=== PATIENT | female | born 2000 | race Caucasian/White ===

== ENCOUNTER → 2025-03-29 | Outpatient (CLI) | payer OTHER, SELFPAY ==
--- OUTSIDE RECORDS SUMMARY | 2025-03-29 07:21 | XMS RPT_ITS | CCD ---
Author Organization [facility] Care Team Providers Care Churn Operator Margarine Name Role Phone Michael Sanchez Attending Unavailable Adarsh, Caty D Primary Care Unavailable Adarsh, Caty D Attending Unavailable Lima, Caty D Primary Care Unavailable Lima, Caty D Admitting Unavailable Lima, Caty D Admitting Unavailable Lima, Caty D Attending Unavailable Adarsh, Caty D Primary Care Unavailable Lima, Caty Unavailable Unavailable Adarsh, Caty D Unavailable Unavailable Faustino Tellez Unavailable Unavailable Unavailable Unavailable Unavailable Unavailable Unavailable Unavailable Unavailable Delroy Gross Attending Unavailabl e Delroy Gross Referring Unavailabl e Rosalinda, MsStacia Bhardwaj Primary Care Unav ailable Delroy Gross Referring Unavailabl e Rosalinda, MsStacia Bhardwaj Primary Care Unav ailable Delroy Gross Attending Unavailabl e Delroy Gross Attending Unavailabl e Delroy Gross Referring Unavailabl e Rosalinda, MsStacia Bhardwaj Primary Care Unav ailable SHERLYN, Dr. JOSEF ORTEZ Attending Unavailab arianne Tellez, Ms. Faustino Bhardwaj Primary Care Unav ailable Rosalinda, Ms. Faustino Bhardwaj Referring Unav ailable SHERLYN, Dr. JOSEF ORTEZ Attending Melissaab arianne PLATA, Dr. JOSEF ORTEZ Referring Unavailab arianne Tellez, Ms. Faustino Bhardwaj Primary Care Unav Faustino Ruiz Unavailable Unavailable Faustino Womack Primary Care Provider Анна López DO Primary Care Provider Maribel DO Анна C Primary Care Provider SHEETS, АННА C Attending Unavailable SHEETS, АННА C Primary Care Unavailable SHEETS, АННА C Referring Unavailable SHEETS, АННА C Primary Care Unavailable SHEETS, АННА C Referring Unavailable SHEETS, АННА C Primary Care Unavailable SELF Referring Unavailable SHEETS, АННА C Attending Unavailable SHEETS, АННА C Attending Unavailable SELF Referring Unavailable SHEETS, АННА C Primary Care Unavailable Faustino Womack Primary Care Provider DELROY GROSS Attending Unavailable FAUSTINO TELLEZ Primary Care Unavailable SHEETS, АННА Lucas Primary Care Unavailable JUAN MCDERMOTT Referring Unavailable JUAN MCDERMOTT Attending Unavailable Assessment, Health Risk Referring Unavaila ble Assessment, Health Risk Attending Unavaila ble Allergies Allergy Classification Reported Allergen(s) Allergy Type Date of Onset Reaction(s) Facility Cephalosporins (antibiotic) (1 source) Cephalosporins (Antibiotic) Drug Allergy 4 [facility] (20 sources) Cephalosporins (Antibiotic); Translations: [cephalosporins] Propensity to adverse reactions to drug (disorder) 4 [facility] (20 sources) Pollen; Translations: [Pollen] Propensity to adverse reactions to drug (disorder) Sneezing [facility] (3 sources) Bee pollen; Translations: [BEE POLLEN] Drug Allergy 4 [facility] Medications Current Medications Medication Drug Class(es) Dates Sig (Normalized) Sig (Original) amitriptyline hydrochloride 25 mg oral tablet (20 sources) Tricyclic Antidepressant Start: 09-23-2024 End: 12-28-2024 take 1 tablet by mouth once daily at bedtime amitriptyline (ELAVIL) 25 mg tablet Indications: Anxiety with depression Take 1 tablet by mouth daily at bedtime. 90 tablet 12/28/2024 Active Start: 06-16-2023 End: 09-21-2024 take 1 tablet by mouth once daily at bedtime amitriptyline (ELAVIL) 25 mg tablet Take 1 tablet by mouth daily at bedtime. 90 tablet 1 07/06/2024 10:05 AM EDT 03/23/2024 09/21/2024 Discontinued Start: 03-26-2021 End: 08-08-2024 take 1 tablet by mouth once daily at bedtime amitriptyline (ELAVIL) 10 mg tablet Take 1 tablet by mouth daily at bedtime. 30 tablet 11 08/11/2024 7:41 AM EDT 08/08/2024 Active Comment on above: Take 1 tablet by surjit th daily at bedtime. Take 1 tablet (10 mg ) by mouth once daily at bedtime. azithromycin 250 mg oral tablet (5 sources) Macrolide Antimicrobial Start: 01-14-2024 azithromycin (ZITHROMAX Z-LESLIE) 250 mg tablet Indications: Bacterial sinusitis 2 tablets by mouth first day then 1 tablet the next 4 days 6 tablet 01/14/2024 Active clobetasol propionate 0.0005 mg/mg topical ointment (20 sources) Corticosteroid Start: 06-05-2023 End: 08-08-2024 clobetasol (TEMOVATE) 0.05 % ointment Apply to vulva 1-2 times/week 45 g 06/08/2023 3:20 PM EST 06/05/2023 Active Start: 09-11-2020 End: 06-05-2023 clobetasol (Temovate) 0.05 % ointment Apply to affected area at bedtime for 2 weeks, then 2-3 times a week. 0 09/11/2020 06/05/2023 Discontinued (Reorder) Start: 09-11-2020 Clobetasol Pro pionate 0.05 % External Ointment Apply small amount to the vulva 2-3 times/week Quantity: 1 Refills: 1 Ordered: 25-Aug-2022 Delroy Rivera Start : 11-Sep-2020 Active Start: 09-11-2020 Clobetasol Pro pionate 0.05 % External Ointment Apply small amount to the vulva 2-3 times/week Quantity: 1 Refills: 1 Ordered: 07-Apr-2022 Delroy Rivera Start : 11-Sep-2020 Active Start: 09-11-2020 Clobetasol Pro pionate 0.05 % External Ointment Apply to affected area at bedtime for 2 weeks, then 2-3 times a week. Quantity: 1 Refills: 1 Ordered: 10-Sep-2021 Walter YULIADelroy Start : 11-Sep-2020 Active Start: 09-11-2020 Clobetasol Pro pionate 0.05 % External Ointment apply sparingly to affected area QHS x 30 days, then every other night x 30 days, then twice weekly x 30days Quantity: 1 Refills: 2 Ordered: 11-Sep-2020 Kwan ROHIT-MAGALI, ROHIT-KRISTINMarci Start : 11-Sep-2020 Active Comment on above: Apply to vulva 1-2 t imes/week estradiol (E2) emollient cream 0.2 mg/gram (CPD) (11 sources) Start: 06-16-2023 estradiol (E2) emollient cream 0.2 mg/gram (CPD) Use 0.5 g vaginally three times a week. 20 g 06/16/2023 Active Start: 06-16-2023 estradiol (E2) emollient cream 0.2 mg/gram (CPD) Use 0.5 g vaginally three times a week. 20 g 0 06/16/2023 Active Comment on above: Use 0.5 g vaginally three times a week. magnesium citrate 58.2 mg/ml oral solution (2 sources) Start: 0 take 150 mL by mouth once daily magnesium citrate solution Take 150 mL by mouth once daily. 02/14/2020 Active multivitamin tablet (11 sources) take 1 tablet by mouth once daily multivitamin tablet Take 1 tablet by mouth once daily. Active take 1 tablet by mouth once raheem y multivitamin tablet Take 1 tablet by mouth once daily. 0 Active Comment on above: Take 1 tablet by surjit th once daily. mupirocin 0.02 mg/mg topical ointment (18 sources) RNA Synthetase Inhibitor Antibacterial Start: 10-13-2020 mupirocin (Bactroban) 2 % ointment Mupirocin 2 % External Ointment Quantity: 22 Refills: 0 Start : 13-Oct-2020 Active 10/13/2020 Active Start: 10-13-2020 Mupirocin 2 % External Ointment Quantity: 22 Refills: 0 Ordered: 13-Oct-2020 DO Start : 13-Oct-2020 Active pharmacy compounding accessory misc (1 source) Start: 08-08-2024 pharmacy compo unding accessory misc Indications: Vulvodynia 0.5 mL 3 (three) times a week. Apply a thin layer around the vaginal opening 2-3 times per week 18 each 4 08/08/2024 Active progesterone 200 mg oral capsule (18 sources) Progesterone Start: 01-15-2024 progesterone m icronized (PROMETRIUM) 200 mg capsule Take one capsule by mouth at bedtime for 14 days if no period for 3 months 14 capsule 11 09/22/2024 5:08 PM EDT 01/15/2024 Active Start: 03-26-2021 take 1 capsule by mo ut at bedtime Progesterone 200 MG Oral Capsule TAKE 1 CAPSULE Bedtime for the first 14 days of the month Quantity: 60 Refills: 3 Ordered: 26-Mar-2021 Delroy Rivera Start : 26-Mar-2021 Active tropicamide 10 mg/ml ophthalmic solution (2 sources) Anticholinergic Start: 09-06-2024 End: 09-06-2024 tropicamide 1 % 1 drop (MYDRIACYL) Start: 09-06-2024 End: 09-06-2024 1 drop, BOTH EYES, DIRECT ED, Starting on Thu09/06/24 at 0830, Until Thu09/06/24 at 2028, Administer for dilation Completed/Discontinued Medications Medication Drug Class(es) Dates Sig (Normalized) Sig (Original) amoxicillin 875 mg / clavulanate 125 mg oral tablet (4 sources) Penicillin-class Antibacterial Start: 10-13-2020 take 1 tablet by mouth twice daily Amoxicillin-Pot Clavulanate 875-125 MG Oral Tablet TAKE 1 TABLET BY MOUTH TWICE DAILY Quantity: 20 Refills: 0 Ordered: 13-Oct-2020 DO Start : 13-Oct-2020 Active Compound Drug (4 sources) Start: 09-10-2021 Compound Drug Estradiol 0.03% with 0.1% Testosterone ointment in a verabase.Pt to apply 0.5 ml to vestibule 2-3 times a week12 weeks with 3 refills. Quantity: 1 Refills: 3 Ordered: 08-Apr-2022 Delroy Rivera Start : 10-Sep-2021 Active Start: 09-10-2021 Compound Drug Estradiol 0.03% with 0.1% Testosterone ointment in a verabase.Pt to apply 0.5 ml to vestibule three time a week.45 ml with one refill Quantity: 1 Refills: 1 Ordered: 10-Sep-2021 Walter YULIA Delroy Start : 10-Sep-2021 Active estradiol 0.1 mg/ml vaginal cream (12 sources) Estrogen Start: 01-29-2021 Estradiol 0.1 MG/GM Vaginal Cream patient to apply pea sized amount of estrace to vulvovaginal area daily for the next 12 weeks Quantity: 1 Refills: 1 Ordered: 29-Jan-2021 Walter YULIADelroy Start : 29-Jan-2021 Active 05/16 TABS (2 sources) Estrogen 05/16 TA BS Refills: 0 Active 05/16 1-20 MG-MCG Oral Tablet (4 sources) take 1 tablet by mouth once daily 05/16 1-20 MG-MCG Oral Tablet TAKE 1 TABLET DAILY. Quantity: 1 Refills: 11 Ordered: 11-Sep-2020 Fried JESUS, YULIA, Marci Active 24 hr metFORMIN hydrochloride 500 mg extended release oral tablet (8 sources) Biguanide Start: 04-16-2021 take 1 tablet by mouth twice daily metFORMIN HCl ER 500 MG Oral Tablet Extended Release 24 Hour Take 1 tablet twice daily Quantity: 180 Refills: 3 Ordered: 09-Jul-2021 Josef Plata MD Start : 16-Apr-2021 Active Problems Active Problems Problem Classification Problem Date Documented Date Episodic/Chronic Abdominal pain (1 source) Pain in pelvis; Translations: [Pelvic and perineal pain] 06-05-2023 Episodic Anxiety disorders (17 sources) Mixed anxiety and depressive disorder; Translations: [Other specified anxiety disorders] Onset: 06-16-2023 06-16-2023 Chronic Bacterial infection; unspecified site (1 source) Other specified bacterial agents as the cause of diseases classified elsewhere; Translations: [Bacterial sinusitis] Onset: 01-14-2024 Episodic Blindness and vision defects (2 sources) Bilateral myopia of eyes; Translations: [Myopia, bilateral] Onset: 09-06-2024 09-06-2024 Episodic Disorders of lipid metabolism (1 source) Mixed hyperlipidemia; Translations: [Mixed hyperlipidemia] 09-23-2023 Chronic Menopausal disorders (16 sources) Atrophy of vagina; Translations: [Postmenopausal atrophic vaginitis] Chronic Menstrual disorders (20 sources) Menorrhagia; Translations: [Excessive or frequent menstruation] Chronic Other endocrine disorders (17 sources) Polycystic ovary; Translations: [Polycystic ovaries] Chronic Other endocrine disorders (13 sources) Polycystic ovary syndrome; Translations: [Polycystic ovaries] Chronic Other female genital disorders (19 sources) Vulvodynia; Translations: [Vulvodynia, unspecified] 06-05-2023 Chronic Other female genital disorders (13 sources) Abnormal uterine bleeding; Translations: [Unspecified disorders of menstruation and other abnormal bleeding from female genital tract] Chronic Other female genital disorders (17 sources) Vulval irritation; Translations: [Other specified noninflammatory disorders of vulva and perineum] Episodic Other female genital disorders (2 sources) Vaginospasm; Translations: [Vaginismus] Onset: 06-16-2023 06-16-2023 Episodic Other non-traumatic joint disorders (2 sources) Knee pain; Translations: [Knee pain] Episodic Other non-traumatic joint disorders (17 sources) Pain in unspecified knee; Translations: [Knee pain] Episodic Other nutritional; endocrine; and metabolic disorders (18 sources) Body mass index 30+ - obesity; Translations: [Obesity, unspecified] Chronic Other nutritional; endocrine; and metabolic disorders (14 sources) Obese class II; Translations: [Obesity, unspecified] Onset: 06-16-2023 06-16-2023 Chronic Other nutritional; endocrine; and metabolic disorders (1 source) Obesity, unspecified; Translations: [Obesity, Class II, BMI 35-39.9] Onset: 06-16-2023 Chronic Other skin disorders (8 sources) Lichen sclerosus et atrophicus; Translations: [Lichen sclerosus] 06-05-2023 Chronic Other skin disorders (19 sources) Macular eruption; Translations: [Rash and other nonspecific skin eruption] Episodic Other upper respiratory infections (2 sources) Bacterial sinusitis; Translations: [Chronic sinusitis, unspecified] Onset: 01-14-2024 01-14-2024 Chronic Past or Other Problems Problem Classification Problem Date Documented Da te Episodic/Chronic Administrative/social admission (5 sources) Patient encounter status; Translations: [Encounter for blood-alcohol and blood-drug test] Onset: 06-20-2023 06-18-2023 Episodic Immunizations and screening for infectious disease (6 sources) Tuberculosis screening status; Translations: [Encounter for screening for respiratory tuberculosis] Onset: 06-16-2023 06-18-2023 Episodic Malaise and fatigue (2 sources) Fatigue; Translations: [Other fatigue] Onset: 06-20-2023 06-16-2023 Episodic Other connective tissue disease (11 sources) Pelvic floor dysfunction; Translations: [Other specified disorders of muscle] Onset: 06-23-2023 06-23-2023 Episodic Other female genital disorders (1 source) Vaginismus; Translations: [Vaginismus] Onset: 06-16-2023 Episodic Other screening for suspected conditions (not mental disorders or infectious disease) (5 sources) Encounter for screening for diseases of the blood and blood-forming organs and certain disorders involving the immune mechanism; Translations: [Encounter for screening for other suspected endocrine disorder] Onset: 06-20-2023 Episodic Unclassified (17 sources) Finding of menstrual bleeding; Translations: [Menstruation] Comment on above: Onset age 11 years; NEGATED: Highlighted row has not occurred!Residual codes; unclassified (4 sources) Disease Episodic Results Test Name Value Interpretation Reference Range Facility Hepatitis B Surface Antibody on 01-16-2025 HEP B Surf Ab Non-Reactive Normal [facility] Comment on above: Result Comment: <8.5 mIU/mL: Non-Reactive 8.5<= x <11.5 mIU/mL: Indeterminate >=11.5 mIU/mL: Reactive Non Reactive: Inconsistent with immunity less than <10 mIU/mL Reactive: Consistent with immunity greater than or equal to 10 mIU/mL Performed By: #### L [id number] #### [facility] [address] [place], [place], [address] TSH W/REFLEX TO FT4on 2024 TSH W/REFLEX TO FT4 1.89 mIU/L Normal [facility] Comment on above: Order Comment: FASTI NG:UNKNOWN FASTING: UNKNOWN Result Comment: Refe rence Range > or = 20 Years 0.40-4.50 Ranges First trimester 0.26-2.66 Second trimester 0.55-2.73 Third trimester 0.43-2.91 Performed By: #### 3 [id number] #### [facility] [address], [address] [place] [address] Cat Cracker Operator: Rudy Tong 01-14-2024 CNOV Office Visit (AGFAMP LE) EVELINA SAM ([id number]) 89 F Date Time Provider Department 01/14/24 9:00 AM АННА LÓPEZ During your visit today, we recorded the following information about you: Temperature Pulse Respiration Blood pressure 97.9 degrees 81/minute 16/minute 110/68 Weight Height 123.4 kg 1.803 m Анна López DO 01/14/2024 1:09 PM Signed Subjective HPI Pt is here for f/u for depression and anxiety Mood is well controlled on elavil 25 mg daily She has had a cough productive of green sputum, chest tightness for 4 weeks She was taking allergy relief medication, now is taking robitussin She has sinus drainage, ear pain that started today, no sore throat, no nausea or vomiting ALLERGIES Allergen Reactions Cephalosporins Hives Current Outpatient Medications Medication Sig Dispense Refill amitriptyline (ELAVIL) 25 mg tablet Take 1 tablet by mouth daily at bedtime. 90 tablet 0 multivitamin tablet Take 1 tablet by mouth once daily. estradiol (E2) emollient cream 0.2 mg/gram (CPD) Use 0.5 g vaginally three times a week. 20 g clobetasol (TEMOVATE) 0.05 % ointment Apply to vulva 1-2 times/week 45 g 0 No current facility-administered medications for this visit. ACTIVE PROBLEM LIST Obesity, Class II, Bmi 35-39.9 Anxiety With Depression Pelvic Floor Dysfunction Social History Tobacco Use Smoking status: Never Smokeless tobacco: Never Vaping Use Vaping status: Never Used Substance Use Topics Alcohol use: Yes Comment: socially Drug use: Never Family History Problem Relation Age of Onset Diabetes Mother Hypertension Mother Hypertension Father Hyperlipidemia Father other (hypertrophic cardiomyopathy) Father other (other) Brother Melanoma Maternal Grandmother Hypertension Maternal Grandmother Melanoma Maternal Grandfather Hypertension Maternal Grandfather Hypertension Paternal Grandmother Diabetes Paternal Grandmother Hypertension Paternal Grandfather Melanoma Maternal Aunt Reviewed past medical history, family history and surgeries. All medications and supplements were reviewed with the patient. Review of Systems Constitutional: Negative for chills, diaphoresis, fever, malaise/fatigue and weight loss. HENT: Positive for congestion. Negative for ear pain and hearing loss. Eyes: Negative for blurred vision and double vision. Respiratory: Positive for cough and sputum production. Negative for shortness of breath. Cardiovascular: Negative for chest pain, palpitations and leg swelling. Gastrointestinal: Negative for constipation, diarrhea and heartburn. Genitourinary: Negative for dysuria and frequency. Musculoskeletal: Negative for back pain, falls, joint pain and myalgias. Skin: Negative for itching and rash. Neurological: Negative for dizziness, weakness and headaches. Endo/Heme/Allergies: Does not bruise/bleed easily. Psychiatric/Behavioral: Negative for depression and substance abuse. The patient does not have insomnia. Objective BP 110/68 Pulse 81 Temp 36.6 ?C (97.9 ?F) Resp 16 Ht 180.3 cm (5' 11) Wt 123.4 kg (272 lb) SpO2 99% BMI 37.94 kg/m? Physical Exam Constitutional: Appearance: Normal appearance. She is obese. HENT: Head: Normocephalic and atraumatic. Nose: Nose normal. Mouth/Throat: Mouth: Mucous membranes are moist. Dentition: Normal dentition. Eyes: General: Lids are normal. Extraocular Movements: Extraocular movements intact. Conjunctiva/sclera: Conjunctivae normal. Pupils: Pupils are equal, round, and reactive to light. Neck: Thyroid: No thyroid mass or thyromegaly. Vascular: No carotid bruit. Trachea: Phonation normal. Cardiovascular: Rate and Rhythm: Normal rate and regular rhythm. Heart sounds: Normal heart sounds. No murmur heard. No friction rub. No gallop. Pulmonary: Effort: Pulmonary effort is normal. Breath sounds: Normal breath sounds. No wheezing or rales. Abdominal: General: Bowel sounds are normal. There is no distension. Palpations: Abdomen is soft. There is no mass. Tenderness: There is no abdominal tenderness. Musculoskeletal: General: No swelling or tenderness. Normal range of motion. Cervical back: Normal range of motion and neck supple. No edema. Lymphadenopathy: Cervical: No cervical adenopathy. Skin: General: Skin is warm and dry. Findings: No erythema or rash. Nails: There is no clubbing. Neurological: Mental Status: She is alert and oriented to person, place, and time. Cranial Nerves: No cranial nerve deficit. Motor: Motor function is intact. Coordination: Coordination normal. Gait: Gait is intact. Psychiatric: Attention and Perception: Attention normal. Mood and Affect: Mood and affect normal. Speech: Speech normal. Behavior: Behavior normal. Behavior is cooperative. Thought Content: Thought content normal. (more content not included)... Normal [facility] 09-22-2023 [place] Telephone (AGWebChaletLE) EVELINA SAM ([id number]) 89 F Date Time Provider Department 09/22/23 АННА LÓPEZ During your visit today, we recorded the following information about you: Angle Brar MA 09/22/2023 7:41 AM Signed ----- Message from Angelina Martinez MA sent at 06/23/2023 5:27 PM EST ----- FLPs in 3 months Анна López DO 09/23/2023 4:33 PM Signed Order attached DO David Newell Julie, MA 09/23/2023 5:29 PM Signed Left message informing patient, phone number to reach the office was left for any questions or concerns. Angelina Martinez MA Allergies As of Date: 09/22/2023 Noted Allergy Reaction CEPHALOSPORINS 06/05/2023 4 - Hives Date Reviewed: 07/14/2023 Reviewed by: Анна López DO - Fully Assessed Reason for Visit: Lab Orders [1688] Primary Visit Diagnosis:Hyperlipidemia, mixed [E78.2] Order(s):LIPID PANEL BASIC [SQLIPB] Order #: [id number] FUTURE Prescriptions as of 09/23/2023 - amitriptyline (ELAVIL) 25 mg tablet Take 1 tablet by mouth daily at bedtime. - multivitamin tablet Take 1 tablet by mouth once daily. - estradiol (E2) emollient cream 0.2 mg/gram (CPD) Use 0.5 g vaginally three times a week. - clobetasol (TEMOVATE) 0.05 % ointment Apply to vulva 1-2 times/week Problem List As Of Date 09/22/2023 Noted Resolved Obesity, Class II, BMI 35-39.9 [E66.9] 06/16/2023 Anxiety with depression [F41.8] 06/16/2023 Pelvic floor dysfunction [M62.89] 06/23/2023 Encounter Status:Closed by ANGELINA MARTINEZ on 09/23/23 [facility] CNOVon 07-14-2023 CNOV Office Visit (AGCHRIS SCHMID) EVELINA SAM ([id number]) 89 F Date Time Provider Department 07/14/23 8:00 AM АННА LÓPEZ During your visit today, we recorded the following information about you: Temperature Pulse Respiration Blood pressure 97.3 degrees 77/minute 16/minute 114/76 Weight Height 125.2 kg 1.803 m Анна López DO 07/27/2023 5:04 PM Signed Subjective The history is provided by the patient. Pt is here for f/u for depression She feels much better after increasing the dosage of amitriptyline from 10 mg to 25 mg daily She has had a dry mouth, but no other problems with the increase in dosage ALLERGIES Allergen Reactions Cephalosporins Hives Current Outpatient Medications Medication Sig Dispense Refill multivitamin tablet Take 1 tablet by mouth once daily. estradiol (E2) emollient cream 0.2 mg/gram (CPD) Use 0.5 g vaginally three times a week. 20 g amitriptyline (ELAVIL) 25 mg tablet Take 1 tablet by mouth daily at bedtime. 90 tablet 0 clobetasol (TEMOVATE) 0.05 % ointment Apply to vulva 1-2 times/week 45 g 0 No current facility-administered medications for this visit. ACTIVE PROBLEM LIST Obesity, Class II, Bmi 35-39.9 Vaginismus Anxiety With Depression Pelvic Floor Dysfunction Social History Tobacco Use Smoking status: Never Smokeless tobacco: Never Vaping Use Vaping Use: Never used Substance Use Topics Alcohol use: Yes Comment: socially Drug use: Never Family History Problem Relation Age of Onset Diabetes Mother Hypertension Mother Hypertension Father Hyperlipidemia Father other (hypertrophic cardiomyopathy) Father other (other) Brother Melanoma Maternal Grandmother Hypertension Maternal Grandmother Melanoma Maternal Grandfather Hypertension Maternal Grandfather Hypertension Paternal Grandmother Diabetes Paternal Grandmother Hypertension Paternal Grandfather Melanoma Maternal Aunt Reviewed past medical history, family history and surgeries. All medications and supplements were reviewed with the patient. Review of Systems Constitutional: Negative for chills, diaphoresis, fever, malaise/fatigue and weight loss. HENT: Negative for ear pain and hearing loss. Eyes: Negative for blurred vision and double vision. Respiratory: Negative for cough and shortness of breath. Cardiovascular: Negative for chest pain, palpitations and leg swelling. Gastrointestinal: Negative for constipation, diarrhea and heartburn. Genitourinary: Negative for dysuria and frequency. Musculoskeletal: Negative for back pain, falls, joint pain and myalgias. Skin: Negative for itching and rash. Neurological: Negative for dizziness, weakness and headaches. Endo/Heme/Allergies: Does not bruise/bleed easily. Psychiatric/Behavioral: Negative for depression and substance abuse. The patient does not have insomnia. Objective BP 114/76 Pulse 77 Temp 36.3 ?C (97.3 ?F) Resp 16 Ht 180.3 cm (5' 11) Wt 125.2 kg (276 lb) SpO2 99% BMI 38.49 kg/m? Physical Exam Constitutional: Appearance: Normal appearance. She is obese. HENT: Head: Normocephalic and atraumatic. Nose: Nose normal. Mouth/Throat: Mouth: Mucous membranes are moist. Dentition: Normal dentition. Eyes: General: Lids are normal. Extraocular Movements: Extraocular movements intact. Conjunctiva/sclera: Conjunctivae normal. Pupils: Pupils are equal, round, and reactive to light. Neck: Thyroid: No thyroid mass or thyromegaly. Vascular: No carotid bruit. Trachea: Phonation normal. Cardiovascular: Rate and Rhythm: Normal rate and regular rhythm. Heart sounds: Normal heart sounds. No murmur heard. No friction rub. No gallop. Pulmonary: Effort: Pulmonary effort is normal. Breath sounds: Normal breath sounds. No wheezing or rales. Abdominal: General: Bowel sounds are normal. There is no distension. Palpations: Abdomen is soft. There is no mass. Tenderness: There is no abdominal tenderness. Musculoskeletal: General: No swelling or tenderness. Normal range of motion. Cervical back: Normal range of motion and neck supple. No edema. Lymphadenopathy: Cervical: No cervical adenopathy. Skin: General: Skin is warm and dry. Findings: No erythema or rash. Nails: There is no clubbing. Neurological: Mental Status: She is alert and oriented to person, place, and time. Cranial Nerves: No cranial nerve deficit. Motor: Motor function is intact. Coordination: Coordination normal. Gait: Gait is intact. Psychiatric: Attention and Perception: Attention normal. Mood and Affect: Mood and affect normal. Speech: Speech normal. Behavior: Behavior normal. Behavior is cooperative. Thought Content: Thought content normal. Cognition and Memory: Cognition and memory normal. Judgment: Judgment normal. ASSESSMENT/PLAN: 1. Anxiety with depression - ICD9: 300.4 (more content not included)... Normal [facility] BLOOD TB SCREEN, INCUBATEDon 06-20-2023 M. tuberculosis tuberculin stim IFN-g Ql (Bld) Negative Normal [facility] Comment on above: Order Comment: Speci men Type: BLOOD SPECIMEN Ordering Facility: [facility] Address: [address] [place] [address] Performed By: #### I NTPGP #### [facility] CLIA [id number] [address] [place] [address] [place] [address] [place] MITOGEN MINUS NIL >9.99 Normal >=0.50 [facility] Comment on above: Order Comment: Speci men Type: BLOOD SPECIMEN Ordering Facility: [facility] Address: [address] [place] [address] Performed By: #### I NTPGP #### [facility] CLIA [id number] [address] [place] [address] OF [facility] TB GAMMA INTERPRETATION Infection with M. tuberculosis complex is unlikely. If latent tuberculosis infection is highly suspected, a negative result does not rule out the infection. Specimens from immunocompromised patients and those <5 years of age may show false negative results. In case of a contact investigation, please repeat 8-12 weeks after a known exposure. Normal [facility] Comment on above: Order Comment: Speci men Type: BLOOD SPECIMEN Ordering Facility: [facility] Address: [address] [place] [address] Performed By: #### I NTPGP #### [facility] CLIA [id number] [address] [place] [address] TB NIL 0.01 IU/mL Normal <=8.00 [facility] Comment on above: Order Comment: Speci men Type: BLOOD SPECIMEN Ordering Facility: [facility] Address: [address] [place] [address] Performed By: #### I NTPGP #### [facility] CLIA [id number] [address] [place] [address] [place] TB1 AG MINUS NIL 0.00 IU/mL Normal <0.35 [facility] Comment on above: Order Comment: Speci men Type: BLOOD SPECIMEN Ordering Facility: [facility] Address: [address] [place] [address] Performed By: #### I NTPGP #### [facility] CLIA [id number] [address] [place] [address] [place] TB2 AG MINUS NIL 0.01 IU/mL Normal <0.35 [facility] Comment on above: Order Comment: Speci vandana Type: BLOOD SPECIMEN Ordering Facility: [facility] Address: [address] [place] [address] Performed By: #### I NTPGP #### [facility] CLIA [id number] [address] [facility] DESK [address] [place] CBC panel Auto (Bld)on 06-20 Erythrocyte distribution width (RBC) [Ratio] 13.0 % 11.5 - 15.0 % [facility] Hematocrit (Bld) [Volume fraction] 40.9 % 36.0 - 46.0 % [facility] Hemoglobin (Bld) [Mass/Vol] 13.0 g/dL 11.5 - 15.5 g/dL [facility] MCH (RBC) [Entitic mass] 28.0 pg 26.0 - 34.0 pg [facility] MCHC (RBC) [Mass/Vol] 31.8 g/dL 30.5 - 36.0 g/dL [facility] MCV (RBC) [Entitic vol] 88.1 fL 80.0 - 100.0 fL [facility] Platelet mean volume (Bld) [Entitic vol] 12.4 fL 9.0 - 12.7 fL [facility] Platelets (Bld) [#/Vol] 239 10*3/uL 150 - 400 k/uL [facility] RBC (Bld) [#/Vol] 4.64 10*6/uL 3.90 - 5.2 0 m/uL [facility] WBC (Bld) [#/Vol] 8.35 10*3/uL 3.70 - 11.00 k/uL [facility] Erythrocyte distribution width (RBC) [Ratio] 13.0 % Normal 11.5-15.0 [facility] Comment on above: Order Comment: Abundio ross Type: BLOOD SPECIMEN Ordering Facility: [facility] Address: [address] [id number] Performed By: #### 5 8410-2 #### [facility] CLIA [id number] [address] [place] [address] OF [facility] Hematocrit (Bld) [Volume fraction] 40.9 % Normal 36.0-46.0 [facility] Comment on above: Order Comment: Speci men Type: BLOOD SPECIMEN Ordering Facility: [facility] Address: [address] [place] [address] Performed By: #### 5 8410-2 #### [facility] CLIA [id number] [address] [place] [address] [place] [facility] Hemoglobin (Bld) [Mass/Vol] 13.0 g/dL Normal 11.5-15.5 [facility] Comment on above: Order Comment: Speci men Type: BLOOD SPECIMEN Ordering Facility: [facility] Address: [address] [place] [address] Performed By: #### 5 8410-2 #### [facility] CLIA [id number] [address] [place] [address] [place] MCH (RBC) [Entitic mass] 28.0 pg Normal 26.0-34.0 [facility] Comment on above: Order Comment: Speci men Type: BLOOD SPECIMEN Ordering Facility: [facility] Address: [address] [place] [address] Performed By: #### 5 8410-2 #### [facility] CLIA [id number] [address] [place] MCHC (RBC) [Mass/Vol] 31.8 g/dL Normal 30.5-36.0 [facility] Comment on above: Order Comment: Speci men Type: BLOOD SPECIMEN Ordering Facility: [facility] Address: [address] [place] [address] Performed By: #### 5 8410-2 #### [facility] CLIA [id number] [address] [place] [address] [place] MCV (RBC) [Entitic vol] 88.1 fL Normal 80.0-100.0 [facility] Comment on above: Order Comment: Speci men Type: BLOOD SPECIMEN Ordering Facility: [facility] Address: [address] [place] [address] Performed By: #### 5 8410-2 #### [facility] CLIA [id number] [address] [place] [address] [place] Platelet mean volume (Bld) [Entitic vol] 12.4 fL Normal 9.0-12.7 [facility] Comment on above: Order Comment: Speci men Type: BLOOD SPECIMEN Ordering Facility: [facility] Address: [address] [place] [address] Performed By: #### 5 8410-2 #### [facility] CLIA [id number] [address] [place] [address] [place] Platelets (Bld) [#/Vol] 239 10*3/uL Normal 150-400 [facility] Comment on above: Order Comment: Speci men Type: BLOOD SPECIMEN Ordering Facility: [facility] Address: [address] [place] [address] Performed By: #### 5 8410-2 #### [facility] CLIA [id number] [address] [place] [address] [place] RBC (Bld) [#/Vol] 4.64 10*6/uL Normal 3.90-5.20 [facility] Comment on above: Order Comment: Speci men Type: BLOOD SPECIMEN Ordering Facility: [facility] Address: [address] [place] [address] Performed By: #### 5 8410-2 #### [facility] CLIA [id number] [address] [place] [address] [place] WBC (Bld) [#/Vol] 8.35 10*3/uL Normal 3.70-11.00 [facility] Comment on above: Order Comment: Speci men Type: BLOOD SPECIMEN Ordering Facility: [facility] Address: [address] [place] [address] Performed By: #### 5 8410-2 #### [facility] CLIA [id number] [address] [place] [address] [facility] [place] Comprehensive metabolic 2000 panelon 06-20-2023 Albumin [Mass/Vol] 4.3 g/dL 3.9 - 4.9 g/dL [facility] ALP [Catalytic activity/Vol] 78 U/L 34 - 123 U/L [facility] ALT With P-5'-P [Catalytic activity/Vol] 11 U/L 7 - 38 U/L [facility] Anion gap [Moles/Vol] 10 mmol/L 9 - 18 mmol/L [facility] AST With P-5'-P [Catalytic activity/Vol] 16 U/L 13 - 35 U/L [facility] Bilirubin [Mass/Vol] 1.5 mg/dL High 0.2 - 1.3 mg/dL [facility] Calcium [Mass/Vol] 9.3 mg/dL 8.5 - 10.2 mg/dL [facility] Chloride [Moles/Vol] 103 mmol/L 97 - 105 mmol/L [facility] CO2 [Moles/Vol] 25 mmol/L 22 - 30 mmol/L [facility] Creatinine [Mass/Vol] 0.75 mg/dL 0.58 - 0.96 mg/dL [facility] Estimated Glomerular Filtration Rate 115 mL/min/1.73m >=60 mL/min/1.73 m [facility] Glucose [Mass/Vol] 83 mg/dL 74 - 99 mg/dL [facility] Potassium [Moles/Vol] 4.5 mmol/L 3.7 - 5.1 mmol/L [facility] Protein [Mass/Vol] 7.4 g/dL 6.3 - 8.0 g/dL [facility] Sodium [Moles/Vol] 138 mmol/L 136 - 144 mmol/L [facility] Urea nitrogen [Mass/Vol] 10 mg/dL 7 - 21 mg/dL [facility] Albumin [Mass/Vol] 4.3 g/dL Normal 3.9-4.9 [facility] Comment on above: Order Comment: Speci men Type: BLOOD SPECIMEN Ordering Facility: [facility] Address: [address] [place] [address] Performed By: #### 2 4323-8, 78604-0, 3016-3 #### [facility] CLIA [id number] [address] [place] [address] OF [facility] ALP [Catalytic activity/Vol] 78 U/L Normal 34-123 [facility] Comment on above: Order Comment: Speci men Type: BLOOD SPECIMEN Ordering Facility: [facility] Address: [address] [place] [address] Performed By: #### 2 4323-8, 23508-2, 3016-3 #### [facility] CLIA [id number] [address] [place] [address] [place] ALT With P-5'-P [Catalytic activity/Vol] 11 U/L Normal 7-38 [facility] Comment on above: Order Comment: Speci men Type: BLOOD SPECIMEN Ordering Facility: [facility] Address: [address] [place] [address] Performed By: #### 2 4323-8, 15054-5, 3016-3 #### [facility] CLIA [id number] [address] [place] [address] [place] Anion gap [Moles/Vol] 10 mmol/L Normal 9-18 [facility] Comment on above: Order Comment: Speci men Type: BLOOD SPECIMEN Ordering Facility: [facility] Address: [address] [place] [address] Performed By: #### 2 4323-8, 64222-0, 6-3 #### [facility] CLIA [id number] [address] [place] [address] [place] AST With P-5'-P [Catalytic activity/Vol] 16 U/L Normal 13-35 [facility] Comment on above: Order Comment: Speci men Type: BLOOD SPECIMEN Ordering Facility: [facility] Address: [address] [place] [address] Performed By: #### 2 4323-8, 65822-8, 3016-3 #### [facility] CLIA [id number] [address] [place] [address] [place] Bilirubin [Mass/Vol] 1.5 mg/dL High 0.2-1.3 [facility] Comment on above: Order Comment: Speci men Type: BLOOD SPECIMEN Ordering Facility: [facility] Address: [address] [place] [address] Performed By: #### 2 4323-8, 99935-0, 6-3 #### [facility] CLIA [id number] [address] [place] [address] [place] Calcium [Mass/Vol] 9.3 mg/dL Normal 8.5-10.2 [facility] Comment on above: Order Comment: Speci men Type: BLOOD SPECIMEN Ordering Facility: [facility] Address: [address] [place], [place] [address] Performed By: #### 2 4323-8, 59019-3, 3015-3 #### [facility] CLIA [id number] [address] [place] [address] [place] Chloride [Moles/Vol] 103 mmol/L Normal 97-105 [facility] Comment on above: Order Comment: Speci men Type: BLOOD SPECIMEN Ordering Facility: [facility] Address: [address] [place], [place] [address] Performed By: #### 2 4323-8, 95773-1, 3015-3 #### [facility] CLIA [id number] [address] [place] [address] [place] CO2 [Moles/Vol] 25 mmol/L Normal 22-30 [facility] Comment on above: Order Comment: Speci men Type: BLOOD SPECIMEN Ordering Facility: [facility] Address: [address] [place] [address] Performed By: #### 2 4323-8, 98258-5, 3015-3 #### [facility] CLIA [id number] [address] [place] [address] [place] Creatinine [Mass/Vol] 0.75 mg/dL Normal 0.58-0.96 [facility] Comment on above: Order Comment: Speci men Type: BLOOD SPECIMEN Ordering Facility: [facility] Address: [address] [place] [address] Performed By: #### 2 4323-8, 56762-4, 6-3 #### [facility] CLIA [id number] [address] [place] [address] [place] Creatinine and Glomerular filtration rate.predicted panel (S/P/Bld) 115 mL/min/1.73m??? Normal >=60 [facility] Comment on above: Order Comment: Abundio ross Type: BLOOD SPECIMEN Ordering Facility: [facility] Address: [address] [place] [address] Result Comment: Alena mated Glomerular Filtration Rate (eGFR) is calculated using the 2020 CKD-EPI creatinine equation. This equation utilizes serum creatinine, sex, and age as parameters. The creatinine assay has traceable calibration to isotope dilution-mass spectrometry. Refer to KDIGO guidelines for clinical interpretation. In patients with unstable renal function, e.g. those with acute kidney injury, the eGFR may not accurately reflect actual GFR. Performed By: #### 2 4323-8, 26518-6, 3016-3 #### [facility] CLIA [id number] [address] [place] [address] [place] Glucose [Mass/Vol] 83 mg/dL Normal 74-99 [facility] Comment on above: Order Comment: Abundio ross Type: BLOOD SPECIMEN Ordering Facility: [facility] Address: [address] [place] [address] Result Comment: The [place] Diabetes Association (ADA) provides guidance for cutoff values for fasting glucose and random glucose. The ADA defines fasting as no caloric intake for at least 8 hours. Fasting plasma glucose results between 100 to 125 mg/dL indicate increased risk for diabetes (prediabetes). Fasting plasma glucose results greater than or equal to 126 mg/dL meet the criteria for diagnosis of diabetes. In the absence of unequivocal hyperglycemia, results should be confirmed by repeat testing. In a patient with classic symptoms of hyperglycemia or hyperglycemic crisis, random plasma glucose results greater than or equal to 200 mg/dL meet the criteria for diagnosis of diabetes. Reference: Standards of Medical Care in Diabetes 2016, [place] Diabetes Association. Diabetes Care. 2016.39(Suppl 1). Performed By: #### 2 4323-8, 29212-1, 3016-3 #### [facility] CLIA [id number] [address] [place] [address] [place] Potassium [Moles/Vol] 4.5 mmol/L Normal 3.7-5.1 [facility] Comment on above: Order Comment: Speci men Type: BLOOD SPECIMEN Ordering Facility[facility] Address: [address] [place] [address] Performed By: #### 2 4323-8, 38351-4, 6-3 #### [facility] CLIA [id number] [address] [place] [address] [place] Protein [Mass/Vol] 7.4 g/dL Normal 6.3-8.0 [facility] Comment on above: Order Comment: Speci men Type: BLOOD SPECIMEN Ordering Facility: [facility] Address: [address] [place] [address] Performed By: #### 2 4323-8, 56658-5, 3015-3 #### [facility] CLIA [id number] [address] [place], [place] [address] [place] [address] [place] [facility] Sodium [Moles/Vol] 138 mmol/L Normal 136-144 [facility] Comment on above: Order Comment: Speci men Type: BLOOD SPECIMEN Ordering Facility[facility] Address: [address] [place] [address] Performed By: #### 2 4323-8, 49894-2, 3015-3 #### [facility] CLIA [id number] [address] [place] [address] [place] Urea nitrogen [Mass/Vol] 10 mg/dL Normal 7-21 [facility] Comment on above: Order Comment: Speci men Type: BLOOD SPECIMEN Ordering Facility: [facility] Address: [address] [place] [address] Performed By: #### 2 4323-8, 64924-4, 6-3 #### [facility] CLIA [id number] [address] [place] [address] [place] Lipid 1996 panelon 4 Cholesterol [Mass/Vol] 154 mg/dL <200 mg/dL [facility] Cholesterol in HDL [Mass/Vol] 50 mg/dL >39 mg/dL [facility] Cholesterol in LDL [Mass/Vol] 73 mg/dL <100 mg/dL [facility] Cholesterol in LDL/Cholesterol in HDL [Mass ratio] 1.46 {ratio} <2.54 [facility] Cholesterol in VLDL [Mass/Vol] 31 mg/dL High <30 mg/dL [facility] Cholesterol non HDL [Mass/Vol] 104 mg/dL <130 mg/dL [facility] Cholesterol.total /Cholesterol in HDL [Mass ratio] 3.08 {ratio} <5.10 [facility] Fasting Time 12 hrs [facility] Triglyceride [Mass/Vol] 155 mg/dL High <150 mg/dL [facility] Cholesterol [Mass/Vol] 154 mg/dL Normal <200 [facility] Comment on above: Order Comment: Abundio ross Type: BLOOD SPECIMEN Ordering Facility[facility] Address: [address] [place] [address] Result Comment: <200 mg/dL, Desirable 200-239 mg/dL, Borderline high >239 mg/dL, High Performed By: #### 2 4323-8, 23377-9, 6-3 #### [facility] CLIA [id number] [address] [place] [address] [facility] Cholesterol in HDL [Mass/Vol] 50 mg/dL Normal >39 [facility] Comment on above: Order Comment: Abundio ross Type: BLOOD SPECIMEN Ordering Facility[facility] Address: [address] [place] [address] Result Comment: 40-5 9 mg/dL, Acceptable >59 mg/dL, High: Negative risk factor for coronary heart disease <40 mg/dL, Low: Positive risk factor for coronary heart disease Performed By: #### 2 4323-8, 98796-6, 6-3 #### [facility] CLIA [id number] [address] [place] [address] [facility] Cholesterol in LDL [Mass/Vol] 73 mg/dL Normal <100 [facility] Comment on above: Order Comment: Abundio ross Type: BLOOD SPECIMEN Ordering Facility[facility] Address: [address] [place] [address] Result Comment: <100 mg/dL, Optimal 100-129 mg/dL, Near optimal/above optimal 130-159 mg/dL, Borderline high 160-189 mg/dL, High >189 mg/dL, Very high Secondary prevention optimal LDL Cholesterol levels are recommended to be < 70 mg/dL Performed By: #### 2 4323-8, 25595-3, 3016-3 #### [facility] CLIA [id number] [address] [place] [address] [place] Cholesterol in LDL/Cholesterol in HDL [Mass ratio] 1.46 {ratio} Normal <2.54 [facility] Comment on above: Order Comment: Abundio ross Type: BLOOD SPECIMEN Ordering Facility[facility] Address: [facility] [place] [address] Result Comment: Lea bryan: 1. National Cholesterol Education Program ATP III Guideline At-A-Glance Quick Desk Reference: National Heart, Lung, and Blood [place]. National Institutes of Health. 2001: NIH Publication No. 01-3305. 2. An International Atherosclerosis Society position paper: global recommendations for the management of dyslipidemia: executive summary, Atherosclerosis. 2014: 232(2):410-413. Cut Points from the Lipid Research [facility]'s Prevalence Study for ages 20 to 24 years can be located in the following reference: Expert Panel on Integrated Guidelines for Cardiovascular Health and Risk Reduction in Children and Adolescents: National Heart, Lung and Blood [place]. Pediatrics. 2011:128(Suppl 5):E564-288. Performed By: #### 2 4323-8, 55105-4, 6-3 #### [facility] CLIA [id number] [address] [place] [address] [place] Cholesterol in VLDL [Mass/Vol] 31 mg/dL High <30 [facility] Comment on above: Order Comment: Abundio ross Type: BLOOD SPECIMEN Ordering Facility[facility] Address: [address] [place] [address] Performed By: #### 2 4323-8, 51543-9, 6-3 #### [facility] CLIA [id number] [address] [place] [address] [place] Cholesterol non HDL [Mass/Vol] 104 mg/dL Normal <130 [facility] Comment on above: Order Comment: Abundio ross Type: BLOOD SPECIMEN Ordering Facility: [facility] Address: [address] [place] [address] Result Comment: <130 mg/dL, Optimal 130-159 mg/dL, Near optimal/above optimal 160-189 mg/dL, Borderline high 190-219 mg/dL, High >219 mg/dL, Very high Secondary prevention optimal non HDL Cholesterol levels are recommended to be <100 mg/dL Performed By: #### 2 4323-8, 27101-9, 3016-3 #### [facility] CLIA [id number] [address] [place] [address] [facility] [place] Cholesterol.total /Cholesterol in HDL [Mass ratio] 3.08 {ratio} Normal <5.10 [facility] Comment on above: Order Comment: Abundio ross Type: BLOOD SPECIMEN Ordering Facility[facility] Address: [address] [place] [address] Performed By: #### 2 4323-8, 62826-6, 6-3 #### [facility] CLIA [id number] [address] [place] [address] [facility] OF [facility] FASTING TIME 12 hrs Normal [facility] Comment on above: Order Comment: Abundio ross Type: BLOOD SPECIMEN Ordering Facility[facility] Address: [address] [place] [address] Performed By: #### 2 4323-8, 16988-4, 3016-3 #### [facility] CLIA [id number] [address] [place] [address] [facility] Triglyceride [Mass/Vol] 155 mg/dL High <150 [facility] Comment on above: Order Comment: Abundio men Type: BLOOD SPECIMEN Ordering Facility: [facility] Address: [address] [place] [address] Result Comment: <150 mg/dL, Normal 150-199 mg/dL, Borderline high 200-499 mg/dL, High >499 mg/dL, Very high Performed By: #### 2 4323-8, 65283-8, 3016-3 #### [facility] CLIA [id number] [address] [place] [address] [facility] [place] TOX SCREEN ROUT URon 024 Amphetamines Confirm (U) [Mass/Vol] Negative Normal Negative [facility] Comment on above: Order Comment: Speci men Type: URINE SPECIMEN Ordering Facility[facility] Address: [address] [place] [address] Result Comment: Cuto ff threshold at 1000 ng/mL. Performed By: #### U TOX2 #### [facility] CLIA [id number] [address] [place] [address] [place] BARBITURATES, URINE Negative Normal Negative [facility] Comment on above: Order Comment: Speci men Type: URINE SPECIMEN [facility]ing Facility[facility] Address: [address] [place] [address] Result Comment: Cuto ff threshold at 200 ng/mL. Performed By: #### U TOX2 #### [facility] CLIA [id number] 14 [place] [address] [place] BENZODIAZEPINES, UR Negative Normal Negative [facility] Comment on above: Order Comment: Speci men Type: URINE SPECIMEN Ordering Facility: [facility] Address: [address] [place] [address] Result Comment: Cuto ff threshold at 200 ng/mL. Performed By: #### U TOX2 #### [facility] CLIA [id number] [address] [place] [address] [place] Cannabinoids Screen Ql (U) Negative Normal Negative [facility] Comment on above: Order Comment: Speci men Type: URINE SPECIMEN Ordering Facility: [facility] Address: [address] [place] [address] Result Comment: Cuto ff threshold at 50 ng/mL. Performed By: #### U TOX2 #### [facility] CLIA [id number] [address] [place] [address] [place] Cocaine Ql (U) Negative Normal Negative [facility] Comment on above: Order Comment: Speci men Type: URINE SPECIMEN Ordering Facility: [facility] Address: [address] [place] [address] Result Comment: Cuto ff threshold at 300 ng/mL. Performed By: #### U TOX2 #### [facility] CLIA [id number] [address] [place] [address] [place] Ethanol (U) [Mass/Vol] <11 Normal <11 [facility] Comment on above: Order Comment: Speci men Type: URINE SPECIMEN Ordering Facility: [facility] Address: [address] [place] [address] Performed By: #### U TOX2 #### [facility] CLIA [id number] [address] [place] [id number] [facility] Opiates Screen Ql (U) Negative Normal Negative [facility] Comment on above: Order Comment: Speci men Type: URINE SPECIMEN Ordering Facility: [facility] Address: [address] [place] [address] Result Comment: Cuto ff threshold at 300 ng/mL. Performed By: #### U TOX2 #### [facility] CLIA [id number] [address] [place] [id number] [facility] oxyCODONE cutoff Screen (U) [Mass/Vol] Negative Normal Negative [facility] Comment on above: Order Comment: Speci men Type: URINE SPECIMEN Ordering Facility: [facility] Address: [address] [place] [address] Result Comment: Cuto ff threshold at 100 ng/mL. Performed By: #### U TOX2 #### [facility] CLIA [id number] [address] [place] [address] [facility] Phencyclidine Ql (U) Negative Normal Negative [facility] Comment on above: Order Comment: Speci men Type: URINE SPECIMEN Ordering Facility: [facility] Address: [address] [place] [address] Result Comment: Cuto ff threshold at 25 ng/mL. Performed By: #### U TOX2 #### [facility] CLIA [id number] [address] [place] [id number] [place] TSH BLDon 02-24-2024 TSH Qn 1.580 m[IU]/L 0.270 - 4.200 mIU/L [facility] TSH SerPl-aCncon 06-20-2023 TSH Qn 1.580 m[IU]/L Normal 0.270-4.200 [facility] Comment on above: Order Comment: Speci men Type: BLOOD SPECIMEN Ordering Facility: [facility] Address: [address], [place] [address] Result Comment: If t he patient is , TSH reference range varies by gestational period: First Trimester (weeks 9-12): 0.180-2.990 mIU/L Second Trimester: 0.110-3.980 mIU/L Third Trimester: 0.480-4.710 mIU/L Camilo Augustine et al. A Practical Approach for the Verifications and Determination of Site- and Trimester-Specific Reference Intervals for Thyroid Function tests in . Thyroid, 2019:29:3:412-420. Hawk Cook, et al. 2017 Guidelines of the [place] Thyroid Association for the Diagnosis and Management of Thyroid Disease during and the . Thyroid, 2017:27:3:315-389. 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 Would like placed so she can complete on Thursday. Once placed just let Angel know. Please advise. JESÚS Sosa Kimberly C, DO 06/18/2023 12:18 PM Signed Tests ordered in her office visit note DO Maykel Newell Janie, MA 06/18/2023 1:32 PM Signed Patient's dad Angel on HIPAA informed orders placed. 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 - estradiol (E2) emollient cream 0.2 mg/gram (CPD) Use 0.5 g vaginally three times a week. - amitriptyline (ELAVIL) 25 mg tablet Take 1 tablet by mouth daily at bedtime. - clobetasol (TEMOVATE) 0.05 % ointment Apply to vulva 1-2 times/week Problem List As Of Date 06/18/2023 Noted Resolved Obesity, Class II, BMI 35-39.9 [E66.9] 06/16/2023 Vaginismus [N94.2] 06/16/2023 Anxiety with depression [F41.8] 06/16/2023 Encounter Status:Closed by АННА LÓPEZ on 06/18/23 [facility] DANAYon 06-16-2023 CNOV Office Visit (ARMANDO SCHMID) EVELINA SAM ([id number]) 89 F Date Time Provider Department 06/16/23 8:20 AM АННА LÓPEZ During your visit today, we recorded the following information about you: Temperature Pulse Respiration Blood pressure 97.4 degrees 67/minute 16/minute 108/70 Weight Height 122 kg 1.803 m Анна López, DO 06/23/2023 5:23 PM Signed SUBJECTIVE: 22 year old female is here with her mother to establish. I have fully reviewed the past medical, surgical, social and family history and updated the Histories section of [facility]. She has been struggling with anxiety and depression since she was a teenager. She had covid this past year and the isolation brought out her depression She has never seen a counselor for this. She has coping skills, and avoids her triggers She is in her last year of college, and is anxious about the life changes that she is anticipating. She is taking amitriptyline for nerve pain She has trouble falling asleep, but does not have trouble staying asleep She saw an FABRIC WORKER SUPERVISOR, uses clobetasol and takes amitriptyline for vaginal irritation and nerve pain She will go to a pelvic sewing machine operator floorperson. 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 ALLERGIES Allergen Reactions Cephalosporins Hives Current Outpatient Medications Medication Sig Dispense Refill multivitamin tablet Take 1 tablet by mouth once daily. clobetasol (TEMOVATE) 0.05 % ointment Apply to vulva 1-2 times/week 45 g 0 amitriptyline (ELAVIL) 10 mg tablet Take 1 tablet by mouth daily at bedtime. 90 tablet 3 amitriptyline (ELAVIL) 10 mg tablet Take 1 tablet (10 mg) by mouth once daily at bedtime. (Patient not taking: Reported on 06/16/2023) 30 tablet 11 No current facility-administered medications for this visit. ACTIVE PROBLEM LIST Obesity, Class II, Bmi 35-39.9 Social History Tobacco Use Smoking status: Never Smokeless tobacco: Never Vaping Use Vaping Use: Never used Substance Use Topics Alcohol use: Yes Comment: socially Drug use: Never Family History Problem Relation Age of Onset Diabetes Mother Hypertension Mother Hypertension Father Hyperlipidemia Father other (hypertrophic cardiomyopathy) Father other (other) Brother Melanoma Maternal Grandmother Hypertension Maternal Grandmother Melanoma Maternal Grandfather Hypertension Maternal Grandfather Hypertension Paternal Grandmother Diabetes Paternal Grandmother Hypertension Paternal Grandfather Melanoma Maternal Aunt Reviewed past medical history, family history and surgeries. All medications and supplements were reviewed with the patient. REVIEW OF SYSTEMS PAIN ASSESSMENT: Negative for pain, history of chronic pain, or current treatment for a chronic pain condition. GENERAL: No weight loss, malaise or fevers HEENT: Negative for frequent or significant headaches, No changes in hearing or vision, no nose bleeds or other nasal problems NECK: Negative for lumps, goiter, pain and significant neck swelling RESPIRATORY: Negative for cough, hemoptysis, wheezing, COPD, dyspnea or shortness of breath CARDIOVASCULAR: Negative for chest pain, leg swelling, hypertension, CHF or palpitations GI: No nausea, vomiting, or diarrhea : Positive for vaginal irritation MUSCULOSKELETAL: Negative for joint pain or swelling, back pain or muscle pain SKIN: Negative for lesions, rash, and itching PSYCH: positive for depression, anxiety and insomnia HEMATOLOGY/LYMPHOLOGY: Negative for prolonged bleeding, bruising easily or swollen nodes ENDOCRINE: Negative for cold or heat intolerance, polyuria, polydipsia and goiter NEURO: No history of headaches, syncope, paralysis, seizures or tremors PHYSICAL EXAMINATION: BP 108/70 Pulse 67 Temp 36.3 ?C (97.4 ?F) Resp 16 Ht 180.3 cm (5' 11) Wt 122 kg (269 lb) SpO2 98% BMI 37.52 kg/m? General appearance: Well appearing, alert, in no acute distress, well-hydrated, obese. Skin: Skin color, texture, turgor normal, no suspicious rashes or lesions Head: Normocephalic, no masses, lesions, tenderness or abnormalities Eyes: Anicteric sclera. Pupils are equally round and reactive to light. Extraocular movements are intact. Ears: External ears normal, canals clear Nose/Sinuses: Nares normal, septum midline, mucosa normal, no drainage or sinus tenderness Oropharynx: Lips, mucosa, and tongue normal, teeth and gums normal, oropharynx normal Neck: Supple, no adenopathy; thyroid symmetric, normal size, no bruits Back: Normal exam Lungs: Lungs clear to auscultation. No wheezing, rhonchi, rales. Heart: RRR without murmur, gallop, or rubs. No ectopy Abdomen: Normal abdominal exam, Abdomen soft, non-tender. Bowel adalberto (more content not included)... 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) Orders Changed: From Clobetasol Propionate 0.05 % External Ointment Apply to affected area at bedtime for 2 weeks, then 2-3 times a week To Clobetasol Propionate 0.05 % External Ointment Apply small amount to the vulva 2-3 times/week Renew: Amitriptyline HCl - 10 MG Oral Tablet; TAKE 1 TABLET AT BEDTIME Provider Impressions LS: continue with clobetasol 2-3 times/week vulvodynia: continue with compounded estradiol + testosterone 2-3 times/week and continue with 10mg po amitriptyline at HS f/u one year d/t changing insurance; pt asked to call with any flare up of symptoms or AUB Chief Complaint Patient here for follow up for on medication Curator Of Manuscripts declined Teri Collins CMA History of Present Illnessh/o LS and vulvodynia h/o PCOS and has a prescription for progesterone if amenorrheic for 3 months current regiment clobetasol and estradiol + testosterone alternating between the 2 QOD vaginal hygiene: water only with hand held shower piece no pain with application of creams/ointment amitriptyline 10mg at HS menses every 5-6 weeks no contraception 5-7 days of VB and no dysmenorrhea cramping and VB less after stopping the MEENU Review of Systems Constitutional: no fever, no chills, no recent weight gain, no recent weight loss and no fatigue. Eyes: no eye pain, no vision problems and no dryness of the eyes. ENT: no hearing loss, no nosebleeds and no sinus congestion. Cardiovascular: no chest pain, no palpitations and no orthopnea. Respiratory: no shortness of breath, no cough and no wheezing. Gastrointestinal: no abdominal pain, no constipation, no nausea, no diarrhea and no vomiting. Genitourinary: no dysuria, no urinary incontinence, no vaginal dryness, no vaginal itching, no dyspareunia, no pelvic pain, no dysmenorrhea, no sexual problems, no change in urinary frequency, no vaginal discharge, no unexplained vaginal bleeding and no lesion/sore. Musculoskeletal: no back pain, no joint swelling and no leg edema. Integumentary: no rashes, no skin lesions, no nipple discharge, no breast pain and no breast lump. Neurological: no headache, no numbness and no dizziness. Psychiatric: no sleep disturbances, no anxiety and no depression. Endocrine: no hot flashes, no loss of hair and no hirsutism. Hematologic/Lymphatic: no swollen glands, no tendency for easy bleeding and no tendency for easy bruising. All other systems have been reviewed and are negative for complaint. 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) Past Medical History Problems History of Menstruation Onset age 11 years Surgical History Problems History of Knee arthroscopy right History of Myringotomy Family History Mother Family history of hypertension (V17.49) (Z82.49) Family history of type 2 diabetes mellitus (V18.0) (Z83.3) Father Family history of cardiomyopathy (V17.49) (Z82.49) Family history of hypertension (V17.49) (Z82.49) Family history of Irregular heart beat Maternal Grandmother Family history of hypertension (V17.49) (Z82.49) Maternal Grandfather Family history of cardiac disorder (V17.49) (Z82.49) Family history of hypercholesterolemia (V18.19) (Z83.42) Family history of hypertension (V17.49) (Z82.49) Paternal Grandfather Family history of cardiac disorder (V17.49) (Z82.49) Social History Problems Never a smoker No advance directives (V49.89) (Z78.9) No alcohol use No illicit drug use No recent foreign travel Denied: History of Non-smoker Not currently sexually active Allergies Medication Cephalosporins Hives;; Recorded By: Collette Varela; 07/26/2019 9:17:07 AM NonMedication Pollen Sneezing; Recorded By: Collette Varela; 07/26/2019 9:17:07 AM Current Meds Medication NameInstruction Amitriptyline HCl - 10 MG Oral TabletTAKE 1 TABLET AT BEDTIME. Clobetasol Propionate 0.05 % External OintmentApply to affected area at bedtime for 2 weeks, then 2-3 times a week. Compound DrugEstradiol 0.03% with 0.1% Testosterone ointment in a verabase. Pt to apply 0.5 ml to vestibule three time a week. 45 ml with one refill metFORMIN HCl ER 500 MG Oral Tablet Extended Release 24 HourTake 1 tablet twice daily Mupirocin 2 % External Ointment Progesterone 200 MG Oral CapsuleTAKE 1 CAPSULE Bedtime for the first 14 days of the month Vitals Vital Signs Recorded: 07Apr2022 04:10PM [id number] [id number] Height5 ft 10 in Ghtort284 lb 1 oz BMI C (more content not included)... 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) Lichen sclerosus (701.0) (L90.0) Orders Changed: From Clobetasol Propionate 0.05 % External Ointment apply sparingly to affected area QHS x 30 days, then every other night x 30 days, then twice weekly x 30days To Clobetasol Propionate 0.05 % External Ointment Apply to affected area at bedtime for 2 weeks, then 2-3 times a week Stop: Estradiol 0.1 MG/GM Vaginal Cream Changed: From Amitriptyline HCl - 10 MG Oral Tablet take 1 tablet by mouth at bedtime MAY INCREASE DOSE BY 10 MG EVERY 5 DAYS WITH MAXIMUM DOSE OF 50 MG at bedtime To Amitriptyline HCl - 10 MG Oral Tablet TAKE 1 TABLET AT BEDTIME Provider Impressions LS: clobetasol prescription renewed vulvodynia: amitriptyline and compounded estradiol with testosterone renewed f/u 6 months or PRN Chief Complaint F/U for: vulvodynia AND LS Curator Of Manuscripts declined, DOUGLAS Farmer History of Present Illnessh/o LS and vulvodynia current treatment: compounded estradiol wilth testosterone 3 times/week clobetasol 2-3 times/week 10mg amitriptyline at HS MEENU discontinued 04/2021 h/o PCOS working with endocrinology currently has prescription for progesterone if she is amenorrheic for 3 months LMP 08/22, 07/10 leave for camp at the end of the month for the next 10 weeks no pain with application of creams, ointment no AE overall happy with results Review of Systems Constitutional: no fever, no chills, no recent weight gain, no recent weight loss and no fatigue. Eyes: no eye pain, no vision problems and no dryness of the eyes. ENT: no hearing loss, no nosebleeds and no sinus congestion. Cardiovascular: no chest pain, no palpitations and no orthopnea. Respiratory: no shortness of breath, no cough and no wheezing. Gastrointestinal: no abdominal pain, no constipation, no nausea, no diarrhea and no vomiting. Genitourinary: no dysuria, no urinary incontinence, no vaginal dryness, no vaginal itching, no dyspareunia, no pelvic pain, no dysmenorrhea, no sexual problems, no change in urinary frequency, no vaginal discharge, no unexplained vaginal bleeding and no lesion/sore. Musculoskeletal: no back pain, no joint swelling and no leg edema. Integumentary: no rashes, no skin lesions, no nipple discharge, no breast pain and no breast lump. Neurological: no headache, no numbness and no dizziness. Psychiatric: no sleep disturbances, no anxiety and no depression. Endocrine: no hot flashes, no loss of hair and no hirsutism. Hematologic/Lymphatic: no swollen glands, no tendency for easy bleeding and no tendency for easy bruising. All other systems have been reviewed and are negative for complaint. 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) Past Medical History Problems History of Menstruation Onset age 11 years Surgical History Problems History of Knee arthroscopy right History of Myringotomy Family History Mother Family history of hypertension (V17.49) (Z82.49) Family history of type 2 diabetes mellitus (V18.0) (Z83.3) Father Family history of cardiomyopathy (V17.49) (Z82.49) Family history of hypertension (V17.49) (Z82.49) Family history of Irregular heart beat Maternal Grandmother Family history of hypertension (V17.49) (Z82.49) Maternal Grandfather Family history of cardiac disorder (V17.49) (Z82.49) Family history of hypercholesterolemia (V18.19) (Z83.42) Family history of hypertension (V17.49) (Z82.49) Paternal Grandfather Family history of cardiac disorder (V17.49) (Z82.49) Social History Problems Never a smoker No advance directives (V49.89) (Z78.9) No alcohol use No illicit drug use No recent foreign travel Denied: History of Non-smoker Not currently sexually active Allergies Medication Cephalosporins Hives;; Recorded By: Collette Varela; 07/26/2019 9:17:07 AM NonMedication Pollen Sneezing; Recorded By: Collette Varela; 07/26/2019 9:17:07 AM Current Meds Medication NameInstruction Amitriptyline HCl - 10 MG Oral Tablettake 1 tablet by mouth at bedtime MAY INCREASE DOSE BY 10 MG EVERY 5 DAYS WITH MAXIMUM DOSE OF 50 MG at bedtime Clobetasol Propionate 0.05 % External Ointmentapply sparingly to affected area QHS x 30 days, then every other night x 30 days, then twice weekly x 30days Estradiol 0.1 MG/GM Vaginal Creampatient to apply pea sized amount of estrace to vulvovaginal area daily for the next 12 weeks metFORMIN HCl ER 500 MG Oral Tablet Extended Release 24 HourTake 1 tablet twice daily Mupi (more content not included)... Normal [facility] Tobacco Screening.on 022 Fall risk assessment a) No falls within the last year PA-CUYNQ-Pehh [place] [address] Work Phone: Last menstrual period start date 22Aug2021 MH-EDDQX-Swuk [place] [address] Work Phone: Tobacco use status [facility] b) No HL-MALSK-Yphe [place] [address] Work Phone: COMPREHENSIVE PANELon 2021 Albumin [Mass/Vol] 4.3 g/dL Normal 3.4 - 5.0 [facility] Comment on above: Performed By: #### C MP #### [facility] [address] [place] [address] ALP [Catalytic activity/Vol] 64 U/L Normal 33 - 110 [facility] Comment on above: Performed By: #### C MP #### [facility] [address] [place] [address] ALT [Catalytic activity/Vol] 23 U/L Normal 7 - 45 [facility] Comment on above: Result Comment: Almita ents treated with Sulfasalazine may generate falsely decreased results for ALT. Performed By: #### C MP #### [facility] [address] [place] [address] Anion gap [Moles/Vol] 15 mmol/L Normal 10 - 20 [facility] Comment on above: Performed By: #### C MP #### [facility] [address] [place] [address] AST [Catalytic activity/Vol] 19 U/L Normal 9 - 39 [facility] Comment on above: Performed By: #### C MP #### [facility] [address] [place] [address] Bilirubin [Mass/Vol] 1.4 mg/dL High 0.0 - 1.2 [facility] Comment on above: Performed By: #### C MP #### [facility] [address] [place] [address] Calcium [Mass/Vol] 9.5 mg/dL Normal 8.6 - 10.6 [facility] Comment on above: Performed By: #### C MP #### [facility] [address] [place] [address] Chloride [Moles/Vol] 104 mmol/L Normal 98 - 107 [facility] Comment on above: Performed By: #### C MP #### [facility] [address] [place] [address] Creatinine [Mass/Vol] 0.67 mg/dL Normal 0.50 - 1.05 [facility] Comment on above: Performed By: #### C MP #### [facility] [address] [place] [address] eGFR FEMALE >90 Normal >90 [facility] Comment on above: Result Comment: CALC ULATIONS OF ESTIMATED GFR ARE PERFORMED USING THE 2020 CKD-EPI STUDY REFIT EQUATION WITHOUT THE RACE VARIABLE FOR THE IDMS-TRACEABLE CREATININE METHODS. https://jasn.asnjournals.org/content//ASN.2062713411 Performed By: #### C MP #### [facility] [address] [place] [address] Glucose [Mass/Vol] 74 mg/dL Normal 74 - 99 [facility] Comment on above: Performed By: #### C MP #### [facility] [address] [place] [address] HCO3 (Bld) [Moles/Vol] 26 mmol/L Normal 21 - 32 [facility] Comment on above: Performed By: #### C MP #### [facility] [address] [place] [address] Potassium [Moles/Vol] 4.5 mmol/L Normal 3.5 - 5.3 [facility] Comment on above: Performed By: #### C MP #### [facility] [address] [place] [address] Protein [Mass/Vol] 6.9 g/dL Normal 6.4 - 8.2 [facility] Comment on above: Performed By: #### C MP #### [facility] [address] [place] [address] Sodium [Moles/Vol] 140 mmol/L Normal 136 - 145 [facility] Comment on above: Performed By: #### C MP #### [facility] [address] [place] [address] Urea nitrogen [Mass/Vol] 13 mg/dL Normal 6 - 23 [facility] Comment on above: Performed By: #### C MP #### [facility] [address] [place] [address] Laboratory - Chemistry and C hemistry - challengeon 07-09-2021 Albumin BCP dye [Mass/Vol] 4.3 g/dL 3.4 - 5.0 -[facility] Work Phone: ALP [Catalytic activity/Vol] 64 U/L 33 - 110 -[facility] 100 DO Work Phone: ALT With P-5'-P [Catalytic activity/Vol] 23 U/L 7 - 45 -[facility] 100 DO Work Phone: Comment on above: Patients treated wit h Sulfasalazine may generate falsely decreased results for ALT. Anion gap [Moles/Vol] 15 mmol/L 10 - 20 -[facility] 100 DO Work Phone: AST With P-5'-P [Catalytic activity/Vol] 19 U/L 9 - 39 -[facility] 100 DO Work Phone: Bilirubin [Mass/Vol] 1.4 mg/dL above high threshold 0.0 - 1.2 [facility] 100 DO Work Phone: Calcium [Mass/Vol] 9.5 mg/dL 8.6 - 10.6 [facility] DO Work Phone: Chloride [Moles/Vol] 104 mmol/L 98 - 107 [facility] 100 DO Work Phone: CO2 [Moles/Vol] 26 mmol/L 21 - 32 [facility] 100 DO Work Phone: Creatinine [Mass/Vol] 0.67 mg/dL See Below -[facility] 100 DO Work Phone: Comment on above: Reference Range: 0.5 0 - 1.05 Glucose [Mass/Vol] 74 mg/dL 74 - 99 [facility] 100 DO Work Phone: Potassium [Moles/Vol] 4.5 mmol/L 3.5 - 5.3 [facility] 100 DO Work Phone: Protein [Mass/Vol] 6.9 g/dL 6.4 - 8.2 [facility] 100 DO Work Phone: Sodium [Moles/Vol] 140 mmol/L 136 - 145 [facility] 100 DO Work Phone: Urea nitrogen [Mass/Vol] 13 mg/dL 6 - 23 [facility] 100 DO Work Phone: No Panel Informationon 07-09 >90 >90 [facility] 100 DO Work Phone: Comment on above: CALCULATIONS OF ALENA MATED GFR ARE PERFORMED USING THE 2020 CKD-EPI STUDY REFIT EQUATION WITHOUT THE RACE VARIABLE FOR THE IDMS-TRACEABLE CREATININE METHODS.https://jasn.asnjournals.org/content/early//ASN.20 39269759 Office Visiton 07-09-2021 Follow-up visit Diagnoses/Problems PCOS (polycystic ovarian syndrome) (256.4) (E28.2) Orders PCOS (polycystic ovarian syndrome) Renew: metFORMIN HCl ER 500 MG Oral Tablet Extended Release 24 Hour; Take 1 tablet twice daily Comprehensive Metabolic Panel; Status:Active; Requested for:09Jul2021; Patient Discussion/Summary continue metformin for now follow up in 6 months call with concerns Provider Impressions 20-year-old here for f/u PCOS. We discussed her course in detail. Reviewed labs that were unremarkable. No change to metformin. Work on exercise. f/u 6 months. Chief Complaint patient is here for a follow up to PCOS--cmb History of Present Pbbanee40-tqwv-foy here for f/u PCOS. Since last visit doing fine on metformin as far as tolerance but still struggling with weight. Followed low carb plan for several months but had minimal exercise....down 4 lbs. Hopes for beter results when busier this summer. She denies any chest pain, shortness of breath, nausea, vomiting, diarrhea, constipation, fevers, or chills Review of Systems Comprehensive review of systems otherwise negative. 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) Past Medical History History of Menstruation Onset age 11 years Surgical History History of Knee arthroscopy right History of Myringotomy Social History Never a smoker No advance directives (V49.89) (Z78.9) No alcohol use No illicit drug use No recent foreign travel Denied: History of Non-smoker Not currently sexually active Allergies Cephalosporins Hives;; Recorded By: Collette Varela; 07/26/2019 9:17:07 AM Pollen Sneezing; Recorded By: Collette Varela; 07/26/2019 9:17:07 AM Current Meds Medication NameInstruction Amitriptyline HCl - 10 MG Oral Tablettake 1 tablet by mouth at bedtime MAY INCREASE DOSE BY 10 MG EVERY 5 DAYS WITH MAXIMUM DOSE OF 50 MG at bedtime Clobetasol Propionate 0.05 % External Ointmentapply sparingly to affected area QHS x 30 days, then every other night x 30 days, then twice weekly x 30days Estradiol 0.1 MG/GM Vaginal Creampatient to apply pea sized amount of estrace to vulvovaginal area daily for the next 12 weeks metFORMIN HCl ER 500 MG Oral Tablet Extended Release 24 HourTake 1 tablet twice daily Mupirocin 2 % External Ointment Progesterone 200 MG Oral CapsuleTAKE 1 CAPSULE Bedtime for the first 14 days of the month Vitals Vital Signs Recorded: 09Jul2021 12:39PM Tyndroiveby49.2 F Heart Rate76 Gyargrvfmgp94 Mcihoxcv725 Zrmccatqr95 Height5 ft 10.5 in Shvpss740 lb 3.2 oz BMI Scyjkhiccw13.81 kg/m2 BSA Calculated2.35 Physical Exam CONSTITUTIONAL: Obese female in no acute distress HEENT: Moist mucus membranes, Eyes: no proptosis, no lid lag, no lid retraction NECK: Normal thyroid gland. No cervical lymphadenopathy CHEST: Clear to auscultation bilaterally HEART: Regular rate and rhythm. 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 will decrease application to 5 days/week PCOS and AUB: pt asked to take the oral progesterone only if she is amenorrheic for 3 months f/u 08/2021 or sooner if symptoms exacerbate Chief Complaint F/U for: vulvodynia Curator Of Manuscripts declined, Ryan Herrera CMAII History of Present Illness2 month f/u ago amitriptyline, taking progesterone instead of MEENU F/u for 14 days progesterone: feels extreme fatigue and drugged intermittently with amitriptyline. Feels like can't walk straight, but unknown pattern. Has to take at 8:30pm, any time later will feel groggy and dizzy in morning. 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 Eyes: no eye pain, no vision problems and no dryness of the eyes. ENT: no hearing loss, no nosebleeds and no sinus congestion. Cardiovascular: no chest pain, no palpitations and no orthopnea. Respiratory: no shortness of breath, no cough and no wheezing. Gastrointestinal: no abdominal pain, no constipation, no nausea, no diarrhea and no vomiting. Genitourinary: no dysuria, no urinary incontinence, no vaginal dryness, no vaginal itching, no dyspareunia, no pelvic pain, no dysmenorrhea, no sexual problems, no change in urinary frequency, no vaginal discharge, no unexplained vaginal bleeding and no lesion/sore. Musculoskeletal: no back pain, no joint swelling and no leg edema. Integumentary: no rashes, no skin lesions, no nipple discharge, no breast pain and no breast lump. Neurological: no headache, no numbness and no dizziness. Psychiatric: no sleep disturbances, no anxiety and no depression. Endocrine: no hot flashes, no loss of hair and no hirsutism. Hematologic/Lymphatic: no swollen glands, no tendency for easy bleeding and no tendency for easy bruising. All other systems have been reviewed and are negative for complaint. 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) Past Medical History Problems History of Menstruation Onset age 11 years Surgical History Problems History of Knee arthroscopy right History of Myringotomy Family History Mother Family history of hypertension (V17.49) (Z82.49) Family history of type 2 diabetes mellitus (V18.0) (Z83.3) Father Family history of cardiomyopathy (V17.49) (Z82.49) Family history of hypertension (V17.49) (Z82.49) Family history of Irregular heart beat Maternal Grandmother Family history of hypertension (V17.49) (Z82.49) Maternal Grandfather Family history of cardiac disorder (V17.49) (Z82.49) Family history of hypercholesterolemia (V18.19) (Z83.42) Family history of hypertension (V17.49) (Z82.49) Paternal Grandfather Family history of cardiac disorder (V17.49) (Z82.49) Social History Problems Never a smoker No advance directives (V49.89) (Z78.9) No alcohol use No illicit drug use No recent foreign travel Denied: History of Non-smoker Not currently sexually active Allergies Medication Cephalosporins Hives;; Recorded By: Collette Varela; 07/26/2019 9:17:07 AM NonMedication Pollen Sneezing; Recorded By: Collette Varela; 07/26/2019 9:17:07 AM Current Meds Medication NameInstruction Amitriptyline HCl - 10 MG Oral Tablettake 1 tablet by mouth at bedtime MAY INCREASE DOSE BY 10 MG EVERY 5 DAYS WITH MAXIMUM DOSE OF 50 MG at bedtime Clobetasol Propionate 0.05 % External Ointmentapply sparingly to affected area QHS x 30 days, then every other night x 30 days, then twice weekly x 30days Estradiol 0.1 MG/GM Vaginal Creampatient to apply pea sized amount of estrace to vulvovaginal area daily for the next 12 weeks metFORMIN HCl ER 500 MG Oral Tablet Extended Release 24 HourTake 1 tablet twice daily Mupirocin 2 % External Ointment Progesterone 200 MG Oral CapsuleTAKE 1 CAPSULE Bedtime for the first 14 days of the month Vitals Vital Signs Recorded: Fe (more content not included)... Normal [place] Tobacco Screening.on 022 Fall risk assessment a) No falls within the last year [facility] 300 Work Phone: Tobacco use status CPHS b) No IP-EQFPB-Berv [employer] 300 Work Phone: TESTOST,FREE AND TOTALon TESTOSTERONE TOT.LC/MS/MS 27 ng/dL Normal 2-45 [facility] Comment on above: Result Comment: For additional information, please refer to http://education.Well/faq/ PeobpJcczavilagcyCQJCTMCRU911 (This link is being provided for informational/ educational purposes only.) This test was developed and its analytical performance characteristics have been determined by [place] It has not been cleared or approved by the U.S. Food and Drug Administration. This assay has been validated pursuant to the CLIA regulations and is used for clinical purposes. Performed By: #### T ESFT #### [facility] [place] [id number] [place], [place] TESTOSTERONE,FREE 2.3 pg/mL Normal 0.1-6.4 [facility] Comment on above: Result Comment: This test was developed and its analytical performance characteristics have been determined by [employer] [place], [place]. It has not been cleared or approved by the U.S. Food and Drug Administration. This assay has been validated pursuant to the CLIA regulations and is used for clinical purposes. Performed By: #### T ESFT #### [facility] [address] 17-HYDROXYPROGESTERONEon 17-HYDROXYPROGEST ERONE 18 ng/dL Normal [facility] Comment on above: Result Comment: Unable to flag abnormal result(s), please refer to reference range(s) below: Adult Female Reference Ranges for 17-Hydroxyprogesterone: Pre-Menopausal Mid Follicular: 23 - 102 ng/dL Pre-Menopausal Surge: 67 - 349 ng/dL Pre-Menopausal Mid Luteal: 139 - 431 ng/dL Postmenopausal Phase: < or = 45 ng/dL Female Joss Stages: II - III Females: 18 - 220 ng/dL IV - V Females: 36 - 200 ng/dL Includes data from J Clin Endocrinol Metab. 1991;73:674-686; J Clin Endocrinol Metab. 1989;69;8091-1894; J Clin Endocrinol Metab. 1994;78:226-270. Pediatr Res 1988;23:525-529. MedLinePlus (accessed 10/10/13). This test was developed and its analytical performance characteristics have been determined by [employer] [place], [place]. It has not been cleared or approved by the U.S. Food and Drug Administration. This assay has been validated pursuant to the CLIA regulations and is used for clinical purposes. Performed By: #### 1 7OHP #### [facility] [address] [place], [place] COMPREHENSIVE PANELon 2020 Albumin [Mass/Vol] 4.0 g/dL Normal 3.4 - 5.0 [facility] Comment on above: Performed By: #### C MP #### [facility] [address] [place] [address] ALP [Catalytic activity/Vol] 64 U/L Normal 33 - 110 [facility] Comment on above: Performed By: #### C MP #### [facility] [address] [place] [address] ALT [Catalytic activity/Vol] 15 U/L Normal 7 - 45 [facility] Comment on above: Result Comment: Almita ents treated with Sulfasalazine may generate falsely decreased results for ALT. Performed By: #### C MP #### [facility] [address] [place] [address] Anion gap [Moles/Vol] 12 mmol/L Normal 10 - 20 [facility] Comment on above: Performed By: #### C MP #### [facility] [address] [place] [address] AST [Catalytic activity/Vol] 17 U/L Normal 9 - 39 [facility] Comment on above: Performed By: #### C MP #### [facility] [address] [place] [address] Bilirubin [Mass/Vol] 1.1 mg/dL Normal 0.0 - 1.2 [facility] Comment on above: Performed By: #### C MP #### [facility] [address] [place] [address] Calcium [Mass/Vol] 9.3 mg/dL Normal 8.6 - 10.6 [facility] Comment on above: Performed By: #### C MP #### [facility] [address] [place] [address] Chloride [Moles/Vol] 106 mmol/L Normal 98 - 107 [facility] Comment on above: Performed By: #### C MP #### [facility] [address] [place] [address] Creatinine [Mass/Vol] 0.72 mg/dL Normal 0.50 - 1.05 [facility] Comment on above: Performed By: #### C MP #### [facility] [address] [place] [address] GFR- AM. >60 Normal >60 [facility] Comment on above: Result Comment: CALC ULATIONS OF ESTIMATED GFR ARE PERFORMED USING THE MDRD STUDY EQUATION FOR THE IDMS-TRACEABLE CREATININE METHODS. CLIN CHEM 2007;53:766-72 Performed By: #### C MP #### [facility] [address] [place] [address] GFR-NON AM. >60 Normal >60 [facility] Comment on above: Performed By: #### C MP #### [facility] [address] [place] [address] Glucose [Mass/Vol] 87 mg/dL Normal 74 - 99 [facility] Comment on above: Performed By: #### C MP #### [facility] [address] [place] [address] HCO3 (Bld) [Moles/Vol] 28 mmol/L Normal 21 - 32 [facility] Comment on above: Performed By: #### C MP #### [facility] [address] [place] [address] Potassium [Moles/Vol] 4.6 mmol/L Normal 3.5 - 5.3 [facility] Comment on above: Performed By: #### C MP #### [facility] [address] [place] [address] Protein [Mass/Vol] 7.1 g/dL Normal 6.4 - 8.2 [facility] Comment on above: Performed By: #### C MP #### [facility] [address] [place] [address] Sodium [Moles/Vol] 141 mmol/L Normal 136 - 145 [facility] Comment on above: Performed By: #### C MP #### [facility] [address] [place] [address] Urea nitrogen [Mass/Vol] 11 mg/dL Normal 6 - 23 [facility] Comment on above: Performed By: #### C MP #### [facility] [address] [place] [address] DHEA SULFATEon 04-09-2021 DHEA SULFATE 109 ug/dL Normal 65 - 395 [facility] Comment on above: Result Comment: [facility]-BASED REFERENCE RANGES: PUBERTAL (JOSS) STAGE MALE FEMALE I 5 - 265 5 - 125 II 15 - 380 15 - 150 III 60 - 505 20 - 535 IV 65 - 560 35 - 485 V 165 - 500 75 - 530 Biotin interference may cause falsely elevated results. Patients taking a Biotin dose of up to 5 mg/day should refrain from taking Biotin for 24 hours before sample collection. Providers may contact their local laboratory for further information. Performed By: #### D HEAS #### [facility] [address] [place] [address] HEMOGLOBIN A1Con 04-09-2021 Glucose [Mass/Vol] 108 mg/dL Normal [facility] Comment on above: Performed By: #### H BA1E #### [facility] [address] [place] [address] HbA1c (Bld) [Mass fraction] 5.4 % Normal [facility] Comment on above: Result Comment: Diag nosis of Diabetes-Adults Non-Diabetic: < or = 5.6% Increased risk for developing diabetes: 5.7-6.4% Diagnostic of diabetes: > or = 6.5% . Monitoring of Diabetes Age (y) Therapeutic Goal (%) Adults: >18 <7.0 Pediatrics: 13-18 <7.5 7-12 <8.0 0- 6 7.5-8.5 [place] [employer]. Diabetes Care 33(S1), Apr 2009. Performed By: #### H BA1E #### [facility] [address] [place] [address] PROLACTINon 04-09-2021 PROLACTIN 7.2 ug/L Normal 3.0 - 20.0 [facility] Comment on above: Performed By: #### P ROL #### [facility] [address] [place] [address] TSH WITH REFLEX TO FREE T4 I F ABNORMALon 04-09-2021 TSH Qn 1.16 m[IU]/L Normal 0.44 - 3.98 [facility] Comment on above: Result Comment: TSH testing is performed using different testing methodology at [facility] than at other [facility]. Direct result comparisons should only be made within the same method. Performed By: #### T HYDS #### [facility] [address] [place] [address] 17-Hydroxyprogesterone, Seru mon 04-08-2021 17-Hydroxyprogest erone [Mass/Vol] 18 ng/dL [facility] Work Phone: Comment on above: Unable to flag a bnormal result(s), please refer to reference range(s) below: Adult Female Reference Ranges for 17-Hydroxyprogesterone: Pre-Menopausal Mid Follicular: 23 - 102 ng/dL Pre-Menopausal Surge: 67 - 349 ng/dL Pre-Menopausal Mid Luteal: 139 - 431 ng/dL Postmenopausal Phase: < or = 45 ng/dL Female Joss Stages: II - III Females: 18 - 220 ng/dL IV - V Females: 36 - 200 ng/dL Includes data from J Clin Endocrinol Metab. 1991;73:674-686; J Clin Endocrinol Metab. 1989;69;7462-0287; J Clin Endocrinol Metab. 1994;78:226-270. Pediatr Res 1988;23:525-529. MedLinePlus (accessed 10/10/13). This test was developed and its analytical performancecharacteristics have been determined by [facility] [place]. It hasnot been cleared or approved by the U.S. Food and DrugAdministration. This assay has been validated pursuantto the CLIA regulations and is used for clinicalpurposes. DHEA Sulfate, Serumon 2020 DHEA-S [Mass/Vol] 109 ug/dL 65 - 395 [facility] Work Phone: Comment on above: MATURITY-BASED REFER ENCE RANGES: PUBERTAL (JOSS) STAGE MALE FEMALE I 5 - 265 5 - 125 II 15 - 380 15 - 150 III 60 - 505 20 - 535 IV 65 - 560 35 - 485 V 165 - 500 75 - 530 Biotin interference may cause falsely elevated results. Patients taking a Biotin dose of up to 5 mg/day should refrain from taking Biotin for 24 hours before sample collection. Providers may contact their local laboratoryfor further information. Hemoglobin A1Con 04-08-2021 Glucose [Mass/Vol] 108 mg/dL [facility] Work Phone: HbA1c (Bld) [Mass fraction] 5.4 % [facility] Work Phone: Comment on above: Diagnosis of Diabete s-Adults Non-Diabetic: < or = 5.6% Increased risk for developing diabetes: 5.7-6.4% Diagnostic of diabetes: > or = 6.5%. Monitoring of Diabetes Age (y) Therapeutic Goal (%) Adults: >18 <7.0 Pediatrics: 13-18 <7.5 7-12 <8.0 0- 6 7.5-8.5 [place] [employer]. Diabetes Care 33(S1), Apr 2009. Laboratory - Chemistry and C hemistry - challengeon 12-13-2021 Albumin BCP dye [Mass/Vol] 4.0 g/dL 3.4 - 5.0 -[facility] Work Phone: ALP [Catalytic activity/Vol] 64 U/L 33 - 110 -[facility] [employer] Work Phone: ALT With P-5'-P [Catalytic activity/Vol] 15 U/L 7 - 45 -[facility] Work Phone: Comment on above: Patients treated wit h Sulfasalazine may generate falsely decreased results for ALT. Anion gap [Moles/Vol] 12 mmol/L 10 - 20 -[facility] [employer] Work Phone: AST With P-5'-P [Catalytic activity/Vol] 17 U/L 9 - 39 -[facility] [employer] Work Phone: Bilirubin [Mass/Vol] 1.1 mg/dL 0.0 - 1.2 -[facility] [employer] Work Phone: Calcium [Mass/Vol] 9.3 mg/dL 8.6 - 10.6 -[facility] [employer] Work Phone: Chloride [Moles/Vol] 106 mmol/L 98 - 107 -[facility] [employer] Work Phone: CO2 [Moles/Vol] 28 mmol/L 21 - 32 -[facility] [employer] Work Phone: Creatinine [Mass/Vol] 0.72 mg/dL See Below FioMRSA Dennis[facility] [employer] Work Phone: Comment on above: Reference Range: 0.5 0 - 1.05 Glucose [Mass/Vol] 87 mg/dL 74 - 99 LISA-[facility] [employer] Work Phone: Potassium [Moles/Vol] 4.6 mmol/L 3.5 - 5.3 -[facility] [employer] Work Phone: Protein [Mass/Vol] 7.1 g/dL 6.4 - 8.2 [facility] Work Phone: Sodium [Moles/Vol] 141 mmol/L 136 - 145 [facility] Work Phone: Testosterone [Mass/Vol] 27 ng/dL 2-45 [facility] Work Phone: Comment on above: For additional infor lena, please refer tohttp://education.Well/faq/TotalTestosteroneLCMSMSF AQ165(This link is being provided for informational/educational purposes only.) This test was developed and its analytical performancecharacteristics have been determined by [place]. It hasnot been cleared or approved by the U.S. Food and DrugAdministration. This assay has been validated pursuantto the CLIA regulations and is used for clinicalpurposes. Testosterone Free [Mass/Vol] 2.3 pg/mL 0.1-6.4 MP-MRSA [facility] Work Phone: Comment on above: This test was develo ped and its analytical performancecharacteristics have been determined by [facility] [place]. It hasnot been cleared or approved by the U.S. Food and DrugAdministration. This assay has been validated pursuantto the CLIA regulations and is used for clinicalpurposes. TSH Qn 1.16 m[IU]/L See Below MP-[facility] Work Phone: Comment on above: Reference Range: 0.4 4 - 3.98 TSH testing is performed using different testing methodology at [facility] than at other [facility] hospitals. Direct result comparisons should only be made within the same method. Urea nitrogen [Mass/Vol] 11 mg/dL 6 - 23 [facility] Work Phone: No Panel Informationon 04-08 >60 >60 [facility] Work Phone: Comment on above: CALCULATIONS OF ALENA MATED GFR ARE PERFORMED USING THE MDRD STUDY EQUATION FOR THE IDMS-TRACEABLE CREATININE METHODS. CLIN CHEM 2007;53:766-72 Office Visiton 04-08-2021 Follow-up visit Diagnoses/Problems Irregular menses (626.4) (N92.6) Obesity (BMI 30-39.9) (278.00) (E66.9) PCOS (polycystic ovarian syndrome) (256.4) (E28.2) Orders Irregular menses, Obesity (BMI 30-39.9) 17-Hydroxyprogesterone, Serum; Status:In Progress - Specimen/Data Collected; Done: [id number] Comprehensive Metabolic Panel; Status:In Progress - Specimen/Data Collected; Done: [id number] DHEA Sulfate, Serum; Status:In Progress - Specimen/Data Collected; Done: [id number] Hemoglobin A1C; Status:In Progress - Specimen/Data Collected; Done: 47Yhb3077 Prolactin, Serum; Status:In Progress - Specimen/Data Collected; Done: 24Coc7561 Testosterone Free + Total; Status:In Progress - Specimen/Data Collected; Done: 58Gmp7070 TSH WITH REFLEX TO FREE T4 IF ABNORMAL; Status:In Progress - Specimen/Data Collected; Done: 07Ist3956 Patient Discussion/Summary Blood work today Plan based on results Work on low-carb diet and increasing exercise Further plans based on lab results Call with concerns or questions Provider Impressions 20-year-old here for evaluation of irregular menstrual cycles and PCOS. We discussed her course in detail. We discussed the diagnosis of PCOS is a diagnosis of exclusion that requires hormonal evaluation. We will start with comprehensive hormonal blood work today. We did discuss PCOS management. Encouraged continued 1 follow-up with gynecology regarding continued vaginal issues. We did review oral contraceptives spironolactone 1 and Metformin in detail. Her mother was on Metformin in the past and did well on it. Evelina is on sure if she wants to proceed to Metformin treatment at this time. We did discuss the importance of working on her weight and following a low-carb diet and increasing exercise. We will do her comprehensive hormonal evaluation today and call her with results. Follow-up plan based on lab evaluation 1 Amended By: Josef Palta; Apr 15 2021 10:57 AM ESTChief Complaint patient is here for an endocrine consult for PCOS. Patient was referred by Delroy Gross--fabien chirinos History of Present [id number] referred by Dilan Gross CNP for evaluation of PCOS. Patient and her mother present today for her appointment. Per the mother she was diagnosed with PCOS in her early to mid teens after starting to have irregular menstrual cycles. They are unclear on what blood work and what the results were done at that time. She was put on control pills. She was on oral contraceptives and did fine with them until sent for initial pelvic exam which was problematic due to some irritation. She was referred to gynecology and was taken off of control pills a few weeks ago. She was given estrogen cream that seemed to make the irritation worse. She is also taking progesterone in a cyclical fashion. She has been slowly gaining weight over the last couple of years and has gained about 50 pounds since high school. Her mother also struggled with her weight and had a gastric bypass in the last few years. Evelina has not been really watching anything specific in her eating habits. She has been able to lose 5 to 10 pounds on various diet plans but when she stops she goes back up. She denies any hair loss hirsutism or acne. She did try to go off oral contraceptives a few years ago and tried the Depo shot but gained a tremendous amount of weight on it. She does have a family history of diabetes in her paternal grandparents. Her mother was prediabetic prior to her gastric bypass. She denies any chest pain, shortness of breath, nausea, vomiting, diarrhea, constipation, fevers, or chills Review of Systems Comprehensive review of systems otherwise negative. 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) Past Medical History History of Menstruation Onset age 11 years Surgical History History of Knee arthroscopy right History of Myringotomy Family History Family history of hypertension (V17.49) (Z82.49) Family history of type 2 diabetes mellitus (V18.0) (Z83.3) Family history of cardiomyopathy (V17.49) (Z82.49) Family history of hypertension (V17.49) (Z82.49) Family history of Irregular heart beat Family history of hypertension (V17.49) (Z82.49) Family history of cardiac disorder (V17.49) (Z82.49) Family history of hypercholesterolemia (V18.19) (Z83.42) Family history of hypertension (V17.49) (Z82.49) Family history of cardiac disorder (V17.49) (Z82.49) Social History Never a smoker No advance directives (V49.89) (Z78.9) No alcohol use No illicit drug use No recent foreign travel Denied: History of Non-smoker Not currently sexuall (more content not included)... Normal [facility] Prolactin, Serumon Prolactin [Mass/Vol] 7.2 ug/L 3.0 - 20.0 [facility]: Cult, Fungus, yeast onlyon 1 05-28-2020 Yeast Org specific cx Ql (Unsp spec) RO-ZMQPJ-Tezd [address] Work Phone: Tobacco Screening.on 021 Fall risk assessment a) No falls within the last year DN-WYKLA-FsdrBrickfish 300 Work Phone: Last menstrual period start date 02Mar2021 JB-GBNXL-Ykmx [address] Work Phone: Tobacco use status CPHS b) No GO-KICXK-Mzlm [address] Work Phone: Cult, Fungus, yeast onlyon 1 Yeast Org specific cx Ql (Unsp spec) TZ-YJPSO-Lmfh [address] Work Phone: Tobacco Screening.on 021 Fall risk assessment a) No falls within the last year CZ-CCQAI-Mflf [address] Work Phone: Last menstrual period start date [id number] VP-JHBXL-Tcqs [address] Work Phone: Tobacco use status CP b) No ZV-GDTVR-Uldl [address] Work Phone: BASIC METABOLIC PANELon 01-26 0-2019 Anion gap [Moles/Vol] 10 mmol/L Normal 10 - 20 [facility] Comment on above: Performed By: #### B MP #### [address] [address] Calcium [Mass/Vol] 9.1 mg/dL Normal 8.6 - 10.3 [facility] Comment on above: Performed By: #### B MP #### [address] [address] Chloride [Moles/Vol] 106 mmol/L Normal 98 - 107 [facility] Comment on above: Performed By: #### B MP #### [address] [address] Creatinine [Mass/Vol] 0.65 mg/dL Normal 0.50 - 1.05 [facility] Comment on above: Performed By: #### B MP #### [address] [address] GFR- AM. >60 Normal >60 [facility] Comment on above: Result Comment: CALC ULATIONS OF ESTIMATED GFR ARE PERFORMED USING THE MDRD STUDY EQUATION FOR THE IDMS-TRACEABLE CREATININE METHODS. CLIN CHEM 2007;53:766-72 Performed By: #### B MP #### [address] [address] GFR-NON AM. >60 Normal >60 [facility] Comment on above: Performed By: #### B MP #### [address] [address] Glucose [Mass/Vol] 89 mg/dL Normal 74 - 99 [facility] Comment on above: Performed By: #### B MP #### [address] [address] HCO3 (Bld) [Moles/Vol] 24 mmol/L Normal 21 - 32 [facility] Comment on above: Performed By: #### B MP #### [address] [address] Potassium [Moles/Vol] 4.3 mmol/L Normal 3.5 - 5.3 [facility] Comment on above: Performed By: #### B MP #### [address] [address] Sodium [Moles/Vol] 136 mmol/L Normal 136 - 145 [facility] Comment on above: Performed By: #### B MP #### [address] [address] Urea nitrogen [Mass/Vol] 12 mg/dL Normal 6 - 23 [facility] Comment on above: Performed By: #### B MP #### [address] [address] CBC AND DIFFERENTIALon 02-13 Basophils (Bld) [#/Vol] 0.10 10*3/uL Normal 0.00 - 0.10 [facility] Comment on above: Performed By: #### C BCDF #### [address] [address] Basophils/100 WBC (Bld) 0.5 % Normal 0.0 - 2.0 [facility] Comment on above: Performed By: #### C BCDF #### [address] [address] Eosinophils (Bld) [#/Vol] 0.10 10*3/uL Normal 0.00 - 0.70 [facility] Comment on above: Performed By: #### C BCDF #### [address] [address] Eosinophils/100 WBC (Bld) 0.5 % Normal 0.0 - 6.0 [facility] Comment on above: Performed By: #### C BCDF #### [address] [address] Erythrocyte distribution width (RBC) [Ratio] 12.8 % Normal 11.5 - 14.5 [facility] Comment on above: Performed By: #### C BCDF #### [address] [address] Hematocrit (Bld) [Volume fraction] 40.7 % Normal 36.0 - 46.0 [facility] Comment on above: Performed By: #### C BCDF #### [address] [address] Hemoglobin (Bld) [Mass/Vol] 13.3 g/dL Normal 12.0 - 16.0 [facility] Comment on above: Performed By: #### C BCDF #### [address] [address] Lymphocytes (Bld) [#/Vol] 1.80 10*3/uL Normal 1.20 - 4.80 [facility] Comment on above: Performed By: #### C BCDF #### [address] [address] Lymphocytes/100 WBC (Bld) 15.6 % Normal 13.0 - 44.0 [facility] Comment on above: Performed By: #### C BCDF #### [address] [address] MCHC (RBC) [Mass/Vol] 32.7 g/dL Normal 32.0 - 36.0 [facility] Comment on above: Performed By: #### C BCDF #### [address] [address] MCV (RBC) [Entitic vol] 88 fL Normal 80 - 100 [facility] Comment on above: Performed By: #### C BCDF #### [address] [address] Monocytes (Bld) [#/Vol] 0.50 10*3/uL Normal 0.10 - 1.00 [facility] Comment on above: Performed By: #### C BCDF #### [address] [address] Monocytes/100 WBC (Bld) 4.0 % Normal 2.0 - 10.0 [facility] Comment on above: Performed By: #### C BCDF #### [address] [address] Neutrophils (Bld) [#/Vol] 9.10 10*3/uL High 1.20 - 7.70 [facility] Comment on above: Result Comment: Perc ent differential counts (%) should be interpreted in the context of the absolute cell counts (cells/L). Performed By: #### C BCDF #### [address] [address] Neutrophils/100 WBC (Bld) 79.4 % Normal 40.0 - 80.0 [facility] Comment on above: Performed By: #### C BCDF #### [address] [address] Nucleated RBC/100 WBC (Bld) [Ratio] 0.1 /100 WBC Normal [facility] Comment on above: Performed By: #### C BCDF #### [address] [address] Platelets (Bld) [#/Vol] 223 10*3/uL Normal 150 - 450 [facility] Comment on above: Performed By: #### C BCDF #### [address] [address] RBC (Bld) [#/Vol] 4.60 x10E12/L Normal 4.00 - 5.20 [facility] Comment on above: Performed By: #### C BCDF #### [address] [address] WBC (Bld) [#/Vol] 11.5 10*3/uL High 4.4 - 11.3 [facility] Comment on above: Performed By: #### C BCDF #### [address] [address] [address] ABDOMEN AND PELVIS W IV C [facility] 02-14-2020 CT ABDOMEN AND PELVIS W IV CONTRAST Patient Name: EVELINA SAM STUDY: CT ABDOMEN AND PELVIS W IV CONTRAST; 02/14/2020 1:48 pm INDICATION: abd pain. COMPARISON: 12/2014 ACCESSION NUMBER(S): [id number] ORDERING CLINICIAN: JESS FRANKLIN TECHNIQUE: CT of the abdomen and pelvis was performed. Standard contiguous axial images were obtained at 3 mm slice thickness through the abdomen and pelvis. Coronal and sagittal reconstructions at 3 mm slice thickness were performed. 90 ml of contrast Omnipaque 350 were administered intravenously without immediate complication. FINDINGS: There is marked constipation throughout the entire colon. There is no bowel obstruction. Normal appendix. No diverticulitis. No abnormal renal enhancement. Mild fatty liver. Normal pancreas and adrenal glands. No ovarian pathology detected. No significant free fluid. IMPRESSION: 1. Fairly severe constipation. No evidence of acute bowel inflammation. Electronically signed by: SHERRI KIRK MD Normal [facility] HCG,URINEon 02-14-2020 Beta HCG ( test) Ql (U) Negative Normal Negative [facility] Comment on above: Performed By: #### H CGU #### [place] [address] HEPATIC FUNCTION PANELon Albumin [Mass/Vol] 4.0 g/dL Normal 3.4 - 5.0 [facility] Comment on above: Performed By: #### H EPFP #### [place] [address] ALP [Catalytic activity/Vol] 46 U/L Normal 33 - 110 [facility] Comment on above: Performed By: #### H EPFP #### [place] [address] ALT [Catalytic activity/Vol] 11 U/L Normal 7 - 45 [facility] Comment on above: Result Comment: Almita ents treated with Sulfasalazine may generate falsely decreased results for ALT. Performed By: #### H EPFP #### [place] [address] AST [Catalytic activity/Vol] 14 U/L Normal 9 - 39 [facility] Comment on above: Performed By: #### H EPFP #### [place] [id number] Bilirubin [Mass/Vol] 1.2 mg/dL Normal 0.0 - 1.2 [facility] Comment on above: Performed By: #### H EPFP #### [address] [address] Bilirubin.direct [Mass/Vol] 0.2 mg/dL Normal 0.0 - 0.3 [facility] Comment on above: Performed By: #### H EPFP #### [address] [address] Protein [Mass/Vol] 7.0 g/dL Normal 6.4 - 8.2 [facility] Comment on above: Performed By: #### H EPFP #### [place] [id number] LACTATEon 02-14-2020 Lactate [Moles/Vol] 1.1 mmol/L Normal 0.4 - 2.0 [facility] Comment on above: Result Comment: Alena puncture immediately after or during the administration of Metamizole may lead to falsely low results. Testing should be performed immediately prior to Metamizole dosing. Performed By: #### L ACT #### [place] [id number] LIPASEon 02-14-2020 Lipase [Catalytic activity/Vol] 18 U/L Normal 9 - 82 [facility] Comment on above: Result Comment: Alena puncture immediately after or during the administration of Metamizole may lead to falsely low results. Testing should be performed immediately prior to Metamizole dosing. M-bigefa-j-benzoquinone imine (metabolite of Acetaminophen) will generate erroneously low results in samples for patients that have taken toxic doses of acetaminophen. Performed By: #### L IPAS #### [place] [id number] Provider Note - ED v2on 01-26 Provider Note - ED v2 Provider Note - ED v2: Chart Review: ED NOTES ED NOTES: ====HPI==== Patient is a 19-year-old female who presents to the emergency department with a chief complaint of lower abdominal pain bilaterally and nausea and vomiting that started yesterday evening. She denies any fever or chills. No diarrhea. She states that her pain comes in waves. She denies any urinary symptoms. No abnormal vaginal discharge. She denies any chance of . She reports that she still has her appendix and her gallbladder. She states that the pain awoke her from her sleep. Character: Severity: 2/10 Exacerbated by: nothing Improved by: nothing Social HX: denies TOBACCO denies ETOH denies DRUGS Goes to college ====Review of Systems==== 10 point system review is negative except for those specifically mentioned in history of present illness ====Physical Exam==== Constitutional/General: Alert and oriented x3, well appearing, nontoxic, and in NAD. Head: Normocephalic and atraumatic. Eyes: PERRL, EOMI, conjunctive normal, sclera nonicteric, subconjunctival layer is pink. Mouth: Oropharynx clear, handling secretions, no trismus, no asymmetry of the posterior oropharynx or uvular edema Neck: Supple, full ROM, non tender to palpation in the midline, no stridor, no crepitus, no meningeal signs. Trachea at midline. Respiratory: Lungs clear to auscultation bilaterally, no wheezes, rales, or rhonchi, not in respiratory distress. Cardiovascular: Regular rate, regular rhythm, no murmurs, gallops, or rubs, 2+ distal pulses. Chest: normal chest wall movement GI: Abdomen soft, tender in bilateral lower quadrants, worse in the LLQ and suprapubic region, nondistended, + BS, no organomegaly, no palpable masses, no rebound, guarding, or rigidity. Musculoskeletal: Moves all extremities x4, warm and well perfused, no clubbing, cyanosis, or edema, cap refill <3 seconds Integument: Skin warm and dry, no rashes. Lymphatic: No lymphadenopathy noted. Neurologic: No focal deficits Psychiatric: Normal affect. ====ED Course and Medical Decision Making==== See MDM section for review of findings & plan of care. Portions of this note were dictated by speech recognition. An attempt at proof reading was made to minimize errors. Minor errors in operations specialists may be present. Please call if questions.. HISTORY OF PRESENTING ILLNESS EVELINA is a 19 year old Female and was seen by me at 14-Feb-2020 10:29 for a chief complaint of abdominal pain (with n/v started during the night) . Triage Information: Most recent Vital Sign Value Date Temp (F): 97.2 02-14-2020 10:26 Temp (C): 36.2 02-14-2020 10:26 Heart Rate (beats/min): 78 02-14-2020 10:26 Respirations (breaths/min): 18 02-14-2020 10:26 SpO2 (%): 98 02-14-2020 10:26 BP Systolic (mm Hg): 126 02-14-2020 10:26 BP Diastolic (mm Hg): 78 02-14-2020 10:26 PAST MEDICAL HISTORY ATTESTATION: I have reviewed and confirmed nurse's/medic's notes for patient's medications, allergies, medical history, and surgical history ALLERGIES/INTOLERANCES: Allergy Allergen: cephalosporins Type: Drug Category Reaction: Hives/Urticaria HEALTH HISTORY: No documented data. 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: Is : no(1) Is : no(1) RESULTS/VITAL SIGNS RESULTS: Recent Lab Results: I have reviewed these laboratory results: Urine Test 14-Feb-2020 11:59:00 ResultValue HCG, Urine NEGATIVE Urinalysis 14-Feb-2020 11:59:00 ResultValue Color, Urine Yellow Reference Range: STRAW,YELLOW Appearance, Urine HAZY Specific [place], Urine 1.027 pH, Urine 6.0 Protein, Urine NEGATIVE Glucose, Urine NEGATIVE Blood, Urine SMALL(1+) A Ketones, Urine NEGATIVE Bilirubin, Urine NEGATIVE Urobilinogen, Urine <2.0 Nitrite, Urine Negative Leukocyte Esterase, Urine SMALL(1+) A Urinalysis, Microscopic 14-Feb-2020 11:59:00 ResultValue White Cells 6 A Red Blood Cells 5 Epithelial Cells, Squamous 15 Bacteria, Urine 1+ A Mucous 2+ Hepatic Function Panel 14-Feb-2020 11:09:00 ResultValue Aspartate Transaminase, Serum 14 ALB 4.0 T Bili 1.2 Bilirubin, Serum Direct - Conjugated 0.2 ALKP 46 Alanine Aminotransferase, Serum 11 T Pro 7.0 Complete Blood Count + Differential 14-Feb-2020 11:09:00 ResultValue White Blood Cell Count 11.5 H Nucleated Erythrocyte Count 0.1 Red Blood Cell Count 4.60 HGB 13.3 HCT 40.7 MCV 88 MCHC 32.7 PLT 223 RDW-CV 12.8 Neutrophil % 79.4 Lymphocyte % 15.6 Monocyte % 4.0 Eosinophil % 0.5 Basophil % 0.5 Neutrophil Count 9.10 H Lymphocyte Count 1.80 Monocyte Count 0.50 Eosinophil Count 0.10 Basophil Count 0.10 Basic Metabolic Panel 14-Feb-2020 11:09:00 ResultValue Glucose, Serum 89 NA 136 K 4.3 CL 106 Bicarbonate, Serum 24 Anion Gap, Serum 10 BUN 12 CREAT 0.65 GFR-Non >60 GFR- >60 Calcium, Serum 9.1 Lactate, Level 14-Feb-2020 11:09:00 ResultValue Lactate, Level 1.1 Lipase, Serum 14-Feb-2020 11:09:00 ResultValue Lipase, Serum 18 Radiology Results: Impression: 1. Fairly severe constipation. No evidence of acute bowel inflammation. CT Abdomen and Pelvis with IV Contrast [Feb 14 2020 2:06PM] Impression: 1. No correlate for pain Ultrasound Pelvis, Uterus and Ovaries [Feb 14 2020 12:14PM] VITAL SIGNS: T PRBP SpO2O2(LPM) %FiO2 Method 14-Feb-2020 13:50:[id number]/65 96 room air, no respiratory support 14-Feb-2020 12:00:00-9674701/63 99 room air, no respiratory support 14-Feb-2020 10:26:00-36.74960715/78 98 room air, no respiratory support MEDICAL DECISION MAKING/ED COURSE MDM/ED COURSE: T scan shows fairly severe constipation. It was otherwise unremarkable. Ultrasound is also unremarkable. Laboratory studies are overall unremarkable as well. Patient's urine is somewhat suspicious for urinary tract infection although patient does not have any symptoms. I will write her for an antibiotic and she states that she will call back to see you if her urine grows back anything and will hold off on taking her antibiotic until her culture results are back. CLINICAL IMPRESSION Diagnosis/Annotation: ED Dx Name:Bilateral lower abdominal pain Code:R10.31 Name:Vomiting Code:R11.10 Name:Constipation Code:K59.00 Dispostion: discharged Type: home ATTESTATION CRITICAL CARE TIME Is this a critically ill patient: no Electronic Signatures: Jess Franklin (PAC) (Signed 14-Feb-2020 14:31) Authored: ED Notes, HPI, PMH, Results/Vital Signs, MDM/ED Course, Clinical Impression, Attestation, Chart Review, Scores Last Updated: 14-Feb-2020 14:31 by Jess Franklin (PAC) References: 1. Data Referenced From Triage - ED 14-Feb-2020 10:26 [facility] Risk Screen - Adult Emergenc yon 02-14-2020 Risk Screen - Adult Emergency Preferred Language: Preferred Language: Preferred Language for Discussing Health Care (patient/designee)Ethiopian Advanced Directives: Advance Directive/DNRno Family Violence Adult: Abuse Screen: Are you or have you been threatened or abused physically, emotionally, or sexually by anyoneno Learning Assessment (Patient): Learning Assessment (Patient): Patient is Able to be Assessed for Learningyes Factors Influencing Readiness to Learnacuteness of illness Factors that Impact Ability to Learnnone Devices/Methods Used to Communicatenone Learning Preferencesaudio Cultural Considerationsnone Developmental Considerationsnone Mandaeism Considerationsnone Learning Assessment (Other Learner): Learning Assessment (Other Learner): Other learner availableno Pressure Injury/TB/Substance: Pressure Injury: Pressure Injury Present on Admissionno Do you have a coughno Admission Risk Screen: Significant IndicatorsComplete CAGE: CAGE: Is this an [place] a Tra[place] Center [place] [place] no Electronic Signatures: Hannah Briseno (HARJINDER) (Signed 14-Feb-2020 10:29) Authored: Preferred Language, Advanced Directives, Family Violence Adult, Learning Assessment (Patient), Learning Assessment (Other Learner), Pressure Injury/TB/Substance, Pressure Injury, CAGE Last Updated: 14-Feb-2020 10:29 by Hannah Briseno (HARJINDER) [facility] Triage - EDon 02-14-2020 Triage - ED Quick Triage: Are You no Are You Currently Breastfeedingno Chart Review: ARRIVAL INFORMATION Mode of Arrival: private vehicle CHIEF COMPLAINT EVELINA SAM is a Female patient with a chief complaint of abdominal pain (with n/v started during the night). Triage Date/Time: 14-Feb-2020 10:26 Pain Rating (0-10): 2 = Mild Pain location: abd Vital Signs: Temperature: 97.2F ( 36.2C) taken oral Blood Pressure: 126/78 Mean: Heart Rate: 78 Respiratory Rate: 18 Pulse Oximetry: 98% on room air, no respiratory support. Height: 5 feet 10.00 inches. 177.8 CM Weight: 238.0 pounds. Calculated 108.0 kg. (stated) Calculated BMI (kg/m2): 34.163 Calculated BSA (m2) 2.31 [place] Coma Scale: Best Eye Response: (E4) spontaneous Best Motor Response: (M6) obeys commands Best Verbal Response: (V5) oriented Walter Score: 15 Allergies: yes Last menstrual period: 07-Feb-2020 Patient has homicidal thoughts: no NELLY: 3 Symptoms Are POSITIVE For: nausea and vomiting. Symptoms Are Negative For: anorexia, constipation, diaphoresis, diarrhea, distention, fever and rectal blood. Risk Screens Suicide Risk Screen In the Past Month: Have you wished you were or wished you could go to sleep and not wake up no In the Past Month: Have you had any actual thoughts of killing yourself no In Your Lifetime: Have you ever done anything, started to do anything, or prepared to do anything to end your life no Felix Fall Scale Screening Has the patient fallen before (or is the patient in the ED as a result of a fall) has not had a fall Does the patient have an impaired gait does not have impaired gait Is the patient cognitively impaired not cognitively impaired Interventions: Felix Fall Interventions: LOW INTERVENTIONS: *patient oriented to surroundings and call system, * patient/family falls education completed and documented, *patients fall status communicated during bedside handoff, *whiteboard updated, *mode of toileting discussed with patient, *bed in low position with brakes locked, *call light in reach, * non-skid footwear TRAVEL HISTORY Travel History Coronavirus Screening: no exposure or symptoms PAIN Pain Scale Used: JB Pain Rating (0-10): 2 = Mild Past Medical History: Past Medical History Reviewedyes denies: Past Medical History, Active Electronic Signatures: Hannah Briseno) (Signed 14-Feb-2020 10:28) Entered: Risk Screens, Pain, Chart Review, Scores, Past Medical History Authored: Quick Triage, Risk Screens, Pain, Chart Review, Scores, Past Medical History Last Updated: 14-Feb-2020 10:28 by Hannah Briseno (RN) Normal [facility] UA MICROSCOPICon 02-14-2020 BACTERIA 1+ /HPF Abnormal [facility] Comment on above: Performed By: #### U AMIC ####[place] [address] MUCUS 2+ /LPF Normal [facility] Comment on above: Performed By: #### U AMIC ####[place] [address] RBC 5 /HPF Normal 0-5 [facility] Comment on above: Performed By: #### U AMIC ####[place] [address] SQUAMOUS EPITH. CELLS 15 /HPF Normal [facility] Comment on above: Performed By: #### U AMIC ####[place] [address] WBC 6 /HPF Abnormal 0-5 [facility] Comment on above: Performed By: #### U AMIC ####[place] [id number] URINALYSISon 02-14-2020 Appearance (U) HAZY Normal CLEAR [facility] Comment on above: Performed By: #### U A #### [address] [address] Bilirubin (U) [Mass/Vol] Negative Normal NEGATIVE [facility] Comment on above: Performed By: #### U A #### [place] [address] BLOOD SMALL(1+) Abnormal NEGATIVE [facility] Comment on above: Performed By: #### U A #### [address] [address] Color (U) Yellow Normal STRAW,YELLO W [facility] Comment on above: Performed By: #### U A #### [place] [address] Glucose [Mass/Vol] Negative Normal NEGATIVE [facility] Comment on above: Performed By: #### U A #### [place] [id number] Ketones Ql (U) Negative Normal NEGATIVE [facility] Comment on above: Performed By: #### U A #### [address] [address] Leukocyte esterase Test strip Ql (U) SMALL(1+) Abnormal NEGATIVE [facility] Comment on above: Performed By: #### U A #### [place] [id number] Nitrite Ql (U) Negative Normal NEGATIVE [facility] Comment on above: Performed By: #### U A #### [place] [id number] pH (Bld) 6.0 Normal 5.0 - 8.0 [facility] Comment on above: Performed By: #### U A #### [place] [id number] Protein (U) [Mass/Vol] Negative Normal NEGATIVE [facility] Comment on above: Performed By: #### U A #### [place] [id number] Specific gravity (U) [Rel density] 1.027 Normal 1.005 - 1.035 [facility] Comment on above: Performed By: #### U A #### [place] [id number] Urobilinogen Qn (U) <2.0 Normal 0.0 - 1.9 [facility] Comment on above: Performed By: #### U A #### [place] [id number] US PELVISon 02-14-2020 US PELVIS Patient Name: EVELINA SAM STUDY: US PELVIS; 02/14/2020 11:50 am INDICATION: pelvic pain. COMPARISON: None. ACCESSION NUMBER(S): [id number] ORDERING CLINICIAN: JESS FRANKLIN TECHNIQUE: Multiple multiplanar static de la torre scale, color and spectral waveform sonographic images of the pelvis were obtained. Transabdominal ultrasound was performed. FINDINGS: Uterus measures 7.4 x 2.6 x 4.9 cm. Endometrium is 4 mm. Both ovaries are normal in size and blood flow. No adnexal masses IMPRESSION: 1. No correlate for pain Electronically signed by: SHERRI KIRK MD Normal [facility] IO Vision Screeningon 2019 IO Vision Screening -[facility] Work Phone: Auto Diffon 07-05-2018 Basophils #/vol (Bld) 0.0 E3/mcL Normal 0.0-0.2 [facility] Comment on above: Order Comment: Order Added by Discern Expert. Performed By: #### 2 [id number] #### YUE RemHemo [address] [place] [address] Basophils/100 WBC (Bld) 0.3 % Normal 0.0-2.0 [facility] Comment on above: Order Comment: Order Added by Discern Expert. Performed By: #### 2 [id number] #### YUE RemHemo [address] [place] [address] Eos Absolute 0.1 E3/mcL Normal 0.0-0.7 [facility] Comment on above: Order Comment: Order Added by Discern Expert. Performed By: #### 2 [id number] #### YUE RemHemo [address] [place] [address] Eosinophils/100 WBC (Bld) 1.2 % Normal 0.0-11.0 [facility] Comment on above: Order Comment: Order Added by Discern Expert. Performed By: #### 2 [id number] #### YUE RemHemo [address] [place] [address] Lymphocytes #/vol (Bld) 3.5 E3/mcL High 1.2-3.4 [facility] Comment on above: Order Comment: Order Added by Discern Expert. Performed By: #### 2 [id number] #### YUE RemHemo [address] [place] [address] Lymphocytes/100 WBC (Bld) 40.1 % Normal 20.0-55.0 [facility] Comment on above: Order Comment: Order Added by Discern Expert. Performed By: #### 2 [id number] #### YUE RemHemo [address] [place] [address] Haskell Absolute 0.5 E3/mcL Normal 0.0-0.7 [facility] Comment on above: Order Comment: Order Added by Discern Expert. Performed By: #### 2 [id number] #### YUE RemHemo [address] [place] [address] Monocytes/100 WBC (Bld) 6.2 % Normal 0.0-10.0 [facility] Comment on above: Order Comment: Order Added by Discern Expert. Performed By: #### 2 [id number] #### YUE RemHemo [address] [place] [id number] Neutro Absolute 4.5 E3/mcL Normal 1.4-6.5 [facility] Comment on above: Order Comment: Order Added by Discern Expert. Performed By: #### 2 [id number] #### YUE RemHemo [address] [place] [address] Neutro Auto 52.2 % Normal 37.0-75.0 [facility] Comment on above: Order Comment: Order Added by Discern Expert. Performed By: #### 2 [id number] #### YUE RemHemo [address] [place] [address] CBC w/ Auto Diffon 9 Erythrocyte distribution width Ratio (RBC) 13.2 % Normal 11.5-14.5 [facility] Comment on above: Performed By: #### 2 [id number] #### YUE RemHemo [address] [place] [address] Hematocrit Volume Fraction (Bld) 39.3 % Normal 36.0-48.0 [facility] Comment on above: Performed By: #### 2 [id number] #### YUE RemHemo [address] [place] [address] Hemoglobin mass conc (Bld) 12.9 g/dL Normal 12.0-16.0 [facility] Comment on above: Performed By: #### 2 [id number] #### YUE RemHemo [address] [place] [address] MCH Entitic mass (RBC) 29.1 pg Normal 27.0-31.0 [facility] Comment on above: Performed By: #### 2 [id number] #### YUE AlexandraHemo [address] [place] [address] MCHC mass conc (RBC) 32.9 g/dL Low 33.0-37.0 [facility] Comment on above: Performed By: #### 2 [id number] #### YUE AlexandraHemo [address] [place] [address] MCV Entitic volume (RBC) 88.5 fL Normal 78.0-100.0 [facility] Comment on above: Performed By: #### 2 [id number] #### YUE AlexandraHemo [address] [place] [id number] Platelet mean volume Entitic volume (Bld) 12.0 fL High 7.4-11.0 [facility] Comment on above: Performed By: #### 2 [id number] #### YUE AlexandraHemo [facility] [place] [address] Platelets #/vol (Bld) 199 E3/mcL Normal 130-400 [facility] Comment on above: Performed By: #### 2 [id number] #### YUE AlexandraHemo [address] [place] [id number] RBC #/vol (Bld) 4.44 E6/mcL Normal 3.90-5.40 [facility] Comment on above: Performed By: #### 2 [id number] #### YUE AlexandraHemo [address] [place] [id number] WBC #/vol (Bld) 8.7 E3/mcL Normal 3.6-11.0 [facility] Comment on above: Performed By: #### 2 [id number] #### YUE AlexandraHemo [facility] [place] [id number] Vital Signs Date Time Vital Sign Value Performing Clinician Facility 08-08-2024 14:040 Body height 179.1 cm Delroy BENDER Work Phone: [facility] 08-08-2024 14:10-040 Body mass index (BMI) [Ratio] 38.31 kg/m2 Delroy BENDER Work Phone: [facility] 08-08-2024 14:10-040 Body weight 122.83 kg Delroy Gross APRNMALORIE Work Phone: [facility] 08-08-2024 14:10-0400 Diastolic blood pressure 74 mm[Hg] Delroy Gross APRN-MANUFACTURING AREA MANAGER Work Phone: [facility] 08-08-2024 14:10-0400 Systolic blood pressure 118 mm[Hg] Delroy Gross MACHINE COIL ASSEMBLER-MANUFACTURING AREA MANAGER Work Phone: [facility] 01-14-2024 08:50-0400 Body height 180.3 cm Анна Sheets DO Work Phone: [facility] 01-14-2024 08:50-0400 Body mass index (BMI) [Ratio] 37.94 kg/m2 Анна Sheets DO Work Phone: [facility] 01-14-2024 08:50-0400 Body temperature 97.9 [degF] Анна Sheets DO Work Phone: [facility] 01-14-2024 08:50-0400 Body weight 123.38 kg Анна Sheets DO Work Phone: [facility] 01-14-2024 08:50-0400 Diastolic blood pressure 68 mm[Hg] Анна Sheets DO Work Phone: [facility] 01-14-2024 08:50-0400 Heart rate 81 /min Анна Sheets DO Work Phone: [facility] 01-14-2024 08:50-0400 Respiratory rate 16 /min Анна Sheets DO Work Phone: [facility] 01-14-2024 08:50-0400 SaO2% (BldA) [Mass fraction] 99 % Анна Sheets DO Work Phone: [facility] 01-14-2024 08:50-0400 Systolic blood pressure 110 mm[Hg] Анна Sheets DO Work Phone: [facility] 07-14-2023 08:01-0400 Body height 180.3 cm Анна Sheets DO Work Phone: [facility] 07-14-2023 08:01-0400 Body temperature 97.3 [degF] Анна Sheets DO Work Phone: [facility] 07-14-2023 08:01-0400 Body weight 125.19 kg Анна Sheets DO Work Phone: [facility] 07-14-2023 08:01-0400 Diastolic blood pressure 76 mm[Hg] Анна Sheets DO Work Phone: [facility] 07-14-2023 08:01-0400 Heart rate 77 /min Анна Sheets DO Work Phone: [facility] 07-14-2023 08:01-0400 Respiratory rate 16 /min Анна Sheets DO Work Phone: [facility] 07-14-2023 08:01-0400 SaO2% (BldA) [Mass fraction] 99 % Анна Sheets DO Work Phone: [facility] 07-14-2023 08:01-0400 Systolic blood pressure 114 mm[Hg] Анна Sheets DO Work Phone: [facility] 06-16-2023 08:17-0500 Body height 180.3 cm Анна Sheets DO Work Phone: [facility] 06-16-2023 08:17-0500 Body temperature 97.39 [degF] Анна Sheets DO Work Phone: [facility] 06-16-2023 08:17-0500 Body weight 122.02 kg Анна Sheets DO Work Phone: [facility] 06-16-2023 08:17-0500 Diastolic blood pressure 70 mm[Hg] Анна Sheets DO Work Phone: [facility] 06-16-2023 08:17-0500 Heart rate 67 /min Анна Sheets DO Work Phone: [facility] 06-16-2023 08:17-0500 Respiratory rate 16 /min Анна Sheets DO Work Phone: [facility] 06-16-2023 08:17-0500 SaO2% (BldA) [Mass fraction] 98 % Анна Sheets DO Work Phone: [facility] 06-16-2023 08:17-0500 Systolic blood pressure 108 mm[Hg] Анна Sheets DO Work Phone: [facility] 06-05-2023 11:07-0500 Body height 180.3 cm Delroy BENDER Work Phone: [facility] 06-05-2023 11:07-0500 Body mass index (BMI) [Ratio] 37.24 kg/m2 Delroy BENDER Work Phone: [facility] 06-05-2023 11:07-0500 Body weight 121.11 kg Delroy BENDER Work Phone: [facility] 06-05-2023 11:07-0500 Diastolic blood pressure 82 mm[Hg] Delroy Gross APRN-KRISTIN Work Phone: [facility] 06-05-2023 11:07-0500 Systolic blood pressure 114 mm[Hg] Delroy Gross APRN-KRISTIN Work Phone: [facility] 04-07-2022 16:10-0500 Body height 177.8 cm Faustino [facility] [address] Work Phone: 04-07-2022 16:10-0500 Body mass index (BMI) [Ratio] 39.32 kg/m2 Faustino [facility] [address] Work Phone: 04-07-2022 16:10-0500 Body surface area Derived from formula 2.39 m2 Faustino [facility] [address] Work Phone: 04-07-2022 16:10-0500 Body weight 124.31 kg Faustino M Rosalinda XD-NDFYM-Ccxxtrp ro [address] Work Phone: 04-07-2022 16:10-0500 Diastolic blood pressure 70 mm[Hg] Faustino Tellez KB-PXAPK-Udolwenxc [address] Work Phone: 04-07-2022 16:10-0500 Systolic blood pressure 116 mm[Hg] Faustino Tellez CU-GHCTR-Udsdbzgpb [address] Work Phone: 04-07-2022 16:10-0500 0 1 Faustino Tellez SQ-WJJVJ-Ggnpmxx ro [address] Work Phone: Comment on above: [facility] 09-10-2021 13:06-0400 Body height 179.07 cm Faustino Tellez Work Phone: LW-XJDIG-Khhaxmzal [address] Work Phone: 09-10-2021 13:06-0400 Body mass index (BMI) [Ratio] 37.06 kg/m2 Faustino Tellez Work Phone: HC-SZRES-Hwsxmhlcc [address] Work Phone: 09-10-2021 13:06-0400 Body surface area Derived from formula 2.35 m2 Faustino Tellez Work Phone: MK-KVJXH-Kfwdqxirj [address] Work Phone: 09-10-2021 13:06-0400 Body weight 118.84 kg Faustino Tellez Work Phone: RG-OERWG-Nskcqcvpj [address] Work Phone: 09-10-2021 13:06-0400 Diastolic blood pressure 62 mm[Hg] Faustino Tellez Work Phone: BZ-VPVEQ-Jbpiovlcb [address] Work Phone: 09-10-2021 13:06-0400 Systolic blood pressure 130 mm[Hg] Faustino Tellez Work Phone: VU-DTXDL-Xdtsdeekz [address] Work Phone: 09-10-2021 13:06-0400 0 1 Faustino Tellez Work Phone: PB-TNNMF-Bfkdajroa [address] Work Phone: Comment on above: GRAV PARA [facility] 07-09-2021 12:39-0400 Body height 179.07 cm Faustino Tellez Work Phone: [facility] Work Phone: 07-09-2021 12:39-0400 Body mass index (BMI) [Ratio] 36.81 kg/m2 Faustino Tellez Work Phone: [facility] Work Phone: 07-09-2021 12:39-0400 Body surface area Derived from formula 2.35 m2 Faustino Tellez Work Phone: [facility] rokranthi Work Phone: 07-09-2021 12:39-0400 Body temperature 96.2 [degF] Faustino Tellez Work Phone: [facility] Work Phone: 07-09-2021 12:39-0400 Body weight 118.03 kg Faustino Telelz Work Phone: [facility] Work Phone: 07-09-2021 12:39-0400 Diastolic blood pressure 82 mm[Hg] Faustino Tellez Work Phone: [facility] Work Phone: 07-09-2021 12:39-0400 Heart rate 76 /min Faustino Tellez Work Phone: [facility] Work Phone: 07-09-2021 12:39-0400 Respiratory rate 16 /min Faustino Tellez Work Phone: [facility] Work Phone: 07-09-2021 12:39-0400 Systolic blood pressure 120 mm[Hg] Faustino Tellez Work Phone: [facility] Work Phone: 05-28-2021 15:20-0500 Body height 179.07 cm Faustino Tellez Work Phone: MM-GISXA-Mojdinoby [address] Work Phone: 05-28-2021 15:20-0500 Body mass index (BMI) [Ratio] 35.93 kg/m2 Faustino Tellez Work Phone: MJ-QCGTF-Mfpjxhlvj [address] Work Phone: 05-28-2021 15:20-0500 Body surface area Derived from formula 2.32 m2 Faustino Tellez Work Phone: ZT-HGGES-Fhngigypx [address] Work Phone: 05-28-2021 15:20-0500 Body weight 115.21 kg Faustino Tellez Work Phone: BL-RTRWG-Gxvrkyppf [address] Work Phone: 05-28-2021 15:20-0500 Diastolic blood pressure 70 mm[Hg] Faustino Tellez Work Phone: ZE-MAAGR-Ezpgtqymu [address] Work Phone: 05-28-2021 15:20-0500 Systolic blood pressure 120 mm[Hg] Faustino Tellez Work Phone: DN-HASOL-Aotvkwnau [address] Work Phone: 05-28-2021 15:20-0500 0 1 Faustino Tellez Work Phone: DZ-QJVLS-Nwhidhipv [address] Work Phone: Comment on above: GRAV PARA [facility] 04-08-2021 15:01-0500 Body height 179.07 cm Faustino Tellez Work Phone: [facility] Work Phone: 04-08-2021 15:01-0500 Body mass index (BMI) [Ratio] 36.67 kg/m2 Faustino Tellez Work Phone: [facility] rokranthi Work Phone: 04-08-2021 15:01-0500 Body surface area Derived from formula 2.34 m2 Faustino Tellez Work Phone: [facility] rokranthi Work Phone: 04-08-2021 15:01-0500 Body temperature 96.4 [degF] Faustino Tellez Work Phone: [facility] rok[facility]hi Work Phone: 04-08-2021 15:01-0500 Body weight 117.57 kg Faustino Tellez Work Phone: [facility] rok[facility]hi Work Phone: 04-08-2021 15:01-0500 Diastolic blood pressure 78 mm[Hg] Faustino Tellez Work Phone: [facility] rok[facility]hi Work Phone: 04-08-2021 15:01-0500 Heart rate 78 /min Faustino Tellez Work Phone: [facility] Work Phone: 04-08-2021 15:01-0500 Respiratory rate 16 /min Faustino Tellez Work Phone: [facility] Work Phone: 04-08-2021 15:01-0500 Systolic blood pressure 122 mm[Hg] Faustino Tellez Work Phone: [facility] Work Phone: 03-26-2021 11:43-0500 Body height 179.07 cm Faustino Tellez Work Phone: RI-WIXKG-Zacloqjql [address] Work Phone: 03-26-2021 11:43-0500 Body mass index (BMI) [Ratio] 36.41 kg/m2 Faustino Tellez Work Phone: IA-QRZBW-Otbxozqhs [address] Work Phone: 03-26-2021 11:43-0500 Body surface area Derived from formula 2.34 m2 Faustino Tellez Work Phone: KB-IIUZL-Gkjfrdbwq [address] Work Phone: 03-26-2021 11:43-0500 Body weight 116.75 kg Faustino Tellez Work Phone: SN-FDYJT-Zhpqfvaep [address] Work Phone: 03-26-2021 11:43-0500 Diastolic blood pressure 68 mm[Hg] Fuastino Tellez Work Phone: GS-AIPFF-Wizbdlhnu [address] Work Phone: 03-26-2021 11:43-0500 Systolic blood pressure 120 mm[Hg] Faustino Tellez Work Phone: FR-BAHJQ-Wmqbgfpzn [address] Work Phone: 03-26-2021 11:43-0500 0 1 Faustino Tellez Work Phone: MM-VAIKW-Fwwvbreju [address] Work Phone: Comment on above: GRAV PARA [facility] 01-29-2021 14:56-0400 Body height 179.07 cm Faustino Tellez Work Phone: XX-CGTPD-Vqeymeajw [address] Work Phone: 01-29-2021 14:56-0400 Body mass index (BMI) [Ratio] 35.01 kg/m2 Faustino Tellez Work Phone: UM-VBSZV-Ldnbdnrdu [address] Work Phone: 01-29-2021 14:56-0400 Body surface area Derived from formula 2.3 m2 Faustino Tellez Work Phone: OX-XCSHM-Ehadavonf [address] Work Phone: 01-29-2021 14:56-0400 Body weight 112.27 kg Faustino Tellez Work Phone: SB-IUZQG-Qmwzbttap [address] Work Phone: 01-29-2021 14:56-0400 Diastolic blood pressure 62 mm[Hg] Faustino Tellez Work Phone: GL-MMINX-Uflkjiiqr [address] Work Phone: 01-29-2021 14:56-0400 Systolic blood pressure 102 mm[Hg] Faustino Tellez Work Phone: DV-DORAA-Ssxgdqzcw [address] Work Phone: 01-29-2021 14:56-0400 0 1 Faustino Tellez Work Phone: TU-PRGJO-Mlwbnoznk [address] Work Phone: Comment on above: GRAV PARA [facility] 12-18-2020 09:10-0400 Body height 179.07 cm Faustino Tellez Work Phone: [employer] [address] [place] Work Phone: 12-18-2020 09:10-0400 Body mass index (BMI) [Ratio] 34.55 kg/m2 Faustino Tellez [facility] [address] [place] Work Phone: 12-18-2020 09:10-0400 Body surface area Derived from formula 2.28 m2 Faustino Tellez Work Phone: [place] [address] [place] Work Phone: 12-18-2020 09:10-0400 Body temperature 97.5 [degF] Faustino Tellez Work Phone: [place] [address] [place] Work Phone: 12-18-2020 09:10-0400 Body weight 110.8 kg Faustino Tellez Work Phone: [address] Work Phone: 12-18-2020 09:10-0400 Diastolic blood pressure 82 mm[Hg] Faustino Tellez Work Phone: [address] Work Phone: 12-18-2020 09:10-0400 Systolic blood pressure 120 mm[Hg] Faustino Tellez Work Phone: [address] Work Phone: 07-27-2019 12:11-0400 BMI (Body Mass Index) 35.65 kg/m2 Caty Altamirano [facility] Work Phone: 07-27-2019 12:11-0400 Body Temperature 97.11 [degF] Caty Altamirano [facility] Work Phone: 07-27-2019 12:11-0400 Body weight 114.3 kg Caty Altamirano [facility] Work Phone: 07-27-2019 12:11-0400 BP Diastolic 68 mm[Hg] [facility] Work Phone: Comment on above: Location: E; 07-27-2019 12:11-0400 BP Systolic 122 mm[Hg] [facility] Work Phone: Comment on above: Location: RUE; 07-27-2019 12:11-0400 BSA (Body Surface Area) 2.31 m2 [facility] Work Phone: 07-27-2019 12:11040 Height 179.07 cm [facility] Work Phone: 07-27-2019 12:11-0400 Pulse (Heart Rate) 84 /min [facility]y [facility] Work Phone: 07-27-2019 12:110400 99 1 [facility] Work Phone: Comment on above: 2-20 Stature Percentile 2-20 Weight Percenti le 07-27-2019 12:040 97 1 [facility] Work Phone: Comment on above: BMI Percentile Encounters Encounter Date Encounter Type Care Provider Facility Start: 01-16-2025 ambulatory Health Risk Assessment Facility:[facility] Start: 12-28-2024 End: 12-28-2024 Refill Анна C Sheets DO Work Phone: [facility] Comment on above: Refill Request Start: 09-21-2024 End: 09-26-2024 Refill Анна C Sheets DO Work Phone: [facility] Comment on above: Refill Request Start: 09-06-2024 End: 09-06-2024 Patient encounter procedure Juan Mcdermott OD Work Phone: Optometry Comment on above: Myopia of both eyes (Primary Dx) Start: 09-06-2024 End: 09-06-2024 ambulatory АННА C SHEETS Facility:[facility] Start: 08-08-2024 End: 08-08-2024 Patient encounter procedure Delroy Gross APRN-MANUFACTURING AREA MANAGER Work Phone: [facility] Work Phone: Start: 08-08-2024 End: 08-08-2024 Periodic preventive med est patient 18-39 yrs Delroy Gross APRN-MANUFACTURING AREA MANAGER Work Phone: [facility] Comment on above: Well woman exam with routine gynecological exam (Primary Dx); Vulvodynia Start: 08-08-2024 End: 08-08-2024 ambulatory [facility] Start: 08-08-2024 End: 08-08-2024 Encounter for gynecological examination (general) (routine) without abnormal findings [facility] Start: 03-23-2024 End: 03-23-2024 Refill Анна C Sheets DO Work Phone: [facility] Comment on above: Refill Request Start: 01-14-2024 End: 01-14-2024 Patient encounter procedure Анна C Sheets DO Work Phone: [facility] Comment on above: Anxiety with depress ion (Primary Dx); Bacterial sinusitis; Encounter for immunization; Obesity, Class II, BMI 35-39.9 Start: 01-14-2024 End: 01-14-2024 ambulatory АННА C SHEETS [facility] Start: 12-14-2023 End: 12-14-2023 Refill Анна C Sheets DO Work Phone: [facility] Comment on above: Refill Request Start: 09-22-2023 Telephone encounter Анна C Sheets DO Work Phone: [facility] Comment on above: Lab Orders Start: 09-02-2023 Refill Анна C She ets DO Work Phone: [facility] Comment on above: Refill Request Start: 07-14-2023 End: 07-14-2023 Patient encounter procedure Анна C Sheets DO Work Phone: [facility] Comment on above: Anxiety with depress ion (Primary Dx); Obesity, Class II, BMI 35-39.9 Start: 07-14-2023 End: 07-14-2023 ambulatory АННА C SHEETS Facility[facility] Start: 06-20-2023 End: 06-20-2023 ambulatory АННА C SHEETS Facility:[facility] Start: 06-18-2023 Telephone encounter Анна C Sheets DO Work Phone: [facility] Comment on above: Lab Orders Start: 06-16-2023 End: 06-16-2023 Patient encounter procedure Анна López DO Work Phone: [facility] Comment on above: Well adult exam ([facility] raven Dx); Other fatigue; Anxiety with depression; Pelvic floor dysfunction; Screening for blood disease; Screening for endocrine, metabolic and immunity disorder; Screening cholesterol level; Obesity, Class II, BMI 35-39.9; Encounter for immunization Start: 06-16-2023 End: 06-16-2023 Patient encounter status Анна López DO Work Phone: [facility] Work Phone: Start: 06-16-2023 End: 06-16-2023 ambulatory АННА LÓPEZ Facility:[facility] Start: 06-16-2023 Encounter for genera l adult medical examination without abnormal findings АННА LÓPEZ [facility] Start: 06-05-2023 End: 06-05-2023 Patient encounter procedure Delroy Gross MACHINE COIL ASSEMBLER-MANUFACTURING AREA MANAGER Work Phone: [facility] Work Phone: Start: 06-05-2023 End: 06-05-2023 Periodic preventive med est patient 18-39 yrs Delroy Gross MACHINE COIL ASSEMBLER-MANUFACTURING AREA MANAGER Work Phone: [facility] Comment on above: Well woman exam with routine gynecological exam (Primary Dx); Pelvic pain; Vulvodynia; Lichen sclerosus Start: 12-11-2022 AUDIT Faustino Tellez [facility] Work Phone: Start: 08-25-2022 AUDIT Faustino Tellez MG-[facility] Work Phone: Start: 04-08-2022 AUDIT Faustino Tellez [facility] Work Phone: Start: 04-07-2022 ambulatory Delroy Kim cility:[id number] Start: 09-10-2021 Office outpatient vi sit 15 minutes Faustino Tellez Work Phone: OV-QBNSK-Qvpbljtobae 300 Work Phone: Start: 09-10-2021 ambulatory Delroy Kim cility:[id number] Start: 07-09-2021 Chart Update Faustino Richard r Work Phone: [facility] DO Work Phone: Start: 07-09-2021 Office outpatient vi sit 15 minutes Faustino Tellez Work Phone: [facility] Work Phone: Start: 07-09-[address] JOSEF Musa acility:[id number] Start: 05-28-2021 Office outpatient vi sit 15 minutes Faustino Tellez Work Phone: [id number]-WNTBA-Nsycaanjoqr 300 Work Phone: Start: 05-28-2021 ambulatory Delroy Gross Fa cility:[id number] Start: 04-16-2021 AUDIT Faustino Flaquita Garayeliza r Work Phone: [facility] Work Phone: Start: 04-14-2021 Chart Update Faustino Richard r Work Phone: [facility] Work Phone: Start: 04-09-2021 Chart Update Faustino Richard r Work Phone: [facility] Work Phone: Start: 04-08-2021 Office consultation new/estab patient 60 min Faustino Tellez Work Phone: [facility] Work Phone: Start: 04-08-[address] JOSEF Musa acility:[id number] Start: 04-01-2021 Chart Update Faustino rubio Work Phone: KI-IEHOP-Bptxptxbxbz 300 Work Phone: Start: 02-02-2021 Chart Update Faustino rubio Work Phone: FS-FRMLN-Pyoukancmuv 300 Work Phone: Start: 01-29-2021 Office outpatient vi sit 25 minutes Faustino Tellez Work Phone: [id number]-Plypngamrju 300 Work Phone: Start: 12-18-2020 Office outpatient vi sit 10 minutes Faustino Tellez Work Phone: [facility] [address] [place] Work Phone: Start: 07-27-2019 Patient encounter procedure Caty Altamirano [facility] Work Phone: Start: 07-05-2018 End: 07-06-2018 Patient encounter procedure Caty Altamirano Facility:[facility] Start: 04-30-2018 End: 05-01-2018 Patient encounter procedure Michael Sanchez Facility:[facility] Procedures Date Procedure Procedure Detail Performing Clinician Start: 01-14-2024 MENINGOCOCCAL B VACC INE (BEXSERO) Анна Lucas Sheets DO Work Phone: Start: 06-16-2023 INFLUENZA VACCINE, A GE 6 MO - 64 YR, QUADRIVALENT (AFLURIA, FLULAVAL, FLUZONE) Анна C Sheets DO Work Phone: Arthroscopy of knee Caty cooney Comment on above: right; Tympanotomy Caty Altamirano Plan of Treatment Date Care Activity Detail Author Start: 08-31-2049 Zoster Vaccines (1 o f 2) Zoster Vaccines (1 of 2) [facility] Start: 09-04-2030 DTaP/Tdap/Td Vaccine s (8 - Td or Tdap) DTaP/Tdap/Td Vaccines (8 - Td or Tdap) [facility] Start: 09-04-2030 Urine microalbumin profile DTaP,Tdap,Td Vaccine (8 - Td or Tdap) [facility] Start: 09-07-2025 End: 09-07-2025 Patient encounter procedure 09/07/2025 8:00 AM EDT Office Visit [facility] [address] [place] [address] Juan Mcdermott, OD [address] [place], [place] [id number] Eye Exam - Contact Lens Exam ( [facility] - exam / [facility] - materials) [facility] Comment on above: Eye Exam - Contact L ens Exam ( [facility] - exam / [facility] - materials) Start: 08-09-2025 Yearly Adult Physical Yearly Adult P [facility] Start: 08-08-2025 End: 08-08-2025 Patient encounter procedure 08/08/2025 2:20 PM EDT Office Visit [facility] [address] [facility] [address] [place] [id number] Delroy Gross, MACHINE COIL ASSEMBLER-MANUFACTURING AREA MANAGER [address] [place], [place] [id number] [facility] Start: 01-13-2025 Covid-19 Vaccine ( season) Covid-19 Vaccine ( season) [facility] Comment on above: Postponed from 12/26 (Declined at this time) Start: 01-13-2025 Covid-19 Vaccine ( season) Covid-19 Vaccine ( season) [facility] Comment on above: Postponed from 12/26 (Declined at this time) Start: 12-28-2024 End: 03-29-2025 Hepatic function 2000 panel - Serum or Plasma HEPATIC FUNCTION PNL Lab Routine Anxiety with depression Expected: 12/28/2024, Expires: 03/29/2025 [facility] Work Phone: Comment on above: Expected: 12/28/2024 , Expires: 03/29/2025 Start: 12-26-2024 Influenza vaccination Influenza Vacc ine (#1) [facility] Start: 09-23-2024 End: 12-23-2024 CBC panel - Blood by Automated count COMPLETE BLOOD COUNT Lab Routine Anxiety with depression Expected: 09/23/2024, Expires: 12/23/2024 [facility] Work Phone: Comment on above: Expected: 09/23/2024 , Expires: 12/23/2024 Start: 09-23-2024 End: 12-23-2024 Comprehensive metabolic 2000 panel - Serum or Plasma COMPREHENSIVE METABOLIC PANEL Lab Routine Anxiety with depression Expected: 09/23/2024, Expires: 12/23/2024 [facility] Comment on above: Expected: 09/23/2024 , Expires: 12/23/2024 Start: 08-08-2024 End: 08-08-2025 TSH with reflex to Free T4 if abnormal TSH with reflex to Free T4 if abnormal Lab Routine Well woman exam with routine gynecological exam Expected: 08/08/2024 (Approximate), Expires: 08/08/2025 [facility] Service Area Work Phone: Comment on above: Expected: 08/08/2024 (Approximate), Expires: 08/08/2025 Start: 07-13-2024 GC (Gonorrhea) Screening (18-24) GC (Gonorrhea) Screening (18-24) [facility] Comment on above: Postponed from 08/31 (Declined at this time) Start: 07-13-2024 Hepatitis C screening Hepatitis C Nj maura [facility] Comment on above: Postponed from 08/31 (Declined at this time) Start: 07-13-2024 HIV screening HIV Screening [facility] Comment on above: Postponed from 08/31 (Declined at this time) Start: 07-13-2024 Screening for Chlamy shaina trachomatis Chlamydia Screening (18-24) [facility] Comment on above: Postponed from 08/31 (Declined at this time) Start: 06-16-2024 Covid-19 Vaccine () Covid-19 Vaccine () [facility] Comment on above: Postponed from 12/26 (Declined at this time) Start: 01-14-2024 End: 01-14-2024 Patient encounter procedure 01/14/2024 9:00 AM EDT Office Visit [facility] [address] [place] [address] Анна López DO [address] [place] [address] 6 month follow up anxiety depression [facility] Comment on above: 6 month follow up an xiety depression Start: 12-27-2023 COVID-19 Vaccine () COVID-19 Vaccine () [facility] Start: 12-27-2023 Influenza vaccination Influenza Vacc ine (#1) [facility] Start: 09-23-2023 End: 12-23-2023 Lipid 1996 panel - Serum or Plasma LIPID PANEL BASIC Lab Routine Hyperlipidemia, mixed Expected: 09/23/2023, Expires: 12/23/2023 [facility] Work Phone: Comment on above: Expected: 09/23/2023 , Expires: 12/23/2023 Start: 06-18-2023 End: 09-17-2023 BLOOD TB SCREEN BLOOD TB SCREEN Lab Routine Screening-pulmonary TB Expected: 06/18/2023, Expires: 09/17/2023 [facility] Work Phone: Comment on above: Expected: 06/18/2023 , Expires: 09/17/2023 Start: 06-18-2023 End: 09-17-2023 TOX SCREEN ROUT UR TOX SCREEN ROUT UR Lab Routine Encounter for drug screening Expected: 06/18/2023, Expires: 09/17/2023 [facility] Work Phone: Comment on above: Expected: 06/18/2023 , Expires: 09/17/2023 Start: 04-07-2023 Patient encounter procedure ANNUAL, Provider: Delroy Gross, Status: Pen, Time: 3:40 PM [id number]-Opxjyzwucsj 300 Work Phone: Start: 12-26-2022 COVID-19 Vaccine ( season) COVID-19 Vaccine ( season) [facility] Start: 12-26-2022 Influenza vaccination Influenza Vacc ine (#1) [facility] Start: 03-14-2022 FUV, Provider: Delroy Gross, Status: Pen, Time: 1:00 PM FUV, Provider: Delroy Gross, Status: Pen, Time: 1:00 PM QS-ERXMK-Xclhxwvrahi 300 Work Phone: Start: 01-09-2022 FUV, Provider: Josef Plata, Status: Pen, Time: 12:30 PM FUV, Provider: Josef Plata, Status: Pen, Time: 12:30 PM [facility] Work Phone: Start: 09-10-2021 FUV, Provider: Delroy Gross, Status: Pen, Time: 1:00 PM FUV, Provider: Delroy Gross, Status: Pen, Time: 1:00 PM UA-WUXMN-Bhahhxyvhjd 300 Work Phone: Start: 07-09-2021 FUV, Provider: Josef Plata, Status: Pen, Time: 12:30 PM FUV, Provider: Josef Plata, Status: Pen, Time: 12:30 PM [facility] Work Phone: Start: 05-28-2021 FUV, Provider: Delroy Gross, Status: Pen, Time: 3:00 PM FUV, Provider: Delroy Gross, Status: Pen, Time: 3:00 PM [facility] Work Phone: Start: 04-29-2021 FUV, Provider: Delroy Gross, Status: Pen, Time: 3:20 PM FUV, Provider: Delroy Gross, Status: Pen, Time: 3:20 PM NC-ZVFAX-Qreznyczqof 300 Work Phone: Start: 04-08-2021 NPV, Provider: Josef Plata, Status: Pen, Time: 2:45 PM NPV, Provider: Josef Plata, Status: Pen, Time: 2:45 PM WZ-TPNRP-Cnyutwqdmeb 300 Work Phone: Start: 03-26-2021 FUV, Provider: Delroy Gross, Status: Pen, Time: 11:40 AM FUV, Provider: Delroy Gross, Status: Pen, Time: 11:40 AM GH-DPWKZ-Fjcpkaqgfhd 300 Work Phone: Start: 01-21-2021 [id number], Provider: Thao Tse, Status: Pen, Time: 1:15 PM [id number], Provider: Thao Tse, Status: Pen, Time: 1:15 PM [facility] Work Phone: Start: 08-31-2020 Screening for malign ant neoplasm of cervix [facility] Start: 08-31-2017 GC (Gonorrhea) Screening (18-24) GC (Gonorrhea) Screening (18-24) [facility] Start: 08-31-2017 Hepatitis C screening Hepatitis C [facility] Start: 08-31-2017 HIV screening HIV Screening [facility] Start: 08-31-2017 Screening for Chlamy shaina trachomatis Chlamydia Screening (18-24) [facility] Start: 12-23-2016 Meningococcal B Vaccine: Consider Based On Risk (2 of 2 - Risk Bexsero 2-dose series) Meningococcal B Vaccine: Consider Based On Risk (2 of 2 - Risk Bexsero 2-dose series) [facility] Start: 08-31-2013 Peds To Adult Transition Annual Assessment Peds To Adult Transition Annual Assessment [facility] Start: 2011 Peds To Adult Transition Initial Discussion Peds To Adult Transition Initial Discussion [facility] Start: 1999 HIV screening HIV Screening [facility] Start: 1999 Lipid panel Lipid Panel [facility] Start: 1999 Yearly Adult Physical Yearly Adult P hysical [facility] Im adm prq id subq/i m njxs 1 vaccine IMADM PRQ ID SUBQ/IM NJXS 1 VACC Immunization/Injection Routine Encounter for immunization Ordered: 06/16/2023 [facility] Work Phone: Comment on above: Ordered: 06/16/2023 Im adm prq id subq/i m njxs 1 vaccine IMADM PRQ ID SUBQ/IM NJXS 1 VACC Immunization/Injection Routine Encounter for immunization Ordered: 01/14/2024 [facility] Work Phone: Comment on above: Ordered: 01/14/2024 [facility] Immunizations Immunization Date Immunization Notes Care Provider Fa cili 01-14-2024 influenza, seasonal, injectable Анна Sheets DO Work Phone: [facility] 01-14-2024 meningococcal B vacc ine, recombinant, OMV, adjuvanted Анна Sheets DO Work Phone: [facility] 01-14-2024 influenza virus vacc ine, unspecified formulation Анна Sheets DO Work Phone: [facility] 06-16-2023 influenza, injectabl e, quadrivalent, contains preservative Анна Sheets DO Work Phone: [facility] 06-16-2023 influenza virus vacc ine, unspecified formulation Анна Sheets DO Work Phone: [facility] 09-04-2020 tetanus toxoid, redu mirella diphtheria toxoid, and acellular pertussis vaccine, adsorbed Faustino Tellez Work Phone: [facility] 07-12-2020 [employer] COVI D-19 Vacc 30 MCG/0.3ML Intramuscular Suspension Faustino Tellez Work Phone: [facility] 01-06-2020 influenza nasal, unspecified formulation Анна Sheets DO Work Phone: [facility] 01-06-2020 influenza, injectabl e, quadrivalent, preservative free Faustino Tellez Work Phone: [facility] 01-06-2020 influenza virus vacc ine, unspecified formulation Delroy BENDER Work Phone: [facility] Work Phone: 02-24-2019 influenza nasal, unspecified formulation Анна Sheets DO Work Phone: [facility] 02-24-2019 influenza virus vacc ine, unspecified formulation Faustino M Rosalinda Work Phone: [address] Work Phone: Comment on above: Series: 02-24-2019 Influenza, injectabl e, [facility] [place] Can[facility], quadrivalent with preservative Анна Sheets DO Work Phone: [facility] 02-24-2019 influenza, seasonal, injectable [facility] 11-25-2016 meningococcal B vacc ine, recombinant, OMV, adjuvanted [facility] Comment on above: Series: 10-21-2016 meningococcal polysaccharide (groups A, C, Y and W-135) diphtheria toxoid conjugate vaccine (MCV4P) [facility] Comment on above: Series: 10-04-2013 human papilloma viru s vaccine, quadrivalent [facility] Comment on above: Series: 06-01-2013 human papilloma viru s vaccine, quadrivalent [facility] Comment on above: Series: 03-23-2013 human papilloma viru s vaccine, quadrivalent [facility] Comment on above: Series: 03-23-2013 influenza nasal, unspecified formulation Анна Sheets DO Work Phone: [facility] 03-23-2013 influenza virus vacc ine, unspecified formulation Faustino Sams Rosalinda Work Phone: [address] Work Phone: Comment on above: Series: 03-23-2013 influenza, seasonal, injectable [facility] 03-23-2013 influenza, seasonal, injectable, preservative free Анна Sheets DO Work Phone: [facility] 06-23-2011 hepatitis A vaccine, pediatric/adolescent dosage, 2 dose schedule Анна Sheets DO Work Phone: [facility] 06-23-2011 hepatitis A vaccine, unspecified formulation [facility] Comment on above: Series: 11-06-2010 hepatitis A vaccine, pediatric/adolescent dosage, 2 dose schedule Анна López DO Work Phone: [facility] 11-06-2010 hepatitis A vaccine, unspecified formulation [facility] Comment on above: Series: 11-06-2010 meningococcal polysaccharide (groups A, C, Y and W-135) diphtheria toxoid conjugate vaccine (MCV4P) [facility] Comment on above: Series: 11-06-2010 tetanus toxoid, redu mirella diphtheria toxoid, and acellular pertussis vaccine, adsorbed [facility] Comment on above: Series: 11-06-2010 varicella virus vaccine [facility] Comment on above: Series: 09-27-2003 diphtheria, tetanus toxoids and acellular pertussis vaccine [facility] Comment on above: Series: 09-27-2003 measles, mumps and rubella virus vaccine [facility] Comment on above: Series: 09-27-2003 poliovirus vaccine, inactivated [facility] Comment on above: Series: 12-01-2000 diphtheria, tetanus toxoids and acellular pertussis vaccine [facility] Comment on above: Series: 12-01-2000 pneumococcal conjuga te vaccine, 13 valent [facility] Comment on above: Series: 12-01-2000 pneumococcal conjuga te vaccine, 7 valent Анна López DO Work Phone: [facility] 12-01-2000 varicella virus vaccine [facility] Comment on above: Series: 2000 haemophilus influenz ae type b conjugate and Hepatitis B vaccine Faustino Tellez Work Phone: [facility] 2000 haemophilus influenz ae type b vaccine, PRP-OMP conjugate [facility] Comment on above: Series: 2000 hepatitis B vaccine, adult dosage [facility] Comment on above: Series: 2000 measles, mumps and rubella virus vaccine [facility] Comment on above: Series: 08-29-2000 pneumococcal conjuga te vaccine, 13 valent Faustino Tellez Work Phone: [facility] Comment on above: Series: 08-29-2000 pneumococcal conjuga te vaccine, 7 valent Анна Sheets DO Work Phone: [facility] 08-25-2000 pneumococcal conjuga te vaccine, 13 valent Caty Altamirano [facility] Work Phone: 06-05-2000 pneumococcal conjuga te vaccine, 13 valent Caty Adarsh [facility] Comment on above: Series: 06-05-2000 pneumococcal conjuga te vaccine, 7 valent Анна Sheets DO Work Phone: [facility] 04-08-2000 diphtheria, tetanus toxoids and acellular pertussis vaccine [facility] Comment on above: Series: 04-08-2000 diphtheria, tetanus toxoids and acellular pertussis vaccine, unspecified formulation Анна Sheets DO Work Phone: [facility] 04-08-2000 poliovirus vaccine, inactivated [facility] Comment on above: Series: 03-13-2000 pneumococcal conjuga te vaccine, 13 valent [facility] Comment on above: Series: 03-13-2000 pneumococcal conjuga te vaccine, 7 valent Анна Sheets DO Work Phone: [facility] 01-07-2000 diphtheria, tetanus toxoids and acellular pertussis vaccine [facility] Comment on above: Series: 01-07-2000 haemophilus influenz ae type b vaccine, PRP-OMP conjugate [facility] Comment on above: Series: 01-07-2000 hepatitis B vaccine, adult dosage [facility] Comment on above: Series: 01-07-2000 poliovirus vaccine, inactivated [facility] Comment on above: Series: 1999 diphtheria, tetanus toxoids and acellular pertussis vaccine [facility] Comment on above: Series: 1999 haemophilus influenz ae type b conjugate and Hepatitis B vaccine Faustino Tellez Work Phone: [facility] 1999 haemophilus influenz ae type b vaccine, PRP-OMP conjugate [facility] Comment on above: Series: 1999 hepatitis B vaccine, adult dosage [facility] Comment on above: Series: 1999 poliovirus vaccine, inactivated [facility] Comment on above: Series: Payers Date Payer Category Payer Self-pay 2022 Managed Care (Private) [employer] [facility] [id number] 2022 Private Health Insurance [id number] 2022 Private Health Insurance [id number] 2022 Unknown [id number] 2017 Unknown 1999 Unknown [id number] 1999 Unknown [id number] [id number] 1999 Unknown [id number] [id number] 1999 Unknown [id number] [id number] 1999 Unknown [id number] [id number] 1999 Unknown [id number] [id number] 1999 Unknown [id number] 1969 Unknown [id number] [id number] 1969 Unknown [id number] Unknown [id number] Unknown [id number] Unknown [id number] Social History Date Type Detail Facility Start: 06-05-2023 End: 06-16-2023 Never a smoker Never a smoker [facility] Work Phone: Start: 06-05-2023 End: 06-16-2023 Tobacco smoking status NHIS Never smoked tobacco [facility] Work Phone: Start: 06-05-2023 End: 06-16-2023 Tobacco use and exposure Smokeless tobacco non-user [facility] Work Phone: Start: 06-05-2023 End: 09-06-2024 Alcohol intake Current drinker of alcohol (finding) [facility] Work Phone: Start: 06-05-2023 End: 06-16-2023 Tobacco use panel [facility] Work Phone: Start: 06-05-2023 Alcohol Comment rare [facility] Work Phone: Start: 1999 Sex Assigned At Not on file [facility] Work Phone: Start: 05-26-2023 End: 08-08-2024 Exposure to SARS-CoV-2 (event) Not sure [facility] Start: 03-28-2012 Adult Depression Screening Assessment 3 [facility] Work Phone: Start: 06-16-2023 Alcohol Comment socially [facility] NEGATED: Highlighted row - - [facility] Work Phone: Functional Status Date Assessment Result Facility NEGATED: Highlighted row Functional performance Functional status health issues are not documented Disease [facility] Work Phone: Mental Status Date Assessment Result Facility NEGATED: Highlighted row Cognitive function [Interpretation] Cognitive status health issues are not documented Disease [facility] Work Phone: Clinical Notes 01-29-2021 to 12-28-2024 Telephone Encounter - Raven Garcias MA - 12/28/2024 3:33 PM EDTTelephone Encounter - Raven Garcias MA - 12/28/2024 3:33 PM EDTTelephone Encounter - Анна López DO - 12/28/2024 1:01 PM EDT Note Date & Type Note Facility 12-28-2024 Telephone encounter Note Pt. Notified. Raven Garcias MA [facility] 12-28-2024 Miscellaneous Notes Pt. Notified. Raven Garcias MA Please notify pt they are due for blood work - order attached Анна López DO Patient's mother phones requesting refills as follows: Last seen 01/14/24 . Last refill 09/23/24 . No future appointments. Requested Prescriptions Pending Prescriptions Disp Refills amitriptyline (ELAVIL) 25 mg tablet 90 tablet 0 Sig: Take 1 tablet by mouth daily at bedtime. Please review and advise. Angle Brar MA documented in this encounter [facility] 12-28-2024 Telephone encounter Note Please notify pt they are due for blood work - order attached Анна Sheets, DO [facility] 12-28-2024 Telephone encounter Note Patient's mother phones requesting refills as follows: Last seen 01/14/24 . Last refill 09/23/24 . No future appointments. Requested Prescriptions Pending Prescriptions Disp Refills amitriptyline (ELAVIL) 25 mg tablet 90 tablet 0 Sig: Take 1 tablet by mouth daily at bedtime. Please review and advise. Angle Brar MA [facility] 09-26-2024 Telephone encounter Note Patient notified. Raven Garcias MA [facility] 09-26-2024 Miscellaneous Notes Patient notified. Raven Garcias MA Please notify pt they are due for blood work - order attached Аннаdebra López DO documented in this encounter [facility] 09-23-2024 Telephone encounter Note Please notify pt they are due for blood work - order attached Анна Sheets, DO [facility] 09-06-2024 Note HNO ID: [id number] Author: JUAN MCDERMOTT OD Service: ? Author Type: DRY CLEANER HAND Type: Progress Notes Filed: 09/06/2024 08:24 Note Text: ASSESSMENT/PLAN: 1. Myopia of both eyes - ICD9: 367.1, ICD10: H52.13 Updated spectacle and contact lens prescriptions. Educated patient not to sleep or swim in contact lenses, and to immediately remove lenses with increase in pain, redness, or discharge. Return to clinic with changes in vision, otherwise, monitor yearly. Juan Mcdermott OD September 06, 2024 8:24 AM [facility] 09-06-2024 History of Present illness Narrative ASSESSMENT/PLAN: 1. Myopia of both eyes - ICD9: 367.1, ICD10: H52.13 Updated spectacle and contact lens prescriptions. Educated patient not to sleep or swim in contact lenses, and to immediately remove lenses with increase in pain, redness, or discharge. Return to clinic with changes in vision, otherwise, monitor yearly. Juan Mcdermott OD September 06, 2024 8:24 AM documented in this encounter [facility] 08-08-2024 History of Present illness Narrative Subjective Patient ID: Evelina Sam is a 23 y.o. female who presents for Annual Exam. HPI Pt presents for annual exam Concerns: noticing some hot flashes h/o LS and vulvodynia h/o PCOS and has a prescription for progesterone if amenorrheic for 3 months current regiment: No longer using clobetasol; estradiol + testosterone 1 time/week, we initially tried vaginal estradiol cream but she had AE and prefers the compounded vaginal hygiene: water only with hand held shower piece amitriptyline 10mg at HS LMP: LMP 3/6; 6-10 weeks between cycles days of bleedin PMS: none dysmenorrhea: none She has never been sexually active by choice Contraception: none Vaginal hygiene: water urinary incontinence: none has she had the HPV vaccine? 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 Constitutional: Appearance: Normal appearance. Cardiovascular: Rate and Rhythm: Normal rate and regular rhythm. Heart sounds: Normal heart sounds. Pulmonary: Effort: Pulmonary effort is normal. Breath sounds: Normal breath sounds. Chest: Breasts: Right: Normal. Left: Normal. Abdominal: Tenderness: There is no abdominal tenderness. Genitourinary: General: Normal vulva. Exam position: Lithotomy position. Labia: Right: No lesion. Left: No lesion. Vagina: Normal. Cervix: Normal. Comments: 100% reabsorption of the labia minora No whitening or lesions Skin: General: Skin is warm and dry. Neurological: Mental Status: She is alert. Psychiatric: Attention and Perception: Attention normal. Mood and Affect: Mood normal. Speech: Speech normal. Behavior: Behavior normal. Thought Content: Thought content normal. Cognition and Memory: Cognition and memory normal. Judgment: Judgment normal. Assessment/Plan Diagnoses and all orders for this visit: Well woman exam with routine gynecological exam - TSH with reflex to Free T4 if abnormal; Future Vulvodynia - pharmacy compounding accessory misc; 0.5 mL 3 (three) times a week. Apply a thin layer around the vaginal opening 2-3 times per week - amitriptyline (Elavil) 10 mg tablet; Take 1 tablet (10 mg) by mouth once daily at bedtime. Will not resume the clobetasol, I am not convinced it is LS d/t lack of skin color changes and she hasn't used the clobetasol for months, will continue to monitor She declined the pap, had a previous very painful speculum exam for a pap with a different provider YULIA Castaneda 08/08/24 2:01 PM documented in this encounter [facility] Work Phone: 03-23-2024 Telephone encounter Note Patient's father requesting refills as follows: Last Office Visit 01/14/24 NOV none. Last Refill 01/14/24. Requested Prescriptions Pending Prescriptions Disp Refills amitriptyline (ELAVIL) 25 mg tablet 90 tablet 1 Sig: Take 1 tablet by mouth daily at bedtime. Please review and advise. Angelina Martinez MA [facility] 03-23-2024 Miscellaneous Notes Patient's father requesting refills as follows: Last Office Visit 01/14/24 NOV none. Last Refill 01/14/24. Requested Prescriptions Pending Prescriptions Disp Refills amitriptyline (ELAVIL) 25 mg tablet 90 tablet 1 Sig: Take 1 tablet by mouth daily at bedtime. Please review and advise. Angelina Martinez MA documented in this encounter [facility] 01-14-2024 Note HNO ID: [id number] Author: АННА LÓPEZ, DO Service: ? Author Type: Physician Type: Progress Notes Filed: 01/14/2024 13:09 Note Text: Subjective HPI Pt is here for f/u for depression and anxiety Mood is well controlled on elavil 25 mg daily She has had a cough productive of green sputum, chest tightness for 4 weeks She was taking allergy relief medication, now is taking robitussin She has sinus drainage, ear pain that started today, no sore throat, no nausea or vomiting ALLERGIES Allergen Reactions Cephalosporins Hives Current Outpatient Medications Medication Sig Dispense Refill amitriptyline (ELAVIL) 25 mg tablet Take 1 tablet by mouth daily at bedtime. 90 tablet 0 multivitamin tablet Take 1 tablet by mouth once daily. estradiol (E2) emollient cream 0.2 mg/gram (CPD) Use 0.5 g vaginally three times a week. 20 g clobetasol (TEMOVATE) 0.05 % ointment Apply to vulva 1-2 times/week 45 g 0 No current facility-administered medications for this visit. ACTIVE PROBLEM LIST Obesity, Class II, Bmi 35-39.9 Anxiety With Depression Pelvic Floor Dysfunction Social History Tobacco Use Smoking status: Never Smokeless tobacco: Never Vaping Use Vaping status: Never Used Substance Use Topics Alcohol use: Yes Comment: socially Drug use: Never Family History Problem Relation Age of Onset Diabetes Mother Hypertension Mother Hypertension Father Hyperlipidemia Father other (hypertrophic cardiomyopathy) Father other (other) Brother Melanoma Maternal Grandmother Hypertension Maternal Grandmother Melanoma Maternal Grandfather Hypertension Maternal Grandfather Hypertension Paternal Grandmother Diabetes Paternal Grandmother Hypertension Paternal Grandfather Melanoma Maternal Aunt Reviewed past medical history, family history and surgeries. All medications and supplements were reviewed with the patient. Review of Systems Constitutional: Negative for chills, diaphoresis, fever, malaise/fatigue and weight loss. HENT: Positive for congestion. Negative for ear pain and hearing loss. Eyes: Negative for blurred vision and double vision. Respiratory: Positive for cough and sputum production. Negative for shortness of breath. Cardiovascular: Negative for chest pain, palpitations and leg swelling. Gastrointestinal: Negative for constipation, diarrhea and heartburn. Genitourinary: Negative for dysuria and frequency. Musculoskeletal: Negative for back pain, falls, joint pain and myalgias. Skin: Negative for itching and rash. Neurological: Negative for dizziness, weakness and headaches. Endo/Heme/Allergies: Does not bruise/bleed easily. Psychiatric/Behavioral: Negative for depression and substance abuse. The patient does not have insomnia. Objective BP 110/68 Pulse 81 Temp 36.6 ?C (97.9 ?F) Resp 16 Ht 180.3 cm (5' 11) Wt 123.4 kg (272 lb) SpO2 99% BMI 37.94 kg/m? Physical Exam Constitutional: Appearance: Normal appearance. She is obese. HENT: Head: Normocephalic and atraumatic. Nose: Nose normal. Mouth/Throat: Mouth: Mucous membranes are moist. Dentition: Normal dentition. Eyes: General: Lids are normal. Extraocular Movements: Extraocular movements intact. Conjunctiva/sclera: Conjunctivae normal. Pupils: Pupils are equal, round, and reactive to light. Neck: Thyroid: No thyroid mass or thyromegaly. Vascular: No carotid bruit. Trachea: Phonation normal. Cardiovascular: Rate and Rhythm: Normal rate and regular rhythm. Heart sounds: Normal heart sounds. No murmur heard. No friction rub. No gallop. Pulmonary: Effort: Pulmonary effort is normal. Breath sounds: Normal breath sounds. No wheezing or rales. Abdominal: General: Bowel sounds are normal. There is no distension. Palpations: Abdomen is soft. There is no mass. Tenderness: There is no abdominal tenderness. Musculoskeletal: General: No swelling or tenderness. Normal range of motion. Cervical back: Normal range of motion and neck supple. No edema. Lymphadenopathy: Cervical: No cervical adenopathy. Skin: General: Skin is warm and dry. Findings: No erythema or rash. Nails: There is no clubbing. Neurological: Mental Status: She is alert and oriented to person, place, and time. Cranial Nerves: No cranial nerve deficit. Motor: Motor function is intact. Coordination: Coordination normal. Gait: Gait is intact. Psychiatric: Attention and Perception: Attention normal. Mood and Affect: Mood and affect normal. Speech: Speech normal. Behavior: Behavior normal. Behavior is cooperative. Thought Content: Thought content normal. Cognition and Memory: Cognition and memory normal. Judgment: Judgment normal. ASSESSMENT/PLAN: 1. Anxiety with depression - ICD9: 300.4, ICD10: F41.8 (primary diagnosis) Continue elavil 2. Bacterial sinusitis - ICD9: 473.9, 041.9, ICD10: J32.9, B96.89 - AZITHROMYCIN 250 MG TABLET 3. Encounter for immunizat (more content not included)... [facility] 01-14-2024 History of Present illness Narrative Subjective HPI Pt is here for f/u for depression and anxiety Mood is well controlled on elavil 25 mg daily She has had a cough productive of green sputum, chest tightness for 4 weeks She was taking allergy relief medication, now is taking robitussin She has sinus drainage, ear pain that started today, no sore throat, no nausea or vomiting ALLERGIES Allergen Reactions Cephalosporins Hives Current Outpatient Medications Medication Sig Dispense Refill amitriptyline (ELAVIL) 25 mg tablet Take 1 tablet by mouth daily at bedtime. 90 tablet 0 multivitamin tablet Take 1 tablet by mouth once daily. estradiol (E2) emollient cream 0.2 mg/gram (CPD) Use 0.5 g vaginally three times a week. 20 g clobetasol (TEMOVATE) 0.05 % ointment Apply to vulva 1-2 times/week 45 g 0 No current facility-administered medications for this visit. ACTIVE PROBLEM LIST Obesity, Class II, Bmi 35-39.9 Anxiety With Depression Pelvic Floor Dysfunction Social History Tobacco Use Smoking status: Never Smokeless tobacco: Never Vaping Use Vaping status: Never Used Substance Use Topics Alcohol use: Yes Comment: socially Drug use: Never Family History Problem Relation Age of Onset Diabetes Mother Hypertension Mother Hypertension Father Hyperlipidemia Father other (hypertrophic cardiomyopathy) Father other (other) Brother Melanoma Maternal Grandmother Hypertension Maternal Grandmother Melanoma Maternal Grandfather Hypertension Maternal Grandfather Hypertension Paternal Grandmother Diabetes Paternal Grandmother Hypertension Paternal Grandfather Melanoma Maternal Aunt Reviewed past medical history, family history and surgeries. All medications and supplements were reviewed with the patient. Review of Systems Constitutional: Negative for chills, diaphoresis, fever, malaise/fatigue and weight loss. HENT: Positive for congestion. Negative for ear pain and hearing loss. Eyes: Negative for blurred vision and double vision. Respiratory: Positive for cough and sputum production. Negative for shortness of breath. Cardiovascular: Negative for chest pain, palpitations and leg swelling. Gastrointestinal: Negative for constipation, diarrhea and heartburn. Genitourinary: Negative for dysuria and frequency. Musculoskeletal: Negative for back pain, falls, joint pain and myalgias. Skin: Negative for itching and rash. Neurological: Negative for dizziness, weakness and headaches. Endo/Heme/Allergies: Does not bruise/bleed easily. Psychiatric/Behavioral: Negative for depression and substance abuse. The patient does not have insomnia. Objective BP 110/68 Pulse 81 Temp 36.6 C (97.9 F) Resp 16 Ht 180.3 cm (5' 11) Wt 123.4 kg (272 lb) SpO2 99% BMI 37.94 kg/m Physical Exam Constitutional: Appearance: Normal appearance. She is obese. HENT: Head: Normocephalic and atraumatic. Nose: Nose normal. Mouth/Throat: Mouth: Mucous membranes are moist. Dentition: Normal dentition. Eyes: General: Lids are normal. Extraocular Movements: Extraocular movements intact. Conjunctiva/sclera: Conjunctivae normal. Pupils: Pupils are equal, round, and reactive to light. Neck: Thyroid: No thyroid mass or thyromegaly. Vascular: No carotid bruit. Trachea: Phonation normal. Cardiovascular: Rate and Rhythm: Normal rate and regular rhythm. Heart sounds: Normal heart sounds. No murmur heard. No friction rub. No gallop. Pulmonary: Effort: Pulmonary effort is normal. Breath sounds: Normal breath sounds. No wheezing or rales. Abdominal: General: Bowel sounds are normal. There is no distension. Palpations: Abdomen is soft. There is no mass. Tenderness: There is no abdominal tenderness. Musculoskeletal: General: No swelling or tenderness. Normal range of motion. Cervical back: Normal range of motion and neck supple. No edema. Lymphadenopathy: Cervical: No cervical adenopathy. Skin: General: Skin is warm and dry. Findings: No erythema or rash. Nails: There is no clubbing. Neurological: Mental Status: She is alert and oriented to person, place, and time. Cranial Nerves: No cranial nerve deficit. Motor: Motor function is intact. Coordination: Coordination normal. Gait: Gait is intact. Psychiatric: Attention and Perception: Attention normal. Mood and Affect: Mood and affect normal. Speech: Speech normal. Behavior: Behavior normal. Behavior is cooperative. Thought Content: Thought content normal. Cognition and Memory: Cognition and memory normal. Judgment: Judgment normal. ASSESSMENT/PLAN: 1. Anxiety with depression - ICD9: 300.4, ICD10: F41.8 (primary diagnosis) Continue elavil 2. Bacterial sinusitis - ICD9: 473.9, 041.9, ICD10: J32.9, B96.89 - AZITHROMYCIN 250 MG TABLET 3. Encounter for immunization - ICD9: V03.89, ICD10: Z23 - INFLUENZA VACCINE, AGE 6MO-64YR, TRIVALENT (AFLURIA, FLULAVAL, FLUVIRIN, FLUZONE) - MENINGOCOCCAL B VACCINE (BEXSERO) - IMADM PRQ ID SUBQ/IM NJXS 1 VACC 4. Obesity, Class II, BMI 35-39.9 - ICD9: 278.00, ICD10: E66.9 Lifestyle modification recommended Анна López DO documented in this encounter [facility] 09-23-2023 Telephone encounter Note Left message informing patient, phone number to reach the office was left for any questions or concerns. Angelina Martinez MA [facility] 09-23-2023 Miscellaneous Notes Left message informing patient, phone number to reach the office was left for any questions or concerns. Angelina Martinez MA Order attached Анна López DO ----- Message from Angelina Martinez MA sent at 06/23/2023 5:27 PM EST ----- FLPs in 3 months documented in this encounter [facility] 09-23-2023 Telephone encounter Note Order attached Анна López DO [facility] 09-22-2023 Telephone encounter Note ----- Message from Angelina Martinez MA sent at 06/23/2023 5:27 PM EST ----- FLPs in 3 months [facility] 09-02-2023 Telephone encounter Note pharmacy electronically requesting refills as follows: Last seen 07/14/23 . Last refill 06/16/23 . Requested Prescriptions Pending Prescriptions Disp Refills amitriptyline (ELAVIL) 25 mg tablet 90 tablet 0 Sig: Take 1 tablet by mouth daily at bedtime. Please review and advise. Angle Brar MA [facility] 09-02-2023 Miscellaneous Notes pharmacy electronically requesting refills as follows: Last seen 07/14/23 . Last refill 06/16/23 . Requested Prescriptions Pending Prescriptions Disp Refills amitriptyline (ELAVIL) 25 mg tablet 90 tablet 0 Sig: Take 1 tablet by mouth daily at bedtime. Please review and advise. Angle Brar MA documented in this encounter [facility] 07-14-2023 Note HNO ID: [id number] Author: АННА LÓPEZ, DO Service: ? Author Type: Physician Type: Progress Notes Filed: 07/27/2023 17:04 Note Text: Subjective The history is provided by the patient. Pt is here for f/u for depression She feels much better after increasing the dosage of amitriptyline from 10 mg to 25 mg daily She has had a dry mouth, but no other problems with the increase in dosage ALLERGIES Allergen Reactions Cephalosporins Hives Current Outpatient Medications Medication Sig Dispense Refill multivitamin tablet Take 1 tablet by mouth once daily. estradiol (E2) emollient cream 0.2 mg/gram (CPD) Use 0.5 g vaginally three times a week. 20 g amitriptyline (ELAVIL) 25 mg tablet Take 1 tablet by mouth daily at bedtime. 90 tablet 0 clobetasol (TEMOVATE) 0.05 % ointment Apply to vulva 1-2 times/week 45 g 0 No current facility-administered medications for this visit. ACTIVE PROBLEM LIST Obesity, Class II, Bmi 35-39.9 Vaginismus Anxiety With Depression Pelvic Floor Dysfunction Social History Tobacco Use Smoking status: Never Smokeless tobacco: Never Vaping Use Vaping Use: Never used Substance Use Topics Alcohol use: Yes Comment: socially Drug use: Never Family History Problem Relation Age of Onset Diabetes Mother Hypertension Mother Hypertension Father Hyperlipidemia Father other (hypertrophic cardiomyopathy) Father other (other) Brother Melanoma Maternal Grandmother Hypertension Maternal Grandmother Melanoma Maternal Grandfather Hypertension Maternal Grandfather Hypertension Paternal Grandmother Diabetes Paternal Grandmother Hypertension Paternal Grandfather Melanoma Maternal Aunt Reviewed past medical history, family history and surgeries. All medications and supplements were reviewed with the patient. Review of Systems Constitutional: Negative for chills, diaphoresis, fever, malaise/fatigue and weight loss. HENT: Negative for ear pain and hearing loss. Eyes: Negative for blurred vision and double vision. Respiratory: Negative for cough and shortness of breath. Cardiovascular: Negative for chest pain, palpitations and leg swelling. Gastrointestinal: Negative for constipation, diarrhea and heartburn. Genitourinary: Negative for dysuria and frequency. Musculoskeletal: Negative for back pain, falls, joint pain and myalgias. Skin: Negative for itching and rash. Neurological: Negative for dizziness, weakness and headaches. Endo/Heme/Allergies: Does not bruise/bleed easily. Psychiatric/Behavioral: Negative for depression and substance abuse. The patient does not have insomnia. Objective BP 114/76 Pulse 77 Temp 36.3 ?C (97.3 ?F) Resp 16 Ht 180.3 cm (5' 11) Wt 125.2 kg (276 lb) SpO2 99% BMI 38.49 kg/m? Physical Exam Constitutional: Appearance: Normal appearance. She is obese. HENT: Head: Normocephalic and atraumatic. Nose: Nose normal. Mouth/Throat: Mouth: Mucous membranes are moist. Dentition: Normal dentition. Eyes: General: Lids are normal. Extraocular Movements: Extraocular movements intact. Conjunctiva/sclera: Conjunctivae normal. Pupils: Pupils are equal, round, and reactive to light. Neck: Thyroid: No thyroid mass or thyromegaly. Vascular: No carotid bruit. Trachea: Phonation normal. Cardiovascular: Rate and Rhythm: Normal rate and regular rhythm. Heart sounds: Normal heart sounds. No murmur heard. No friction rub. No gallop. Pulmonary: Effort: Pulmonary effort is normal. Breath sounds: Normal breath sounds. No wheezing or rales. Abdominal: General: Bowel sounds are normal. There is no distension. Palpations: Abdomen is soft. There is no mass. Tenderness: There is no abdominal tenderness. Musculoskeletal: General: No swelling or tenderness. Normal range of motion. Cervical back: Normal range of motion and neck supple. No edema. Lymphadenopathy: Cervical: No cervical adenopathy. Skin: General: Skin is warm and dry. Findings: No erythema or rash. Nails: There is no clubbing. Neurological: Mental Status: She is alert and oriented to person, place, and time. Cranial Nerves: No cranial nerve deficit. Motor: Motor function is intact. Coordination: Coordination normal. Gait: Gait is intact. Psychiatric: Attention and Perception: Attention normal. Mood and Affect: Mood and affect normal. Speech: Speech normal. Behavior: Behavior normal. Behavior is cooperative. Thought Content: Thought content normal. Cognition and Memory: Cognition and memory normal. Judgment: Judgment normal. ASSESSMENT/PLAN: 1. Anxiety with depression - ICD9: 300.4, ICD10: F41.8 (primary diagnosis) Improved on amitriptyline 25 mg daily 2. Obesity, Class II, BMI 35-39.9 - ICD9: 278.00, ICD10: E66.9 Lifestyle modification recommended Анна López DO [facility] 07-14-2023 History of Present illness Narrative Subjective The history is provided by the patient. Pt is here for f/u for depression She feels much better after increasing the dosage of amitriptyline from 10 mg to 25 mg daily She has had a dry mouth, but no other problems with the increase in dosage ALLERGIES Allergen Reactions Cephalosporins Hives Current Outpatient Medications Medication Sig Dispense Refill multivitamin tablet Take 1 tablet by mouth once daily. estradiol (E2) emollient cream 0.2 mg/gram (CPD) Use 0.5 g vaginally three times a week. 20 g amitriptyline (ELAVIL) 25 mg tablet Take 1 tablet by mouth daily at bedtime. 90 tablet 0 clobetasol (TEMOVATE) 0.05 % ointment Apply to vulva 1-2 times/week 45 g 0 No current facility-administered medications for this visit. ACTIVE PROBLEM LIST Obesity, Class II, Bmi 35-39.9 Vaginismus Anxiety With Depression Pelvic Floor Dysfunction Social History Tobacco Use Smoking status: Never Smokeless tobacco: Never Vaping Use Vaping Use: Never used Substance Use Topics Alcohol use: Yes Comment: socially Drug use: Never Family History Problem Relation Age of Onset Diabetes Mother Hypertension Mother Hypertension Father Hyperlipidemia Father other (hypertrophic cardiomyopathy) Father other (other) Brother Melanoma Maternal Grandmother Hypertension Maternal Grandmother Melanoma Maternal Grandfather Hypertension Maternal Grandfather Hypertension Paternal Grandmother Diabetes Paternal Grandmother Hypertension Paternal Grandfather Melanoma Maternal Aunt Reviewed past medical history, family history and surgeries. All medications and supplements were reviewed with the patient. Review of Systems Constitutional: Negative for chills, diaphoresis, fever, malaise/fatigue and weight loss. HENT: Negative for ear pain and hearing loss. Eyes: Negative for blurred vision and double vision. Respiratory: Negative for cough and shortness of breath. Cardiovascular: Negative for chest pain, palpitations and leg swelling. Gastrointestinal: Negative for constipation, diarrhea and heartburn. Genitourinary: Negative for dysuria and frequency. Musculoskeletal: Negative for back pain, falls, joint pain and myalgias. Skin: Negative for itching and rash. Neurological: Negative for dizziness, weakness and headaches. Endo/Heme/Allergies: Does not bruise/bleed easily. Psychiatric/Behavioral: Negative for depression and substance abuse. The patient does not have insomnia. Objective BP 114/76 Pulse 77 Temp 36.3 C (97.3 F) Resp 16 Ht 180.3 cm (5' 11) Wt 125.2 kg (276 lb) SpO2 99% BMI 38.49 kg/m Physical Exam Constitutional: Appearance: Normal appearance. She is obese. HENT: Head: Normocephalic and atraumatic. Nose: Nose normal. Mouth/Throat: Mouth: Mucous membranes are moist. Dentition: Normal dentition. Eyes: General: Lids are normal. Extraocular Movements: Extraocular movements intact. Conjunctiva/sclera: Conjunctivae normal. Pupils: Pupils are equal, round, and reactive to light. Neck: Thyroid: No thyroid mass or thyromegaly. Vascular: No carotid bruit. Trachea: Phonation normal. Cardiovascular: Rate and Rhythm: Normal rate and regular rhythm. Heart sounds: Normal heart sounds. No murmur heard. No friction rub. No gallop. Pulmonary: Effort: Pulmonary effort is normal. Breath sounds: Normal breath sounds. No wheezing or rales. Abdominal: General: Bowel sounds are normal. There is no distension. Palpations: Abdomen is soft. There is no mass. Tenderness: There is no abdominal tenderness. Musculoskeletal: General: No swelling or tenderness. Normal range of motion. Cervical back: Normal range of motion and neck supple. No edema. Lymphadenopathy: Cervical: No cervical adenopathy. Skin: General: Skin is warm and dry. Findings: No erythema or rash. Nails: There is no clubbing. Neurological: Mental Status: She is alert and oriented to person, place, and time. Cranial Nerves: No cranial nerve deficit. Motor: Motor function is intact. Coordination: Coordination normal. Gait: Gait is intact. Psychiatric: Attention and Perception: Attention normal. Mood and Affect: Mood and affect normal. Speech: Speech normal. Behavior: Behavior normal. Behavior is cooperative. Thought Content: Thought content normal. Cognition and Memory: Cognition and memory normal. Judgment: Judgment normal. ASSESSMENT/PLAN: 1. Anxiety with depression - ICD9: 300.4, ICD10: F41.8 (primary diagnosis) Improved on amitriptyline 25 mg daily 2. Obesity, Class II, BMI 35-39.9 - ICD9: 278.00, ICD10: E66.9 Lifestyle modification recommended Анна López DO documented in this encounter [facility] 06-18-2023 Miscellaneous Notes Patient's dad Angel on HIPAA informed orders placed. Angle Brar MA Tests ordered in her office visit note Анна López DO Patient's dad stopped by office stating for patient's practicum with school she needs to have the blood TB test and a urine drug screen. Would like placed so she can complete on Thursday. Once placed just let Angel know. Please advise. Angle Brar MA documented in this encounter [facility] 06-16-2023 Nurse Note Immunizations were given as ordered. Vaccination information sheet(s) given. Angle Brar MA documented in this encounter [facility] 06-16-2023 Note HNO ID: [id number] Author: АННА LÓPEZ DO Service: ? Author Type: Physician Type: Progress Notes Filed: 06/23/2023 17:23 Note Text: SUBJECTIVE: 22 year old female is here with her mother to establish. I have fully reviewed the past medical, surgical, social and family history and updated the Histories section of [facility]. She has been struggling with anxiety and depression since she was a teenager. She had covid this past year and the isolation brought out her depression She has never seen a counselor for this. She has coping skills, and avoids her triggers She is in her last year of college, and is anxious about the life changes that she is anticipating. She is taking amitriptyline for nerve pain She has trouble falling asleep, but does not have trouble staying asleep She saw an FABRIC WORKER SUPERVISOR, uses clobetasol and takes amitriptyline for vaginal irritation and nerve pain She will go to a pelvic sewing machine operator floorperson. 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 ALLERGIES Allergen Reactions Cephalosporins Hives Current Outpatient Medications Medication Sig Dispense Refill multivitamin tablet Take 1 tablet by mouth once daily. clobetasol (TEMOVATE) 0.05 % ointment Apply to vulva 1-2 times/week 45 g 0 amitriptyline (ELAVIL) 10 mg tablet Take 1 tablet by mouth daily at bedtime. 90 tablet 3 amitriptyline (ELAVIL) 10 mg tablet Take 1 tablet (10 mg) by mouth once daily at bedtime. (Patient not taking: Reported on 06/16/2023) 30 tablet 11 No current facility-administered medications for this visit. ACTIVE PROBLEM LIST Obesity, Class II, Bmi 35-39.9 Social History Tobacco Use Smoking status: Never Smokeless tobacco: Never Vaping Use Vaping Use: Never used Substance Use Topics Alcohol use: Yes Comment: socially Drug use: Never Family History Problem Relation Age of Onset Diabetes Mother Hypertension Mother Hypertension Father Hyperlipidemia Father other (hypertrophic cardiomyopathy) Father other (other) Brother Melanoma Maternal Grandmother Hypertension Maternal Grandmother Melanoma Maternal Grandfather Hypertension Maternal Grandfather Hypertension Paternal Grandmother Diabetes Paternal Grandmother Hypertension Paternal Grandfather Melanoma Maternal Aunt Reviewed past medical history, family history and surgeries. All medications and supplements were reviewed with the patient. REVIEW OF SYSTEMS PAIN ASSESSMENT: Negative for pain, history of chronic pain, or current treatment for a chronic pain condition. GENERAL: No weight loss, malaise or fevers HEENT: Negative for frequent or significant headaches, No changes in hearing or vision, no nose bleeds or other nasal problems NECK: Negative for lumps, goiter, pain and significant neck swelling RESPIRATORY: Negative for cough, hemoptysis, wheezing, COPD, dyspnea or shortness of breath CARDIOVASCULAR: Negative for chest pain, leg swelling, hypertension, CHF or palpitations GI: No nausea, vomiting, or diarrhea : Positive for vaginal irritation MUSCULOSKELETAL: Negative for joint pain or swelling, back pain or muscle pain SKIN: Negative for lesions, rash, and itching PSYCH: positive for depression, anxiety and insomnia HEMATOLOGY/LYMPHOLOGY: Negative for prolonged bleeding, bruising easily or swollen nodes ENDOCRINE: Negative for cold or heat intolerance, polyuria, polydipsia and goiter NEURO: No history of headaches, syncope, paralysis, seizures or tremors PHYSICAL EXAMINATION: BP 108/70 Pulse 67 Temp 36.3 ?C (97.4 ?F) Resp 16 Ht 180.3 cm (5' 11) Wt 122 kg (269 lb) SpO2 98% BMI 37.52 kg/m? General appearance: Well appearing, alert, in no acute distress, well-hydrated, obese. Skin: Skin color, texture, turgor normal, no suspicious rashes or lesions Head: Normocephalic, no masses, lesions, tenderness or abnormalities Eyes: Anicteric sclera. Pupils are equally round and reactive to light. Extraocular movements are intact. Ears: External ears normal, canals clear Nose/Sinuses: Nares normal, septum midline, mucosa normal, no drainage or sinus tenderness Oropharynx: Lips, mucosa, and tongue normal, teeth and gums normal, oropharynx normal Neck: Supple, no adenopathy; thyroid symmetric, normal size, no bruits Back: Normal exam Lungs: Lungs clear to auscultation. No wheezing, rhonchi, rales. Heart: RRR without murmur, gallop, or rubs. No ectopy Abdomen: Normal abdominal exam, Abdomen soft, non-tender. Bowel sounds normal. No masses, organomegaly Extremities: No deformities, edema, skin discoloration, clubbing or cyanosis. Good capillary refill. Musculoskeletal: No joint swelling, deformity, or tenderness Peripheral pulses: Normal Neuro: Gait normal. Reflexes normal and symmetric. Sensation grossly intact. ASSES (more content not included)... [facility] 06-16-2023 History of Present illness Narrative SUBJECTIVE: 22 year old female is here with her mother to establish. I have fully reviewed the past medical, surgical, social and family history and updated the Histories section of [employer]. She has been struggling with anxiety and depression since she was a teenager. She had covid this past year and the isolation brought out her depression She has never seen a counselor for this. She has coping skills, and avoids her triggers She is in her last year of college, and is anxious about the life changes that she is anticipating. She is taking amitriptyline for nerve pain She has trouble falling asleep, but does not have trouble staying asleep She saw an FABRIC WORKER SUPERVISOR, uses clobetasol and takes amitriptyline for vaginal irritation and nerve pain She will go to a pelvic sewing machine operator floorperson. 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 ALLERGIES Allergen Reactions Cephalosporins Hives Current Outpatient Medications Medication Sig Dispense Refill multivitamin tablet Take 1 tablet by mouth once daily. clobetasol (TEMOVATE) 0.05 % ointment Apply to vulva 1-2 times/week 45 g 0 amitriptyline (ELAVIL) 10 mg tablet Take 1 tablet by mouth daily at bedtime. 90 tablet 3 amitriptyline (ELAVIL) 10 mg tablet Take 1 tablet (10 mg) by mouth once daily at bedtime. (Patient not taking: Reported on 06/16/2023) 30 tablet 11 No current facility-administered medications for this visit. ACTIVE PROBLEM LIST Obesity, Class II, Bmi 35-39.9 Social History Tobacco Use Smoking status: Never Smokeless tobacco: Never Vaping Use Vaping Use: Never used Substance Use Topics Alcohol use: Yes Comment: socially Drug use: Never Family History Problem Relation Age of Onset Diabetes Mother Hypertension Mother Hypertension Father Hyperlipidemia Father other (hypertrophic cardiomyopathy) Father other (other) Brother Melanoma Maternal Grandmother Hypertension Maternal Grandmother Melanoma Maternal Grandfather Hypertension Maternal Grandfather Hypertension Paternal Grandmother Diabetes Paternal Grandmother Hypertension Paternal Grandfather Melanoma Maternal Aunt Reviewed past medical history, family history and surgeries. All medications and supplements were reviewed with the patient. REVIEW OF SYSTEMS PAIN ASSESSMENT: Negative for pain, history of chronic pain, or current treatment for a chronic pain condition. GENERAL: No weight loss, malaise or fevers HEENT: Negative for frequent or significant headaches, No changes in hearing or vision, no nose bleeds or other nasal problems NECK: Negative for lumps, goiter, pain and significant neck swelling RESPIRATORY: Negative for cough, hemoptysis, wheezing, COPD, dyspnea or shortness of breath CARDIOVASCULAR: Negative for chest pain, leg swelling, hypertension, CHF or palpitations GI: No nausea, vomiting, or diarrhea : Positive for vaginal irritation MUSCULOSKELETAL: Negative for joint pain or swelling, back pain or muscle pain SKIN: Negative for lesions, rash, and itching PSYCH: positive for depression, anxiety and insomnia HEMATOLOGY/LYMPHOLOGY: Negative for prolonged bleeding, bruising easily or swollen nodes ENDOCRINE: Negative for cold or heat intolerance, polyuria, polydipsia and goiter NEURO: No history of headaches, syncope, paralysis, seizures or tremors PHYSICAL EXAMINATION: BP 108/70 Pulse 67 Temp 36.3 C (97.4 F) Resp 16 Ht 180.3 cm (5' 11) Wt 122 kg (269 lb) SpO2 98% BMI 37.52 kg/m General appearance: Well appearing, alert, in no acute distress, well-hydrated, obese. Skin: Skin color, texture, turgor normal, no suspicious rashes or lesions Head: Normocephalic, no masses, lesions, tenderness or abnormalities Eyes: Anicteric sclera. Pupils are equally round and reactive to light. Extraocular movements are intact. Ears: External ears normal, canals clear Nose/Sinuses: Nares normal, septum midline, mucosa normal, no drainage or sinus tenderness Oropharynx: Lips, mucosa, and tongue normal, teeth and gums normal, oropharynx normal Neck: Supple, no adenopathy; thyroid symmetric, normal size, no bruits Back: Normal exam Lungs: Lungs clear to auscultation. No wheezing, rhonchi, rales. Heart: RRR without murmur, gallop, or rubs. No ectopy Abdomen: Normal abdominal exam, Abdomen soft, non-tender. Bowel sounds normal. No masses, organomegaly Extremities: No deformities, edema, skin discoloration, clubbing or cyanosis. Good capillary refill. Musculoskeletal: No joint swelling, deformity, or tenderness Peripheral pulses: Normal Neuro: Gait normal. Reflexes normal and symmetric. Sensation grossly intact. ASSESSMENT/PLAN: 1. Well adult exam - ICD9: V70.0, ICD10: Z00.00 (primary diagnosis) - Counseled on healthy diet and regular exercise - Calcium intake with supplements or by diet of 1000 mg/day for under 50, 2914-5303 mg/day for 50+ 2. Other fatigue - ICD9: 780.79, ICD10: R53.83 - TSH BLD 3. Anxiety with depression - ICD9: 300.4, ICD10: F41.8 PT has been taking amitriptyline for vaginal irritation, and has been tolerating it well Increase amitriptyline from 10 mg to 25 mg daily - CONSULT TO PSYCHOLOGY 4. Pelvic floor dysfunction Pt will be going for pelvic floor exercises She is using clobetasol cream and taking amitriptyline 5. Screening for blood disease - ICD9: V78.9, ICD10: Z13.0 - CBC 6. Screening for endocrine, metabolic and immunity disorder - ICD9: V77.99, ICD10: Z13.29, Z13.228, Z13.0 COMP METABOLIC PANEL 7. Screening cholesterol level - ICD9: V77.91, ICD10: Z13.220 - LIPID PANEL BASIC 8. Obesity, Class II, BMI 35-39.9 - ICD9: 278.00, ICD10: E66.9 Lifestyle modification recommended 9. Encounter for immunization - ICD9: V03.89, ICD10: Z23 - INFLUENZA VACCINE, AGE 6 MO - 64 YR, QUADRIVALENT (AFLURIA, FLULAVAL, FLUZONE) - IMADM PRQ ID SUBQ/IM NJXS 1 VACC - DEPRESSION SCREENING/ASSESSMENT Анна López DO documented in this encounter [facility] 06-05-2023 History of Present illness Narrative Images from the original note were not included. Subjective Patient ID: Evelina Sam is a 22 y.o. female who presents for Annual Exam. HPI Was having regular periods until 08/2022 AUB-skipping periods; 4 periods since Was able to insert tampon for the first time without pain No vaginal pain or irritation h/o LS and vulvodynia h/o PCOS and has a prescription for progesterone if amenorrheic for 3 months current regiment clobetasol 3 times/week and estradiol + testosterone 1 time/week vaginal hygiene: water only with hand held shower piece amitriptyline 10mg at HS no contraception 5-7 days of VB and no dysmenorrhea cramping and VB less after stopping the MEENU Review of Systems Objective Physical Exam Vitals and nursing note reviewed. Constitutional: Appearance: Normal appearance. Neck: Thyroid: No thyroid mass. Cardiovascular: Rate and Rhythm: Normal rate and regular rhythm. Heart sounds: Normal heart sounds. Pulmonary: Effort: Pulmonary effort is normal. Breath sounds: Normal breath sounds. Abdominal: Tenderness: There is no abdominal tenderness. Genitourinary: General: Normal vulva. Exam position: Lithotomy position. Labia: Right: No lesion. Left: No lesion. Comments: Pain in the above marked areas Pain with palpation of pelvic floor muscles; exam stopped short d/t pain Skin: General: Skin is warm and dry. Neurological: Mental Status: She is alert. Psychiatric: Attention and Perception: Attention normal. Mood and Affect: Mood normal. Speech: Speech normal. Behavior: Behavior normal. Thought Content: Thought content normal. Cognition and Memory: Cognition and memory normal. Judgment: Judgment normal. Assessment/Plan Diagnoses and all orders for this visit: Well woman exam with routine gynecological exam Pelvic pain - Referral to Physical Therapy; Future Vulvodynia Cervical pap screening not done d/t pain Pt to follow up with me after she completes PFPT Clobetasol decreased to 1-2 times/week compounded 0.03% estradiol + 0.1% testosterone increased to 3 times/week Amitriptyline to stay the same at 10mg po at HS YULIA Castaneda 06/05/23 11:13 AM documented in this encounter [facility] Work Phone: 09-10-2021 History of Present illness Narrative h/o LS and vulvodyniacurrent treatment: compounded estradiol wilth testosterone 3 times/weekclobetasol 2-3 times/[id number] amitriptyline at [facility] discontinued 04/2021h/o PCOS working with endocrinologycurrently has prescription for progesterone if she is amenorrheic for 3 monthsLMP 08/22, 07/10leave for camp at the end of the month for the next 10 weeksno pain with application of creams, ointmentno AEoverall happy with results [id number] 300 Work Phone: 05-28-2021 History of Present illness Narrative 2 month f/u ago amitriptyline, taking progesterone instead of COCF/u for14 days progesterone: feels extreme fatigue and drugged intermittently with amitriptyline. Feels like can't walk straight, but unknown pattern. Has to take at 8:30pm, any time later will feel groggy and dizzy in morning.Spotting in the tail end of the time off of progesterone, no crampingMood swings are more controlled since going off of control, no vulvar paincan't wear tamponsLMP: 05/02/21, takes full weekstill bleeding old bloodvulvodynia: prescribed amitriptyline at last appointmentLS: previously on clobetasol, has not been applying it [id number] 300 Work Phone: 01-29-2021 History of Present illness Narrative 20yo first pap-pt reports it was very painfulCOC for AUB; since she was 13-13 years oldwas diagnosed with PCOShas never been sexually activewas prescribed clobetasol; daily for the first month, then QOD, currently using it twice a weekno c/o vaginal irritationpain with tampon use and unable to insertvaginal hygiene: water only [id number] 300 Work Phone: Evaluation note Diagnosis Well woman exam with routine gynecological exam- Primary Routine gynecological examination Pelvic pain Vulvodynia Lichen sclerosus 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 [facility] Work Phone: Evaluation note* Diagnosis Screening-pulmonary TB- Primary Screening examination for pulmonary tuberculosis Encounter for drug screening Other specified examination Response to cell-mediated gamma interferon antigen without active TB Nonspecific reaction to cell mediated immunity measurement of gamma interferon antigen response without active tuberculosis [facility] Diagnosis Well adult exam- Primary Routine general medical examination at a health care facility Other fatigue Anxiety with depression Pelvic floor dysfunction Pelvic muscle wasting Screening for blood disease Screening for unspecified disorder of blood and blood-forming organs Screening for endocrine, metabolic and immunity disorder Screening cholesterol level Screening for lipoid disorders Obesity, Class II, BMI 35-39.9 Obesity, unspecified Encounter for immunization Need for other specified prophylactic vaccination against single bacterial disease [facility] Anxiety with depression- Primary Obesity, Class II, BMI 35-39.9 Obesity, unspecified [facility] Diagnosis Hyperlipidemia, mixed- Primary Mixed hyperlipidemia [facility] Diagnosis Anxiety with depression- Primary Bacterial sinusitis Unspecified sinusitis (chronic) Encounter for immunization Need for other specified prophylactic vaccination against single bacterial disease Obesity, Class II, BMI 35-39.9 Obesity, unspecified [facility] Diagnosis Well woman exam with routine gynecological exam- Primary Routine gynecological examination Vulvodynia documented in this encounter [facility] Work Phone: Evaluation note* Diagnosis Myopia of both eyes- Primary Myopia [facility] Diagnosis Anxiety with depression- Primary [facility] Diagnosis Anxiety with depression [facility]* Pt. presents for f/u on tx for vulvar irritation with significant agglutination and change in vulvar architecture * Pt. unable to use tampons and also unable to tolerate speculum exam * States irritation sx are improved with Clobetasol and pain in unchanged. Pt. uses is OCP for cycle control and we previously reviewed that this may be contributing to her discomfort yet at this time preventing dyspareunia is more important to pt. * Pt. tearful about long-term trajectory [address] Work Phone: History of Present illness Narrative* 20yo first pap- pt reports it was very painful * MEENU for AUB; since she was 13-14 years old * was diagnosed with PCOS * has never been sexually active * was prescribed clobetasol; daily for the first month, then QOD, currently using it twice a week * no c/o vaginal irritation * pain with tampon use and unable to insert * vaginal hygiene: water only [id number] 300 Work Phone: History of Present illness [id number] referred by Dilan Gross CNP for evaluation of PCOS. Patient and her mother present today for her appointment. Per the mother she was diagnosed with PCOS in her early to mid teens after starting to have irregular menstrual cycles. They are unclear on what blood work and what the results were done at that time. She was put on control pills. She was on oral contraceptives and did finewith them until sent for initial pelvic exam which was problematic due to some irritation. She was referred to gynecology and was taken off of control pills a few weeks ago. She was given estrogen cream that seemed to make the irritation worse. She is also taking progesterone in a cyclical fashion. She has been slowly gaining weight over the last couple of years and has gained about 50 pounds since high school. Her mother also struggled with her weight and had a gastric bypass in the lastfew years. Evelina has not been really watching anything specific in her eating habits. She has beenable to lose 5 to 10 pounds on various diet plans but when she stops she goes back up. She denies any hair loss hirsutism or acne. She did try to go off oral contraceptives a few years ago and tried the Depo shot but gained a tremendous amount of weight on it. She does have a family history of diabetes in her paternal grandparents. Her mother was prediabetic prior to her gastric bypass. She denies any chest pain, shortness of breath, nausea, vomiting, diarrhea, constipation, fevers, or chills MP-MRSA [facility] [facility] Work Phone: History of Present illness [id number] referred by Dilan Gross CNP for evaluation of PCOS. Patient and her mother present today for her appointment. Per the mother she was diagnosed with PCOS in her early to mid teens after starting to have irregular menstrual cycles. They are unclear on what blood work and what the results were done at that time. She was put on control pills. She was on oral contraceptives and did finewith them until sent for initial pelvic exam which was problematic due to some irritation. She was referred to gynecology and was taken off of control pills a few weeks ago. She was given estrogen cream that seemed to make the irritation worse. She is also taking progesterone in a cyclical fashion. She has been slowly gaining weight over the last couple of years and has gained about 50 pounds since high school. Her mother also struggled with her weight and had a gastric bypass in the lastfew years. Evelina has not been really watching anything specific in her eating habits. She has beenable to lose 5 to 10 pounds on various diet plans but when she stops she goes back up. She denies any hair loss hirsutism or acne. She did try to go off oral contraceptives a few years ago and tried the Depo shot but gained a tremendous amount of weight on it. She does have a family history of diabetes in her paternal grandparents. Her mother was prediabetic prior to her gastric bypass. She denies any chest pain, shortness of breath, nausea, vomiting, diarrhea, constipation, fevers, or chills [facility] Work Phone: History of Present illness [id number] here for f/u PCOS. Since last visit doing fine on metformin as far as tolerance but still struggling with weight. Followed low carb plan for several months but had minimal exercise....down 4 lbs. Hopes for beter results when busier this summer. She denies any chest pain, shortness of breath, nausea, vomiting, diarrhea, constipation, fevers, or chillsMP-MRSA [employer] [facility] Work Phone: Reason for referral (narrative)* Consultation (Routine) - Pending Review Specialty Diagnoses / Procedures Referred By Gustavo horowitz Referred To Contact Physical Therapy Diagnoses Pelvic pain Delroy Gross, YULIA [address] [facility] [address] [place] [address] Referral ID Status Reason Start Date Expiration Date Visits Requested Visits Authorized [id number] Pending Review Specialty Services Required 06/05/2023 06/04/2024 1 1 [facility] Work Phone: Summary Purpose Family History No Family History Records Found Grandmother Name Dates Details Family history of hypertensi on(V17.49, Z82.49) Status:Active Grandfather Name Dates Details Family history of cardiac di sorder(V17.49, Z82.49) Status:Active Mother Name Dates Details Family history of hypertensi on(V17.49, Z82.49) Status:Active Family history of type 2 shaina betes mellitus(V18.0, Z83.3) Status:Active Father Name Dates Details Family history of hypertensi on(V17.49, Z82.49) Status:Active Family history of cardiomyop athy(7.49, Z82.49) Status:Active Family history of Irregular heart beat(427.9, I49.9) Status:Active Grandfather Name Dates Details Family history of hypertensi on(V17.49, Z82.49) Status:Active Family history of hyperchole sterolemia(V18.19, Z83.42) Status:Active Family history of cardiac di sorder(7.49, Z82.49) Status:Active Grandmother Name Dates Details Family history of hypertensi on(.49, Z82.49) Status:Active Grandfather Name Dates Details Family history of cardiac di sorder(.49, Z82.49) Status:Active Mother Name Dates Details Family history of hypertensi on(7.49, Z82.49) Status:Active Family history of type 2 shaina betes mellitus(V18.0, Z83.3) Status:Active Father Name Dates Details Family history of hypertensi on(7.49, Z82.49) Status:Active Family history of cardiomyop athy(.49, Z82.49) Status:Active Family history of Irregular heart beat(427.9, I49.9) Status:Active Grandfather Name Dates Details Family history of hypertensi on(7.49, Z82.49) Status:Active Family history of hyperchole sterolemia(V18.19, Z83.42) Status:Active Family history of cardiac di sorder(V17.49, Z82.49) Status:Active Unknown Family Member Name Dates Details Family history of hypertensi on: Mother, Father, Maternal Grandmother, Maternal Grandfather(7.49, Z82.49) Status:Active Family history of type 2 shaina betes mellitus: Mother(V18.0, Z83.3) Status:Active Family history of cardiomyop athy: Father(V17.49, Z82.49) Status:Active Irregular heart beat: Father Status:Active Family history of hyperchole sterolemia: Maternal Grandfather(V18.19, Z83.42) Status:Active Family history of cardiac di sorder: Maternal Grandfather, Paternal Grandfather(V17.49, Z82.49) Status:Active Unknown Family Member Name Dates Details Family history of hypertensi on: Mother, Father, Maternal Grandmother, Maternal Grandfather(V17.49, Z82.49) Status:Active Family history of type 2 shaina betes mellitus: Mother(V18.0, Z83.3) Status:Active Family history of cardiomyop athy: Father(V17.49, Z82.49) Status:Active Irregular heart beat: Father Status:Active Family history of hyperchole sterolemia: Maternal Grandfather(V18.19, Z83.42) Status:Active Family history of cardiac di sorder: Maternal Grandfather, Paternal Grandfather(V17.49, Z82.49) Status:Active Unknown Family Member Name Dates Details Family history of hypertensi on: Mother, Father, Maternal Grandmother, Maternal Grandfather(V17.49, Z82.49) Status:Active Family history of type 2 shaina betes mellitus: Mother(V18.0, Z83.3) Status:Active Family history of cardiomyop athy: Father(V17.49, Z82.49) Status:Active Irregular heart beat: Father Status:Active Family history of hyperchole sterolemia: Maternal Grandfather(V18.19, Z83.42) Status:Active Family history of cardiac di sorder: Maternal Grandfather, Paternal Grandfather(V17.49, Z82.49) Status:Active Unknown Family Member Name Dates Details Family history of hypertensi on: Mother, Father, Maternal Grandmother, Maternal Grandfather(V17.49, Z82.49) Status:Active Family history of type 2 shaina betes mellitus: Mother(V18.0, Z83.3) Status:Active Family history of cardiomyop athy: Father(V17.49, Z82.49) Status:Active Irregular heart beat: Father Status:Active Family history of hyperchole sterolemia: Maternal Grandfather(V18.19, Z83.42) Status:Active Family history of cardiac di sorder: Maternal Grandfather, Paternal Grandfather(V17.49, Z82.49) Status:Active Unknown Family Member Name Dates Details Family history of hypertensi on: Mother, Father, Maternal Grandmother, Maternal Grandfather(V17.49, Z82.49) Status:Active Family history of type 2 shaina betes mellitus: Mother(V18.0, Z83.3) Status:Active Family history of cardiomyop athy: Father(V17.49, Z82.49) Status:Active Irregular heart beat: Father Status:Active Family history of hyperchole sterolemia: Maternal Grandfather(V18.19, Z83.42) Status:Active Family history of cardiac di sorder: Maternal Grandfather, Paternal Grandfather(V17.49, Z82.49) Status:Active Unknown Family Member Name Dates Details Family history of hypertensi on: Mother, Father, Maternal Grandmother, Maternal Grandfather(V17.49, Z82.49) Status:Active Family history of type 2 shaina betes mellitus: Mother(V18.0, Z83.3) Status:Active Family history of cardiomyop athy: Father(V17.49, Z82.49) Status:Active Irregular heart beat: Father Status:Active Family history of hyperchole sterolemia: Maternal Grandfather(V18.19, Z83.42) Status:Active Family history of cardiac di sorder: Maternal Grandfather, Paternal Grandfather(V17.49, Z82.49) Status:Active Unknown Family Member Name Dates Details Family history of hypertensi on: Mother, Father, Maternal Grandmother, Maternal Grandfather(V17.49, Z82.49) Status:Active Family history of type 2 shaina betes mellitus: Mother(V18.0, Z83.3) Status:Active Family history of cardiomyop athy: Father(V17.49, Z82.49) Status:Active Irregular heart beat: Father Status:Active Family history of hyperchole sterolemia: Maternal Grandfather(V18.19, Z83.42) Status:Active Family history of cardiac di sorder: Maternal Grandfather, Paternal Grandfather(V17.49, Z82.49) Status:Active Unknown Family Member Name Dates Details Family history of hypertensi on: Mother, Father, Maternal Grandmother, Maternal Grandfather(V17.49, Z82.49) Status:Active Family history of type 2 shaina betes mellitus: Mother(V18.0, Z83.3) Status:Active Family history of cardiomyop athy: Father(V17.49, Z82.49) Status:Active Irregular heart beat: Father Status:Active Family history of hyperchole sterolemia: Maternal Grandfather(V18.19, Z83.42) Status:Active Family history of cardiac di sorder: Maternal Grandfather, Paternal Grandfather(V17.49, Z82.49) Status:Active Unknown Family Member Name Dates Details Family history of cardiac di sorder: Maternal Grandfather, Paternal Grandfather(V17.49, Z82.49) Status:Active Family history of hyperchole sterolemia: Maternal Grandfather(V18.19, Z83.42) Status:Active Irregular heart beat: Father Status:Active Family history of cardiomyop athy: Father(V17.49, Z82.49) Status:Active Family history of type 2 shaina betes mellitus: Mother(V18.0, Z83.3) Status:Active Family history of hypertensi on: Mother, Father, Maternal Grandmother, Maternal Grandfather(V17.49, Z82.49) Status:Active Unknown Family Member Name Dates Details Family history of hypertensi on: Mother, Father, Maternal Grandmother, Maternal Grandfather(V17.49, Z82.49) Status:Active Family history of type 2 shaina betes mellitus: Mother(V18.0, Z83.3) Status:Active Family history of cardiomyop athy: Father(V17.49, Z82.49) Status:Active Irregular heart beat: Father Status:Active Family history of hyperchole sterolemia: Maternal Grandfather(V18.19, Z83.42) Status:Active Family history of cardiac di sorder: Maternal Grandfather, Paternal Grandfather(V17.49, Z82.49) Status:Active Unknown Family Member Name Dates Details Family history of hypertensi on: Mother, Father, Maternal Grandmother, Maternal Grandfather(V17.49, Z82.49) Status:Active Family history of type 2 shaina betes mellitus: Mother(V18.0, Z83.3) Status:Active Family history of cardiomyop athy: Father(V17.49, Z82.49) Status:Active Irregular heart beat: Father Status:Active Family history of hyperchole sterolemia: Maternal Grandfather(V18.19, Z83.42) Status:Active Family history of cardiac di sorder: Maternal Grandfather, Paternal Grandfather(V17.49, Z82.49) Status:Active Unknown Family Member Name Dates Details Family history of hypertensi on: Mother, Father, Maternal Grandmother, Maternal Grandfather(V17.49, Z82.49) Status:Active Family history of type 2 shaina betes mellitus: Mother(V18.0, Z83.3) Status:Active Family history of cardiomyop athy: Father(V17.49, Z82.49) Status:Active Irregular heart beat: Father Status:Active Family history of hyperchole sterolemia: Maternal Grandfather(V18.19, Z83.42) Status:Active Family history of cardiac di sorder: Maternal Grandfather, Paternal Grandfather(V17.49, Z82.49) Status:Active Unknown Family Member Name Dates Details Family history of hypertensi on: Mother, Father, Maternal Grandmother, Maternal Grandfather(V17.49, Z82.49) Status:Active Family history of cardiac di sorder: Maternal Grandfather, Paternal Grandfather(V17.49, Z82.49) Status:Active Family history of type 2 shaina betes mellitus: Mother(V18.0, Z83.3) Status:Active Family history of cardiomyop athy: Father(V17.49, Z82.49) Status:Active Irregular heart beat: Father Status:Active Family history of hyperchole sterolemia: Maternal Grandfather(V18.19, Z83.42) Status:Active Unknown Family Member Name Dates Details Family history of hypertensi on: Mother, Father, Maternal Grandmother, Maternal Grandfather(V17.49, Z82.49) Status:Active Family history of type 2 shaina betes mellitus: Mother(V18.0, Z83.3) Status:Active Family history of cardiomyop athy: Father(V17.49, Z82.49) Status:Active Irregular heart beat: Father Status:Active Family history of hyperchole sterolemia: Maternal Grandfather(V18.19, Z83.42) Status:Active Family history of cardiac di sorder: Maternal Grandfather, Paternal Grandfather(V17.49, Z82.49) Status:Active Unknown Family Member Name Dates Details Family history of hypertensi on: Mother, Father, Maternal Grandmother, Maternal Grandfather(V17.49, Z82.49) Status:Active Family history of type 2 shaina betes mellitus: Mother(V18.0, Z83.3) Status:Active Family history of cardiomyop athy: Father(V17.49, Z82.49) Status:Active Irregular heart beat: Father Status:Active Family history of hyperchole sterolemia: Maternal Grandfather(V18.19, Z83.42) Status:Active Family history of cardiac di sorder: Maternal Grandfather, Paternal Grandfather(V17.49, Z82.49) Status:Active Unknown Family Member Name Dates Details Family history of hypertensi on: Mother, Father, Maternal Grandmother, Maternal Grandfather(V17.49, Z82.49) Status:Active Family history of type 2 shaina betes mellitus: Mother(V18.0, Z83.3) Status:Active Family history of cardiomyop athy: Father(V17.49, Z82.49) Status:Active Irregular heart beat: Father Status:Active Family history of hyperchole sterolemia: Maternal Grandfather(V18.19, Z83.42) Status:Active Family history of cardiac di sorder: Maternal Grandfather, Paternal Grandfather(V17.49, Z82.49) Status:Active Advance Directives No Advanced Directives Records FoundNo Advanced Directives Records FoundNo Advanced Directives Records FoundNo Advanced Directives Records FoundNo Advanced Directives Records FoundNo Advanced Directives Records FoundNo Advanced Directives Records FoundNo Advanced Directives Records FoundNo Advanced Directives Records Found Chief Complaint PATIENT PRESENTS FOR A VULVAR IRRITATION FOLLOW UP WITH NO CONCERNS AND STATES THE CREAM HAS HELPEDWELL* patient is here for vaginal irritation was prescribed cream to use states it has not gotten better even with the cream * Curator Of Manuscripts declined, DeAndria Funches, CMAII * patient is here for vaginal irritation was prescribed cream to use states it has not gotten better even with the cream * Curator Of Manuscripts declined, Ryan Herrera CMAII patient is here for an endocrine consult for PCOS. Patient was referred by Delroy Gross--fabien bpatient is here for an endocrine consult for PCOS. Patient was referred by Delroy Gross--fabien b* F/U for: vulvodynia * Curator Of Manuscripts declined, Ryan Herrera CMAII patient is here for a follow up to PCOS--cmb* F/U for: vulvodynia & LS * Curator Of Manuscripts declined, Ryan Herrera CMAII Reason for Referral Specialty Diagnoses / Procedures Referred By Gustavo t Referred To Contact Psychology Diagnoses Anxiety with depression Procedures CONSULT TO PSYCHOLOGY OFFICE/OUTPATIENT [facility] 60 MINUTES Анна López DO [address] [place] [address] Referral ID Status Reason Start Date Expiration Date Visits Requested Visits Authorized [id number] Authorized PCP Requested Referral 06/16/2023 06/15/2024 1 1 Additional Source Comments INFORMATION SOURCE (unrecogn ized section and content) DATE CREATED AUTHOR 07/06/2018 [facility] DATE CREATED AUTHOR AUTHOR'S ORGANIZ ATION 02/17/2020 [facility] DATE CREATED AUTHOR AUTHOR'S ORGANIZ ATION 04/08/2022 [facility] DATE CREATED AUTHOR AUTHOR'S ORGANIZ ATION 04/08/2022 [facility] DATE CREATED AUTHOR AUTHOR'S ORGANIZ ATION 01/16/2024 [facility] DATE CREATED AUTHOR AUTHOR'S ORGANIZ ATION 08/12/2024 [facility] DATE CREATED AUTHOR AUTHOR'S ORGANIZ ATION 08/12/2024 [facility] DATE CREATED AUTHOR AUTHOR'S ORGANIZ ATION 09/07/2024 [facility] DATE CREATED AUTHOR AUTHOR'S ORGANIZ ATION 01/18/2025 [facility] Reason for Visit (unrecogniz ed section and content) Reason Comments Annual Exam Reason Comments Lab Orders Reason Comments New Patient Establish care previ ous pcp was [facility] Reason Comments F/U 1 month Anxiety and depressi on after increasing amitriptyline dose, states it does seem to be helping, took awhile to take effect. Noticed since increasing dose she has dry mouth in the mornings Reason Comments Refill Request Reason Comments F/U 6 Month Anxiety and depressi on. Has had a cough productive with green phlegm, sinus congestion/pressure, chest tightness/congestion. Denies any fevers, sore throat. Did not test for covid. Has been taking allergy relief and robitussin DM. Symptoms for the last 4 weeks Reason Onset Date Comments Refill Request 03/23/2024 Reason Comments Annual Exam Reason Comments Yearly Exam Contact lens evaluation Reason Onset Date Comments Refill Request 12/28/2024 Care Teams (unrecognized sec tion and content) Churn Operator Margarine Relationship Specialty Start Date End Date Faustino Tellez, MACHINE COIL ASSEMBLER-MANUFACTURING AREA MANAGER [address] [facility], [facility] [address] [place] [address] PCP - General 08/03/20 Churn Operator Margarine Relationship Specialty Start Date End Date Анна López DO [address] [place] [id number] PCP - General Family Medicine 06/16/23 Churn Operator Margarine Relationship Specialty Start Date End Date Анна López DO [address] [place] [id number] PCP - General Family Medicine 06/16/23 Churn Operator Margarine Relationship Specialty Start Date End Date Анна López DO [address] [place] [id number] PCP - General Family Medicine 06/16/23 Churn Operator Margarine Relationship Specialty Start Date End Date Анна López DO [address] [place] [id number] PCP - General Family Medicine 06/16/23 Churn Operator Margarine Relationship Specialty Start Date End Date Анна López DO [address] [facility], [place] [phone] PCP - General Family Medicine 06/16/23 Churn Operator Margarine Relationship Specialty Start Date End Date Анна López DO [address] [facility] [place] [phone] PCP - General Family Medicine 06/16/23 Churn Operator Margarine Relationship Specialty Start Date End Date Анна López DO [address] [facility], [place] [phone] PCP - General Family Medicine 06/16/23 Churn Operator Margarine Relationship Specialty Start Date End Date Анна López DO [address] [facility], [place] [phone] PCP - General Family Medicine 06/16/23 Churn Operator Margarine Relationship Specialty Start Date End Date Faustino Tellez, MACHINE COIL ASSEMBLER-MANUFACTURING AREA MANAGER [facility] [facility] [place] [address] PCP - General 08/03/20 Churn Operator Margarine Relationship Specialty Start Date End Date Анна López DO [address] [facility], [place] [phone] PCP - General Family Medicine 06/16/23 Churn Operator Margarine Relationship Specialty Start Date End Date Анна López DO [address] [facility], [place] [phone] PCP - General Family Medicine 06/16/23 Source Comments (unrecognize d section and content) In the event this informatio n is protected by the Federal Confidentiality of Alcohol and Drug Abuse Patient Records regulations: The Federal rules restrict any use of the information to criminally investigate or prosecute any alcohol or drug abuse patient.[facility] the event this information is protected by the Federal Confidentiality of Alcohol and Drug Abuse Patient Records regulations: The Federal rules restrict any use of the information to criminally investigate or prosecute any alcohol or drug abuse patient.[facility] Center[facility] the event this information is protected by the Federal Confidentiality of Alcohol and Drug Abuse Patient Records regulations: The Federal rules restrict any use of the information to criminally investigate or prosecute any alcohol or drug abuse patient.[facility] the event this information is protected by the Federal Confidentiality of Alcohol and Drug Abuse Patient Records regulations: The Federal rules restrict any use of the information to criminally investigate or prosecute any alcohol or drug abuse patient.[facility] the event this information is protected by the Federal Confidentiality of Alcohol and Drug Abuse Patient Records regulations: The Federal rules restrict any use of the information to criminally investigate or prosecute any alcohol or drug abuse patient.[facility] the event this information is protected by the Federal Confidentiality of Alcohol and Drug Abuse Patient Records regulations: The Federal rules restrict any use of the information to criminally investigate or prosecute any alcohol or drug abuse patient.[facility] the event this information is protected by the Federal Confidentiality of Alcohol and Drug Abuse Patient Records regulations: The Federal rules restrict any use of the information to criminally investigate or prosecute any alcohol or drug abuse patient.[facility] the event this information is protected by the Federal Confidentiality of Alcohol and Drug Abuse Patient Records regulations: The Federal rules restrict any use of the information to criminally investigate or prosecute any alcohol or drug abuse patient.[facility] the event this information is protected by the Federal Confidentiality of Alcohol and Drug Abuse Patient Records regulations: The Federal rules restrict any use of the information to criminally investigate or prosecute any alcohol or drug abuse patient.[facility] the event this information is protected by the Federal Confidentiality of Alcohol and Drug Abuse Patient Records regulations: The Federal rules restrict any use of the information to criminally investigate or prosecute any alcohol or drug abuse patient.[facility] Center[facility] the event this information is protected by the Federal Confidentiality of Alcohol and Drug Abuse Patient Records regulations: The Federal rules restrict any use of the information to criminally investigate or prosecute any alcohol or drug abuse patient.[facility] FOR RECORDS PERTAINING TO PATIENTS WHO ARE OR HAVE BEEN ENROLLED IN A CHEMICAL DEPENDENCY/SUBSTANCEABUSE PROGRAM, SOME INFORMATION MAY BE OMITTED. This clinical summary was aggregated from multiple sources. Caution should be exercised in using it in the provision of clinical care. This summary normalizes information from multiple sources, and as a consequence, information in this document may materially change the coding, format and clinical context of patient data. In addition, data may be omitted in some cases. CLINICAL DECISIONS SHOULD BE BASED ON THE PRIMARY CLINICAL RECORDS. [facility]. provides no warranty or guarantee of the accuracy or completeness of information in this document.
[2025-03-29 08:55] LABS: Cholesterol 161 mg/dL (<=200); Follicle Stimulating Hormone 5.7 mIU/mL; Low Density Lipoprotein Calc. 89 mg/dL; Triglycerides 152 mg/dL; Very Low Density Lipoprotein 30 mg/dL (5-40); Vitamin D,25 Hydroxy 20.5 ng/mL (30-100); cholesterol:hdl ratio screen 3.55
[2025-03-31 11:08] LABS: PROLACTIN 13.2 ng/mL (4.8-33.4)
== END | disposition home or self-care (01) ==
LOC: LAB 07:18
PROVIDERS: PCP Family Medicine; Referring Provider Nurse Practitioner Women's Health; Visit Provider Nurse Practitioner Women's Health
DX: N91.4 Secondary oligomenorrhea (principal); E66.9 Obesity, unspecified
CPT/HCPCS: 36415; 80061; 82306; 82627; 82670; 83001; 83036; 83498; 84146; 84402; 84439; 84443; 86376; 82626

== ENCOUNTER → 2025-04-03 | Outpatient (CLI) | payer OTHER, SELFPAY ==
--- NOTE | 2025-04-03 13:57 | BI_ITS ---
EXAM: DIAG MAMM W/CAD, BILAT N/A CLINICAL HISTORY: F, Age 24 y/o , palpable abnormality in the upper-outer quadrant of the right breast which she 1st noted approximately 1 month ago. There is no nipple discharge or inversion. No known trauma. No tenderness with palpation. No history of prior biopsy or surgery. Evaluate. Patient states palpable area has decreased in size. She has trouble finding it at times. She is uncertain if it is associated with her menstrual cycle. RIGHT BREAST UPPER INNER AND LOWER OUTER. TECHNIQUE: Procedure Code: [id number] Modality: MG Procedure: DIAG MAMM W/CAD, BILAT. COMPARISON: None. This is a baseline study. FINDINGS: TISSUE DENSITY: There are scattered areas of fibroglandular density. Bilateral Breast Mammographic Findings: A radiopaque marker is placed over the right breast palpable abnormality. The marker is located in the superior outer quadrant of the right breast. There is no mammographic abnormality to correlate to this area of palpable abnormality. The area of palpable abnormality appears to represent normal breast parenchymal tissue. There is a 5 mm density in the superior far posterior aspect of the left breast. On the armaan images this appears to have a fatty hilum and is most compatible with an intramammary lymph node. No suspicious masses, suspicious clustered microcalcifications, architectural distortion or secondary sign of malignancy is identified in either breast. BI/DIAG MAMM W/CAD, BILAT IMPRESSION: A radiopaque marker is placed over the right breast palpable abnormality. The marker is located in the superior outer quadrant of the right breast. There is no mammographic abnormality to correlate to this area of palpable abnormality. The area of palpable abnormality appears to represent normal breast parenchymal tissue. OVERALL FINAL ASSESSMENT BI-RADS 2: BENIGN RECOMMENDATION: Routine annual follow-up in 1 Year Additional Recommendation none A letter with findings and recommendations will be mailed to the patient. Reading Location: [id number]
--- OUTSIDE RECORDS SUMMARY | 2025-04-03 15:11 | XMS RPT_ITS | CCD ---
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 JOSEF ORETZ Referring Unavailab arianne Tellez, Ms. Faustino Bhardwaj [...] (1 source) Cephalosporins (Antibiotic) Drug Allergy [address] [facility] (20 sources) Cephalosporins (Antibiotic); Translations: [cephalosporins] Propensity to adverse reactions to drug (disorder) 4 [facility] (20 sources) Pollen; Translations: [Pollen] Propensity to adverse reactions to drug (disorder) Sneezing [facility] (3 sources) Bee pollen; Translations: [BEE POLLEN] Drug Allergy 4 [facility] Medications Current Medications Medication Drug Class(es) Dates [...] 01-16-2025 HEP B Surf Ab Non-Reactive Normal [facility] Comment on above: Result Comment: <8.5 mIU/mL: Non-Reactive 8.5<= x <11.5 mIU/mL: Indeterminate >=11.5 mIU/mL: Reactive Non Reactive: Inconsistent with immunity less than <10 mIU/mL Reactive: Consistent with immunity greater than or equal to 10 mIU/mL Performed By: #### L 3890.6202 #### [facility] Prabhjot [address]. [place], [place], [address] TSH W/REFLEX TO FT4on 2024 TSH W/REFLEX TO FT4 1.89 mIU/L Normal [facility] Comment on above: Order Comment: FASTI NG:UNKNOWN FASTING: UNKNOWN Result Comment: Refe rence Range > or = 20 Years 0.40-4.50 Ranges First trimester 0.26-2.66 Second trimester 0.55-2.73 Third trimester 0.43-2.91 Performed By: #### 3 6127 #### [facility] [address], [address] [place] [address] Chemical Maker: Rudy Tong 01-14-2024 CNOV Office Visit (AGFAMP LE) EVELINA SAM ([id number]) 89 F Date Time Provider Department 01/14/24 [...] content normal. (more content not included)... Normal [facility] 09-22-2023 [facility] Telephone (AGGravyLE) EVELINA SAM ([id number]) 89 F Date Time Provider Department 09/22/23 [...] [E78.2] Order(s):LIPID PANEL BASIC [SQLIPB] Order #: [id number] FUTURE Prescriptions as of 09/23/2023 - amitriptyline [...] Encounter Status:Closed by ANGELINA MARTINEZ on 09/23/23 [facility] CNOVon 07-14-2023 CNOV Office Visit (AGCHRIS SCHMID) EVELINA SAM ([id number]) 89 F Date Time Provider Department 07/14/23 [...] ICD9: 300.4 (more content not included)... Normal [facility] BLOOD TB SCREEN, INCUBATEDon 06-20-2023 M. tuberculosis tuberculin stim IFN-g Ql (Bld) Negative Normal [facility] Comment on above: Order Comment: Speci men Type: BLOOD SPECIMEN Ordering Facility: [facility] Address: [address] [place] [address] Performed By: #### I NTPGP #### [facility] CLIA [id number] [address] [place] [address] [place] [address] [place] MITOGEN MINUS NIL >9.99 Normal >=0.50 [facility] Comment on above: Order Comment: Speci men Type: BLOOD SPECIMEN Ordering Facility: [facility] Address: [address] [place] [address] Performed By: #### I NTPGP #### [facility] CLIA [id number] [address] [place] [address] OF [facility] TB GAMMA INTERPRETATION Infection with M. tuberculosis complex is unlikely. If latent tuberculosis infection is highly suspected, a negative result does not rule out the infection. Specimens from immunocompromised patients and those <5 years of age may show false negative results. In case of a contact investigation, please repeat 8-12 weeks after a known exposure. Normal [facility] Comment on above: Order Comment: Speci men Type: BLOOD SPECIMEN Ordering Facility: [facility] Address: [address] [place] [address] Performed By: #### I NTPGP #### [facility] CLIA [id number] [address] [place] [address] TB NIL 0.01 IU/mL Normal <=8.00 [facility] Comment on above: Order Comment: Speci men Type: BLOOD SPECIMEN Ordering Facility: [facility] Address: [address] [place] [address] Performed By: #### I NTPGP #### [facility] CLIA [id number] [address] [place] [address] [place] TB1 AG MINUS NIL 0.00 IU/mL Normal <0.35 [facility] Comment on above: Order Comment: Speci men Type: BLOOD SPECIMEN Ordering Facility: [facility] Address: [address] [place] [address] Performed By: #### I NTPGP #### [facility] CLIA [id number] [address] [place] [address] [place] TB2 AG MINUS NIL 0.01 IU/mL Normal <0.35 [facility] Comment on above: Order Comment: Speci vandana Type: BLOOD SPECIMEN Ordering Facility: [facility] Address: [address] [place] [address] Performed By: #### I NTPGP #### [facility] CLIA [id number] [address] [facility] [address] [place] CBC panel Auto (Bld)on 06-20 Erythrocyte distribution width (RBC) [Ratio] 13.0 % 11.5 - 15.0 % [facility] Hematocrit (Bld) [Volume fraction] 40.9 % 36.0 - 46.0 % [facility] Hemoglobin (Bld) [Mass/Vol] 13.0 g/dL 11.5 - 15.5 g/dL [facility] MCH (RBC) [Entitic mass] 28.0 pg 26.0 - 34.0 pg [facility] MCHC (RBC) [Mass/Vol] 31.8 g/dL 30.5 - 36.0 g/dL [facility] MCV (RBC) [Entitic vol] 88.1 fL 80.0 - 100.0 fL [facility] Platelet mean volume (Bld) [Entitic vol] 12.4 fL 9.0 - 12.7 fL [facility] Platelets (Bld) [#/Vol] 239 10*3/uL 150 - 400 k/uL [facility] RBC (Bld) [#/Vol] 4.64 10*6/uL 3.90 - 5.2 0 m/uL [facility] WBC (Bld) [#/Vol] 8.35 10*3/uL 3.70 - 11.00 k/uL [facility] Erythrocyte distribution width (RBC) [Ratio] 13.0 % Normal 11.5-15.0 [facility] Comment on above: Order Comment: Abundio ross Type: BLOOD SPECIMEN Ordering Facility: [facility] Address: [address] [place] [id number] Performed By: #### 5 8410-2 #### [facility] CLIA [id number] [address] [place] [address] OF [facility] Hematocrit (Bld) [Volume fraction] 40.9 % Normal 36.0-46.0 [facility] Comment on above: Order Comment: Speci men Type: BLOOD SPECIMEN Ordering Facility: [facility] Address: [address] [place] [address] Performed By: #### 5 8410-2 #### [facility] CLIA [id number] [address] [place] [address] [place] OF [facility] Hemoglobin (Bld) [Mass/Vol] 13.0 g/dL Normal 11.5-15.5 [facility] Comment on above: Order Comment: Speci men Type: BLOOD SPECIMEN Ordering Facility: [facility] Address: [address] [place] [address] Performed By: #### 5 8410-2 #### [facility] CLIA [id number] [address] [place] [address] [place] MCH (RBC) [Entitic mass] 28.0 pg Normal 26.0-34.0 [facility] Comment on above: Order Comment: Speci men Type: BLOOD SPECIMEN Ordering Facility: [facility] Address: [address] [place] [address] Performed By: #### 5 8410-2 #### [facility] CLIA [id number] [address] [place] MCHC (RBC) [Mass/Vol] 31.8 g/dL Normal 30.5-36.0 [facility] Comment on above: Order Comment: Speci men Type: BLOOD SPECIMEN Ordering Facility: [facility] Address: [address] [place] [address] Performed By: #### 5 8410-2 #### [facility] CLIA [id number] [address] [place] [address] [place] MCV (RBC) [Entitic vol] 88.1 fL Normal 80.0-100.0 [facility] Comment on above: Order Comment: Speci men Type: BLOOD SPECIMEN Ordering Facility: [facility] Address: [address] [place] [address] Performed By: #### 5 8410-2 #### [facility] CLIA [id number] [address] [place] [address] [place] Platelet mean volume (Bld) [Entitic vol] 12.4 fL Normal 9.0-12.7 [facility] Comment on above: Order Comment: Speci men Type: BLOOD SPECIMEN Ordering Facility: [facility] Address: [address] [place] [address] Performed By: #### 5 8410-2 #### [facility] CLIA [id number] [address] [place] [address] [place] Platelets (Bld) [#/Vol] 239 10*3/uL Normal 150-400 [facility] Comment on above: Order Comment: Speci men Type: BLOOD SPECIMEN Ordering Facility: [facility] Address: [address] [place] [address] Performed By: #### 5 8410-2 #### [facility] CLIA [id number] [address] [place] [address] [place] RBC (Bld) [#/Vol] 4.64 10*6/uL Normal 3.90-5.20 [facility] Comment on above: Order Comment: Speci men Type: BLOOD SPECIMEN Ordering Facility: [facility] Address: [address] [place] [address] Performed By: #### 5 8410-2 #### [facility] CLIA [id number] [address] [place] [address] [place] WBC (Bld) [#/Vol] 8.35 10*3/uL Normal 3.70-11.00 [facility] Comment on above: Order Comment: Speci men Type: BLOOD SPECIMEN Ordering Facility: [facility] Address: [address] [place] [address] Performed By: #### 5 8410-2 #### [facility] CLIA [id number] [address] [place] [address] [facility] Comprehensive metabolic 2000 panelon 06-20-2023 Albumin [Mass/Vol] 4.3 g/dL 3.9 - 4.9 g/dL [facility] ALP [Catalytic activity/Vol] 78 U/L 34 - 123 U/L [facility] ALT With P-5'-P [Catalytic activity/Vol] 11 U/L 7 - 38 U/L [facility] Anion gap [Moles/Vol] 10 mmol/L 9 - 18 mmol/L [facility] AST With P-5'-P [Catalytic activity/Vol] 16 U/L 13 - 35 U/L [facility] Bilirubin [Mass/Vol] 1.5 mg/dL High 0.2 - 1.3 mg/dL [facility] Calcium [Mass/Vol] 9.3 mg/dL 8.5 - 10.2 mg/dL [facility] Chloride [Moles/Vol] 103 mmol/L 97 - 105 mmol/L [facility] CO2 [Moles/Vol] 25 mmol/L 22 - 30 mmol/L [facility] Creatinine [Mass/Vol] 0.75 mg/dL 0.58 - 0.96 mg/dL [facility] Estimated Glomerular Filtration Rate 115 mL/min/1.73m >=60 mL/min/1.73 m [facility] Glucose [Mass/Vol] 83 mg/dL 74 - 99 mg/dL [facility] Potassium [Moles/Vol] 4.5 mmol/L 3.7 - 5.1 mmol/L [facility] Protein [Mass/Vol] 7.4 g/dL 6.3 - 8.0 g/dL [facility] Sodium [Moles/Vol] 138 mmol/L 136 - 144 mmol/L [facility] Urea nitrogen [Mass/Vol] 10 mg/dL 7 - 21 mg/dL [facility] Albumin [Mass/Vol] 4.3 g/dL Normal 3.9-4.9 [facility] Comment on above: Order Comment: Speci men Type: BLOOD SPECIMEN Ordering Facility: [facility] Address: [address] [place] [address] Performed By: #### 2 4323-8, 15953-1, 3016-3 #### [facility] CLIA [id number] [address] [place] [address] OF [facility] ALP [Catalytic activity/Vol] 78 U/L Normal 34-123 [facility] Comment on above: Order Comment: Speci men Type: BLOOD SPECIMEN Ordering Facility: [facility] Address: [address] [place] [address] Performed By: #### 2 4323-8, 23126-2, 3016-3 #### [facility] CLIA [id number] [address] [place] [address] [place] ALT With P-5'-P [Catalytic activity/Vol] 11 U/L Normal 7-38 [facility] Comment on above: Order Comment: Speci men Type: BLOOD SPECIMEN Ordering Facility: [facility] Address: [address] [place] [address] Performed By: #### 2 4323-8, 80734-5, 3016-3 #### [facility] CLIA [id number] [address] [place] [address] [place] Anion gap [Moles/Vol] 10 mmol/L Normal 9-18 [facility] Comment on above: Order Comment: Speci men Type: BLOOD SPECIMEN Ordering Facility: [facility] Address: [address] [place] [address] Performed By: #### 2 4323-8, 36366-9, 6-3 #### [facility] CLIA [id number] [address] [place] [address] [place] AST With P-5'-P [Catalytic activity/Vol] 16 U/L Normal 13-35 [facility] Comment on above: Order Comment: Speci men Type: BLOOD SPECIMEN Ordering Facility: [facility] Address: [address] [place] [address] Performed By: #### 2 4323-8, 27881-6, 3016-3 #### [facility] CLIA [id number] [address] [place] [address] [place] Bilirubin [Mass/Vol] 1.5 mg/dL High 0.2-1.3 [facility] Comment on above: Order Comment: Speci men Type: BLOOD SPECIMEN Ordering Facility: [facility] Address: [address] [place] [address] Performed By: #### 2 4323-8, 28500-4, 6-3 #### [facility] CLIA [id number] [address] [place] [address] [place] Calcium [Mass/Vol] 9.3 mg/dL Normal 8.5-10.2 [facility] Comment on above: Order Comment: Speci men Type: BLOOD SPECIMEN Ordering Facility: [facility] Address: [address] [place], [place] [address] Performed By: #### 2 4323-8, 37342-9, 3015-3 #### [facility] CLIA [id number] [address] [place] [address] [place] Chloride [Moles/Vol] 103 mmol/L Normal 97-105 [facility] Comment on above: Order Comment: Speci men Type: BLOOD SPECIMEN Ordering Facility: [facility] Address: [address] [place], [place] [address] Performed By: #### 2 4323-8, 02344-3, 3015-3 #### [facility] CLIA [id number] [address] [place] [address] [place] CO2 [Moles/Vol] 25 mmol/L Normal 22-30 [facility] Comment on above: Order Comment: Speci men Type: BLOOD SPECIMEN Ordering Facility: [facility] Address: [address] [place] [address] Performed By: #### 2 4323-8, 34667-2, 3015-3 #### [facility] CLIA [id number] [address] [facility] [place] [address] [place] Creatinine [Mass/Vol] 0.75 mg/dL Normal 0.58-0.96 [facility] Comment on above: Order Comment: Speci men Type: BLOOD SPECIMEN Ordering Facility: [facility] Address: [address] [place] [address] Performed By: #### 2 4323-8, 50873-0, 6-3 #### [facility] CLIA [id number] [address] [place] [address] [place] Creatinine and Glomerular filtration rate.predicted panel (S/P/Bld) 115 mL/min/1.73m??? Normal >=60 [facility] Comment on above: Order Comment: Abundio ross Type: BLOOD SPECIMEN Ordering Facility: [facility] Address: [address] [place] [address] Result Comment: Alena mated Glomerular Filtration Rate [...] actual GFR. Performed By: #### 2 4323-8, 68759-8, 3016-3 #### [facility] CLIA [id number] [address] [place] [address] [place] Glucose [Mass/Vol] 83 mg/dL Normal 74-99 [facility] Comment on above: Order Comment: Abundio ross Type: BLOOD SPECIMEN Ordering Facility: [facility] Address: [address] [place] [address] Result Comment: The [place] Diabetes Association (ADA) provides guidance for cutoff [...] Standards of Medical Care in Diabetes 2016, [place] Diabetes Association. Diabetes Care. 2016.39(Suppl 1). Performed By: #### 2 4323-8, 12980-7, 3016-3 #### [facility] CLIA [id number] [address] [place] [address] [place] Potassium [Moles/Vol] 4.5 mmol/L Normal 3.7-5.1 [facility] Comment on above: Order Comment: Speci men Type: BLOOD SPECIMEN Ordering Facility: [facility] Address: [address] [place] [address] Performed By: #### 2 4323-8, 64314-5, 6-3 #### [facility] CLIA [id number] [address] [place] [address] [place] Protein [Mass/Vol] 7.4 g/dL Normal 6.3-8.0 [facility] Comment on above: Order Comment: Speci men Type: BLOOD SPECIMEN Ordering Facility: [facility] Address: [address] [place] [address] Performed By: #### 2 4323-8, 61291-1, 3015-3 #### [facility] CLIA [id number] [address] [place], [place] [address] [place] [address] [place] [facility] Sodium [Moles/Vol] 138 mmol/L Normal 136-144 [facility] Comment on above: Order Comment: Speci men Type: BLOOD SPECIMEN Ordering Facility: [facility] Address: [address] [place] [address] Performed By: #### 2 4323-8, 85523-6, 3015-3 #### [facility] CLIA [id number] [address] [place] [address] [place] Urea nitrogen [Mass/Vol] 10 mg/dL Normal 7-21 [facility] Comment on above: Order Comment: Speci men Type: BLOOD SPECIMEN Ordering Facility: [facility] Address: [address] [place] [address] Performed By: #### 2 4323-8, 65318-8, 6-3 #### [facility] CLIA [id number] [address] [place] [address] [place] Lipid 1996 panelon 4 Cholesterol [Mass/Vol] 154 mg/dL <200 mg/dL [facility] Cholesterol in HDL [Mass/Vol] 50 mg/dL >39 mg/dL [facility] Cholesterol in LDL [Mass/Vol] 73 mg/dL <100 mg/dL [facility] Cholesterol in LDL/Cholesterol in HDL [Mass ratio] 1.46 {ratio} <2.54 [facility] Cholesterol in VLDL [Mass/Vol] 31 mg/dL High <30 mg/dL [facility] Cholesterol non HDL [Mass/Vol] 104 mg/dL <130 mg/dL [facility] Cholesterol.total /Cholesterol in HDL [Mass ratio] 3.08 {ratio} <5.10 [facility] Fasting Time 12 hrs [facility] Triglyceride [Mass/Vol] 155 mg/dL High <150 mg/dL [facility] Cholesterol [Mass/Vol] 154 mg/dL Normal <200 [facility] Comment on above: Order Comment: Abundio ross Type: BLOOD SPECIMEN Ordering Facility: [facility] Address: [address] [place] [address] Result Comment: <200 mg/dL, Desirable 200-239 mg/dL, Borderline high >239 mg/dL, High Performed By: #### 2 4323-8, 43431-8, 6-3 #### [facility] CLIA [id number] [address] [place] [address] [facility] Cholesterol in HDL [Mass/Vol] 50 mg/dL Normal >39 [facility] Comment on above: Order Comment: Abundio ross Type: BLOOD SPECIMEN Ordering Facility: [facility] Address: [address] [place] [address] Result Comment: 40-5 9 mg/dL, Acceptable >59 mg/dL, High: Negative risk factor for coronary heart disease <40 mg/dL, Low: Positive risk factor for coronary heart disease Performed By: #### 2 4323-8, 77526-6, 6-3 #### [facility] CLIA [id number] [address] [place] [address] [facility] Cholesterol in LDL [Mass/Vol] 73 mg/dL Normal <100 [facility] Comment on above: Order Comment: Abundio ross Type: BLOOD SPECIMEN Ordering Facility: [facility] Address: [address] [place] [address] Result Comment: <100 mg/dL, Optimal 100-129 mg/dL, Near optimal/above optimal 130-159 mg/dL, Borderline high 160-189 mg/dL, High >189 mg/dL, Very high Secondary prevention optimal LDL Cholesterol levels are recommended to be < 70 mg/dL Performed By: #### 2 4323-8, 54582-2, 3016-3 #### [facility] CLIA [id number] [address] [place] [address] [place] Cholesterol in LDL/Cholesterol in HDL [Mass ratio] 1.46 {ratio} Normal <2.54 [facility] Comment on above: Order Comment: Abundio ross Type: BLOOD SPECIMEN Ordering Facility: [facility] Address: [facility] [place] [address] Result Comment: Lea bryan: 1. National Cholesterol Education Program ATP III Guideline At-A-Glance Quick Desk Reference: National Heart, Lung, and Blood Stryker. National Institutes of Health. 2001: NIH Publication [...] and Adolescents: National Heart, Lung and Blood Stryker. Pediatrics. 2011:128(Suppl 5):R886-867. Performed By: #### 2 4323-8, 33572-5, 6-3 #### [facility] CLIA [id number] [address] [place] [address] [place] Cholesterol in VLDL [Mass/Vol] 31 mg/dL High <30 [facility] Comment on above: Order Comment: Abundio ross Type: BLOOD SPECIMEN Ordering Facility: [facility] Address: [address] [place] [address] Performed By: #### 2 4323-8, 55126-9, 6-3 #### [facility] CLIA [id number] [address] [place] [address] [place] Cholesterol non HDL [Mass/Vol] 104 mg/dL Normal <130 [facility] Comment on above: Order Comment: Abundio ross Type: BLOOD SPECIMEN Ordering Facility: [facility] Address: [address] [place] [address] Result Comment: <130 mg/dL, Optimal 130-159 mg/dL, Near optimal/above optimal 160-189 mg/dL, Borderline high 190-219 mg/dL, High >219 mg/dL, Very high Secondary prevention optimal non HDL Cholesterol levels are recommended to be <100 mg/dL Performed By: #### 2 4323-8, 18118-9, 3016-3 #### [facility] CLIA [id number] [address] [place] [address] [facility] Cholesterol.total /Cholesterol in HDL [Mass ratio] 3.08 {ratio} Normal <5.10 [facility] Comment on above: Order Comment: Abundio ross Type: BLOOD SPECIMEN Ordering Facility: [facility] Address: [address] [place] [address] Performed By: #### 2 4323-8, 29275-2, 6-3 #### [facility] CLIA [id number] [address] [place] [address] [facility] FASTING TIME 12 hrs Normal [facility] Comment on above: Order Comment: Abundio ross Type: BLOOD SPECIMEN Ordering Facility: [facility] Address: [address] [place] [address] Performed By: #### 2 4323-8, 88193-6, 3016-3 #### [facility] CLIA [id number] [address] [place] [address] [facility] Triglyceride [Mass/Vol] 155 mg/dL High <150 [facility] Comment on above: Order Comment: Abundio men Type: BLOOD SPECIMEN Ordering Facility: [facility] Address: [address] [place] [address] Result Comment: <150 mg/dL, Normal 150-199 mg/dL, Borderline high 200-499 mg/dL, High >499 mg/dL, Very high Performed By: #### 2 4323-8, 23074-2, 3016-3 #### [facility] CLIA [id number] [address] [place] [address] [facility] TOX SCREEN ROUT URon 024 Amphetamines Confirm (U) [Mass/Vol] Negative Normal Negative [facility] Comment on above: Order Comment: Speci men Type: URINE SPECIMEN Ordering Facility: [facility] Address: [address] [place] [address] Result Comment: Cuto ff threshold at 1000 ng/mL. Performed By: #### U TOX2 #### [facility] CLIA [id number] [address] [place] [address] [place] BARBITURATES, URINE Negative Normal Negative [facility] Comment on above: Order Comment: Speci men Type: URINE SPECIMEN Ordering Facility: [facility] Address: [address] [place] [address] Result Comment: Cuto ff threshold at 200 ng/mL. Performed By: #### U TOX2 #### [facility] CLIA [id number] [address] [place] [address] [place] BENZODIAZEPINES, UR Negative Normal Negative [facility] Comment on above: Order Comment: Speci men Type: URINE SPECIMEN [facility] Address: [address] [place] [address] Result Comment: Cuto ff threshold at 200 ng/mL. Performed By: #### U TOX2 #### [facility] CLIA [id number] [address] [place] [address] [place] Cannabinoids Screen Ql (U) Negative Normal Negative [facility] Comment on above: Order Comment: Speci men Type: URINE SPECIMEN Ordering Facility: [facility] Address: [address] [place] [address] Result Comment: Cuto ff threshold at 50 ng/mL. Performed By: #### U TOX2 #### [facility] CLIA [id number] [address] [place] [address] [place] Cocaine Ql (U) Negative Normal Negative [facility] Comment on above: Order Comment: Speci men Type: URINE SPECIMEN Ordering Facility: [facility] Address: [address] [place] [address] Result Comment: Cuto ff threshold at 300 ng/mL. Performed By: #### U TOX2 #### [facility] CLIA [id number] [address] [place] [address] [place] Ethanol (U) [Mass/Vol] <11 Normal <11 [facility] Comment on above: Order Comment: Speci men Type: URINE SPECIMEN Ordering Facility: [facility] Address: [address] [place] [address] Performed By: #### U TOX2 #### [facility] CLIA [id number] [address] [place] [id number] [facility] Opiates Screen Ql (U) Negative Normal Negative [facility] Comment on above: Order Comment: Speci men Type: URINE SPECIMEN Ordering Facility: [facility] Address: [address] [place] [address] Result Comment: Cuto ff threshold at 300 ng/mL. Performed By: #### U TOX2 #### [facility] CLIA [id number] [address] [place] [id number] [facility] oxyCODONE cutoff Screen (U) [Mass/Vol] Negative Normal Negative [facility] Comment on above: Order Comment: Speci men Type: URINE SPECIMEN Ordering Facility: [facility] Address: [address] [place] [address] Result Comment: Cuto ff threshold at 100 ng/mL. Performed By: #### U TOX2 #### [facility] CLIA [id number] [address] [place] [address] [facility] Phencyclidine Ql (U) Negative Normal Negative [facility] Comment on above: Order Comment: Speci men Type: URINE SPECIMEN Ordering Facility: [facility] Address: [address] [place] [address] Result Comment: Cuto ff threshold at 25 ng/mL. Performed By: #### U TOX2 #### [facility] CLIA [id number] [address] [place] [phone] [place] TSH BLDon 02-24-2024 TSH Qn 1.580 m[IU]/L 0.270 - 4.200 mIU/L [facility] TSH SerPl-aCncon 06-20-2023 TSH Qn 1.580 m[IU]/L Normal 0.270-4.200 [facility] Comment on above: Order Comment: Speci men Type: BLOOD SPECIMEN Ordering Facility: [facility] Address: [address], [place] [address] Result Comment: If t he patient is , TSH reference range varies by gestational period: First Trimester (weeks 9-12): 0.180-2.990 mIU/L Second Trimester: 0.110-3.980 mIU/L Third Trimester: 0.480-4.710 mIU/L Camilo Augustine et al. A Practical Approach for the Verifications and Determination of Site- and Trimester-Specific Reference Intervals for Thyroid Function tests in . Thyroid, 2019:29:3:412-420. Hawk Cook, et al. 2017 Guidelines of the [place] Thyroid Association for the Diagnosis and Management of Thyroid Disease during and the . Thyroid, 2017:27:3:315-389. Performed By: #### 2 4323-8, 90288-2, 3016-3 #### [facility] CLIA [id number] [address] [place] [address] [facility] Debra 06-18-2023 KRISTINN Telephone (EVY) EVELINA SAM ([id number]) 89 F Date Time Provider Department 06/18/23 [...] [R76.12] Order(s):BLOOD TB SCREEN [SQINFTBP] Order #: [id number] FUTURE TOX SCREEN ROUT UR [SQUTOX2] Order #: [id number] FUTURE Prescriptions as of 06/18/2023 - multivitamin [...] Encounter Status:Closed by АННА LÓPEZ on 06/18/23 [facility] 06-16-2023 CNOV Office Visit (ARMANDO SCHMID) EVELINA SAM ([id number]) 89 F Date Time Provider Department 06/16/23 [...] history and updated the Histories section of [facility]. 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 Normal [facility] CANDY FORMING MACHINE OPERATOR - Office Visiton 03-27 CANDY FORMING MACHINE OPERATOR - Office Visit Diagnoses/Problems Assessed Lichen sclerosus [...] here for follow up for on medication Ethologist declined Teri Collins CMA History of Present [...] month Vitals Vital Signs Recorded: 07Apr2022 04:10PM Xlghyxxx026 Lifhrfden42 Height5 ft 10 in Hxfqwf551 lb 1 oz BMI C (more content not included)... 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 Normal [facility] Tobacco Screening.on 022 Fall risk assessment a) No falls within the last year BW-ULXCT-Cjab [place] 300 Work Phone: Last menstrual period start date 22Aug2021 UX-ZYHQU-Gzrv [place] 300 Work Phone: Tobacco use status [facility] b) No DQ-XZMQA-Ozit [place] 300 Work Phone: COMPREHENSIVE PANELon 2021 Albumin [Mass/Vol] 4.3 g/dL Normal 3.4 - 5.0 [facility] Comment on above: Performed By: #### C MP #### [facility] [address] [place] [address] ALP [Catalytic activity/Vol] 64 U/L Normal 33 - 110 [facility] Comment on above: Performed By: #### C MP #### [facility] [address] [place] [address] ALT [Catalytic activity/Vol] 23 U/L Normal 7 - 45 [facility] Comment on above: Result Comment: Almita ents treated with Sulfasalazine may generate falsely decreased results for ALT. Performed By: #### C MP #### [facility] [address] [place] [address] Anion gap [Moles/Vol] 15 mmol/L Normal 10 - 20 [facility] Comment on above: Performed By: #### C MP #### [facility] [address] [place] [address] AST [Catalytic activity/Vol] 19 U/L Normal 9 - 39 [facility] Comment on above: Performed By: #### C MP #### [facility] [address] [place] [address] Bilirubin [Mass/Vol] 1.4 mg/dL High 0.0 - 1.2 [facility] Comment on above: Performed By: #### C MP #### [facility] [address] [place] [address] Calcium [Mass/Vol] 9.5 mg/dL Normal 8.6 - 10.6 [facility] Comment on above: Performed By: #### C MP #### [facility] [address] [place] [address] Chloride [Moles/Vol] 104 mmol/L Normal 98 - 107 [facility] Comment on above: Performed By: #### C MP #### [facility] [address] [place] [address] Creatinine [Mass/Vol] 0.67 mg/dL Normal 0.50 - 1.05 [facility] Comment on above: Performed By: #### C MP #### [facility] [address] [place] [address] eGFR FEMALE >90 Normal >90 [facility] Comment on above: Result Comment: CALC ULATIONS OF ESTIMATED GFR ARE PERFORMED USING THE 2020 CKD-EPI STUDY REFIT EQUATION WITHOUT THE RACE VARIABLE FOR THE IDMS-TRACEABLE CREATININE METHODS. https://jasn.asnjournals.org/content//ASN.1038355363 Performed By: #### C MP #### [facility] [address] [place] [address] Glucose [Mass/Vol] 74 mg/dL Normal 74 - 99 [facility] Comment on above: Performed By: #### C MP #### [facility] [address] [place] [address] HCO3 (Bld) [Moles/Vol] 26 mmol/L Normal 21 - 32 [facility] Comment on above: Performed By: #### C MP #### [facility] [address] [place] [address] Potassium [Moles/Vol] 4.5 mmol/L Normal 3.5 - 5.3 [facility] Comment on above: Performed By: #### C MP #### [facility] [address] [place] [address] Protein [Mass/Vol] 6.9 g/dL Normal 6.4 - 8.2 [facility] Comment on above: Performed By: #### C MP #### [facility] [address] [place] [address] Sodium [Moles/Vol] 140 mmol/L Normal 136 - 145 [facility] Comment on above: Performed By: #### C MP #### [facility] [address] [place] [address] Urea nitrogen [Mass/Vol] 13 mg/dL Normal 6 - 23 [facility] Comment on above: Performed By: #### C MP #### [facility] [address] [place] [address] Laboratory - Chemistry and C hemistry - challengeon 07-09-2021 Albumin BCP dye [Mass/Vol] 4.3 g/dL 3.4 - 5.0 -[facility] DO Work Phone: ALP [Catalytic activity/Vol] 64 U/L 33 - 110 -[facility] Hts 100 DO Work Phone: ALT With P-5'-P [Catalytic activity/Vol] 23 U/L 7 - 45 -[facility] 100 DO Work Phone: Comment on above: Patients treated wit h Sulfasalazine may generate falsely decreased results for ALT. Anion gap [Moles/Vol] 15 mmol/L 10 - 20 -[facility] 100 DO Work Phone: AST With P-5'-P [Catalytic activity/Vol] 19 U/L 9 - 39 -[facility] 100 DO Work Phone: Bilirubin [Mass/Vol] 1.4 mg/dL above high threshold 0.0 - 1.2 [facility] 100 DO Work Phone: Calcium [Mass/Vol] 9.5 mg/dL 8.6 - 10.6 [facility] 100 DO Work Phone: Chloride [Moles/Vol] 104 mmol/L 98 - 107 [facility] 100 DO Work Phone: CO2 [Moles/Vol] 26 mmol/L 21 - 32 [facility] 100 DO Work Phone: Creatinine [Mass/Vol] 0.67 mg/dL See Below [facility] 100 DO Work Phone: Comment on above: Reference Range: 0.5 0 - 1.05 Glucose [Mass/Vol] 74 mg/dL 74 - 99 [facility] 100 DO Work Phone: Potassium [Moles/Vol] 4.5 mmol/L 3.5 - 5.3 [facility] DO Work Phone: Protein [Mass/Vol] 6.9 g/dL 6.4 - 8.2 [facility] 100 DO Work Phone: Sodium [Moles/Vol] 140 mmol/L 136 - 145 [facility] 100 DO Work Phone: Urea nitrogen [Mass/Vol] 13 mg/dL 6 - 23 [facility] 100 DO Work Phone: No Panel Informationon 07-09 >90 >90 [facility] 100 DO Work Phone: Comment on above: CALCULATIONS OF ALENA MATED GFR ARE PERFORMED USING THE 2020 CKD-EPI STUDY REFIT EQUATION WITHOUT THE RACE VARIABLE FOR THE IDMS-TRACEABLE CREATININE METHODS.https://jasn.asnjournals.org/content/early//ASN.20 93511471 Office Visiton 07-09-2021 Follow-up visit Diagnoses/Problems PCOS [...] follow up to PCOS--cmb History of Present Fomimms53-uklq-izb here for f/u PCOS. 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 Normal [facility] Tobacco Screening.on 022 Fall risk assessment a) No falls within the last year [employer] 300 Work Phone: Tobacco use status [facility]PHS b) No TB-FDQHJ-Rfkl [place] 300 Work Phone: TESTOST,FREE AND TOTALon TESTOSTERONE TOT.LC/MS/MS 27 ng/dL Normal 2-45 [facility] Comment on above: Result Comment: For additional information, please refer to http://education.Resilience/faq/ PhckxAauixhdntnvjOVVUZDKRD418 (This link is being provided for informational/ educational purposes only.) This test was developed and its analytical performance characteristics have been determined by [employer]. It has not been cleared or approved by the U.S. Food and Drug Administration. This assay has been validated pursuant to the CLIA regulations and is used for clinical purposes. Performed By: #### T ESFT #### [employer] [place] [id number] [place], [place] TESTOSTERONE,FREE 2.3 pg/mL Normal 0.1-6.4 [facility] Comment on above: Result Comment: This test was developed and its analytical performance characteristics have been determined by [employer] [place], [place]. It has not been cleared or approved by the U.S. Food and Drug Administration. This assay has been validated pursuant to the CLIA regulations and is used for clinical purposes. Performed By: #### T ESFT #### [employer] [address] 17-HYDROXYPROGESTERONEon 17-HYDROXYPROGEST ERONE 18 ng/dL Normal [facility] Comment on above: Result Comment: [...] Endocrinol Metab. 1991;73:674-686; J Clin Endocrinol Metab. 1989;69;0349-3655; J Clin Endocrinol Metab. 1994;78:226-270. Pediatr Res 1988;23:525-529. MedLinePlus (accessed 10/10/13). This test was developed and its analytical performance characteristics have been determined by [employer] [place], [place]. It has not been cleared or approved by the U.S. Food and Drug Administration. This assay has been validated pursuant to the CLIA regulations and is used for clinical purposes. Performed By: #### 1 7OHP #### [employer] [facility] [address] [place], [place] COMPREHENSIVE PANELon 2020 Albumin [Mass/Vol] 4.0 g/dL Normal 3.4 - 5.0 [facility] Comment on above: Performed By: #### C MP #### [facility] [address] [place] [address] ALP [Catalytic activity/Vol] 64 U/L Normal 33 - 110 [facility] Comment on above: Performed By: #### C MP #### [facility] [address] [place] [address] ALT [Catalytic activity/Vol] 15 U/L Normal 7 - 45 [facility] Comment on above: Result Comment: Almita ents treated with Sulfasalazine may generate falsely decreased results for ALT. Performed By: #### C MP #### [facility] [address] [place] [address] Anion gap [Moles/Vol] 12 mmol/L Normal 10 - 20 [facility] Comment on above: Performed By: #### C MP #### [facility] [address] [place] [address] AST [Catalytic activity/Vol] 17 U/L Normal 9 - 39 [facility] Comment on above: Performed By: #### C MP #### [facility] [address] [place] [address] Bilirubin [Mass/Vol] 1.1 mg/dL Normal 0.0 - 1.2 [facility] Comment on above: Performed By: #### C MP #### [facility] [address] [place] [address] Calcium [Mass/Vol] 9.3 mg/dL Normal 8.6 - 10.6 [facility] Comment on above: Performed By: #### C MP #### [facility] [address] [place] [address] Chloride [Moles/Vol] 106 mmol/L Normal 98 - 107 [facility] Comment on above: Performed By: #### C MP #### [facility] [address] [place] [address] Creatinine [Mass/Vol] 0.72 mg/dL Normal 0.50 - 1.05 [facility] Comment on above: Performed By: #### C MP #### [facility] [address] [place] [address] GFR- AM. >60 Normal >60 [facility] Comment on above: Result Comment: CALC ULATIONS OF ESTIMATED GFR ARE PERFORMED USING THE MDRD STUDY EQUATION FOR THE IDMS-TRACEABLE CREATININE METHODS. CLIN CHEM 2007;53:766-72 Performed By: #### C MP #### [facility] [address] [place] [address] GFR-NON AM. >60 Normal >60 [facility] Comment on above: Performed By: #### C MP #### [facility] [address] [place] [address] Glucose [Mass/Vol] 87 mg/dL Normal 74 - 99 [facility] Comment on above: Performed By: #### C MP #### [facility] [address] [place] [address] HCO3 (Bld) [Moles/Vol] 28 mmol/L Normal 21 - 32 [facility] Comment on above: Performed By: #### C MP #### [facility] [address] [place] [address] Potassium [Moles/Vol] 4.6 mmol/L Normal 3.5 - 5.3 [facility] Comment on above: Performed By: #### C MP #### [facility] [address] [place] [address] Protein [Mass/Vol] 7.1 g/dL Normal 6.4 - 8.2 [facility] Comment on above: Performed By: #### C MP #### [facility] [address] [place] [address] Sodium [Moles/Vol] 141 mmol/L Normal 136 - 145 [facility] Comment on above: Performed By: #### C MP #### [facility] [address] [place] [address] Urea nitrogen [Mass/Vol] 11 mg/dL Normal 6 - 23 [facility] Comment on above: Performed By: #### C MP #### [facility] [address] [place] [address] DHEA SULFATEon 04-09-2021 DHEA SULFATE 109 ug/dL Normal 65 - 395 [facility] Comment on above: Result Comment: [facility]-BASED REFERENCE RANGES: PUBERTAL (JOSS) STAGE MALE [...] information. Performed By: #### D HEAS #### [facility] [address] [place] [address] HEMOGLOBIN A1Con 04-09-2021 Glucose [Mass/Vol] 108 mg/dL Normal [facility] Comment on above: Performed By: #### H BA1E #### [facility] [address] [place] [address] HbA1c (Bld) [Mass fraction] 5.4 % Normal [facility] Comment on above: Result Comment: Diag nosis of Diabetes-Adults Non-Diabetic: < or = 5.6% Increased risk for developing diabetes: 5.7-6.4% Diagnostic of diabetes: > or = 6.5% . Monitoring of Diabetes Age (y) Therapeutic Goal (%) Adults: >18 <7.0 Pediatrics: 13-18 <7.5 7-12 <8.0 0- 6 7.5-8.5 [place] [employer]. Diabetes Care 33(S1), Apr 2009. Performed By: #### H BA1E #### [facility] [address] [place] [address] PROLACTINon 04-09-2021 PROLACTIN 7.2 ug/L Normal 3.0 - 20.0 [facility] Comment on above: Performed By: #### P ROL #### [facility] [address] [place] [address] TSH WITH REFLEX TO FREE T4 I F ABNORMALon 04-09-2021 TSH Qn 1.16 m[IU]/L Normal 0.44 - 3.98 [facility] Comment on above: Result Comment: TSH testing is performed using different testing methodology at [facility]3] than at other [facility]. Direct result comparisons should only be made within the same method. Performed By: #### T HYDS #### [facility] [address] [place] [address] 17-Hydroxyprogesterone, Seru mon 04-08-2021 17-Hydroxyprogest erone [Mass/Vol] 18 ng/dL [facility] cardoza Work Phone: Comment on above: Unable [...] Endocrinol Metab. 1991;73:674-686; J Clin Endocrinol Metab. 1989;69;3142-0696; J Clin Endocrinol Metab. 1994;78:226-270. Pediatr Res 1988;23:525-529. MedLinePlus (accessed 10/10/13). This test was developed and its analytical performancecharacteristics have been determined by [employer] [place], [place]. It hasnot been cleared or approved by the U.S. Food and DrugAdministration. This assay has been validated pursuantto the CLIA regulations and is used for clinicalpurposes. DHEA Sulfate, Serumon 2020 DHEA-S [Mass/Vol] 109 ug/dL 65 - 395 [employer] Work Phone: Comment on above: MATURITY-BASED REFER [...] Hemoglobin A1Con 04-08-2021 Glucose [Mass/Vol] 108 mg/dL [employer] Work Phone: HbA1c (Bld) [Mass fraction] 5.4 % [employer] Work Phone: Comment on above: Diagnosis of Diabete s-Adults Non-Diabetic: < or = 5.6% Increased risk for developing diabetes: 5.7-6.4% Diagnostic of diabetes: > or = 6.5%. Monitoring of Diabetes Age (y) Therapeutic Goal (%) Adults: >18 <7.0 Pediatrics: 13-18 <7.5 7-12 <8.0 0- 6 7.5-8.5 [place] [employer]. Diabetes Care 33(S1), Apr 2009. Laboratory - Chemistry and C hemistry - challengeon 12-13-2021 Albumin BCP dye [Mass/Vol] 4.0 g/dL 3.4 - 5.0 -[facility] Work Phone: ALP [Catalytic activity/Vol] 64 U/L 33 - 110 -[facility] [employer] Work Phone: ALT With P-5'-P [Catalytic activity/Vol] 15 U/L 7 - 45 -[facility] [employer] Work Phone: Comment on above: Patients treated wit h Sulfasalazine may generate falsely decreased results for ALT. Anion gap [Moles/Vol] 12 mmol/L 10 - 20 -[facility] [employer] Work Phone: AST With P-5'-P [Catalytic activity/Vol] 17 U/L 9 - 39 -[facility] [employer] Work Phone: Bilirubin [Mass/Vol] 1.1 mg/dL 0.0 - 1.2 -[facility] [employer] Work Phone: Calcium [Mass/Vol] 9.3 mg/dL 8.6 - 10.6 -[facility] [employer] Work Phone: Chloride [Moles/Vol] 106 mmol/L 98 - 107 -[facility] [employer] Work Phone: CO2 [Moles/Vol] 28 mmol/L 21 - 32 -[facility] [employer] Work Phone: Creatinine [Mass/Vol] 0.72 mg/dL See Below ContappsMRSA DennisNc [employer] Work Phone: Comment on above: Reference Range: 0.5 0 - 1.05 Glucose [Mass/Vol] 87 mg/dL 74 - 99 LISA-MRSA [facility] [employer] Work Phone: Potassium [Moles/Vol] 4.6 mmol/L 3.5 - 5.3 -[facility] [employer] Work Phone: Protein [Mass/Vol] 7.1 g/dL 6.4 - 8.2 [facility] Work Phone: Sodium [Moles/Vol] 141 mmol/L 136 - 145 [facility] [facility] Work Phone: Testosterone [Mass/Vol] 27 ng/dL 2-45 [facility] Work Phone: Comment on above: For additional infor lena, please refer tohttp://education.Resilience/faq/TotalTestosteroneLCMSMSF AQ165(This link is being provided for informational/educational purposes only.) This test was developed and its analytical performancecharacteristics have been determined by [employer] [place]. It hasnot been cleared or approved by the U.S. Food and DrugAdministration. This assay has been validated pursuantto the CLIA regulations and is used for clinicalpurposes. Testosterone Free [Mass/Vol] 2.3 pg/mL 0.1-6.4 MP-MRSA [facility] lesrbrokrant[facility] Work Phone: Comment on above: This test was develo ped and its analytical performancecharacteristics have been determined by [employer] [place], [place]. It hasnot been cleared or approved by the U.S. Food and DrugAdministration. This assay has been validated pursuantto the CLIA regulations and is used for clinicalpurposes. TSH Qn 1.16 m[IU]/L See Below [facility] Work Phone: Comment on above: Reference Range: 0.4 4 - 3.98 TSH testing is performed using different testing methodology at [facility]3] than at other [facility] hospitals. Direct result comparisons should only be [...] Serum; Status:In Progress - Specimen/Data Collected; Done: [id number] Comprehensive Metabolic Panel; Status:In Progress - Specimen/Data Collected; Done: [id number] DHEA Sulfate, Serum; Status:In Progress - Specimen/Data Collected; Done: [id number] Hemoglobin A1C; Status:In Progress - Specimen/Data Collected; Done: [id number] Prolactin, Serum; Status:In Progress - Specimen/Data Collected; Done: [id number] Testosterone Free + Total; Status:In Progress - Specimen/Data Collected; Done: [id number] TSH WITH REFLEX TO FREE T4 IF ABNORMAL; Status:In Progress - Specimen/Data Collected; Done: [id number] Patient Discussion/Summary Blood work today Plan based [...] on lab evaluation 1 Amended By: Josef Plata; Apr 15 2021 10:57 AM ESTChief Complaint patient is here for an endocrine consult for PCOS. Patient was referred by Delroy Gross--fabien chirinos History of Present Vlhsqqj25-pyxd-hwa referred by Dilan Gross CNP for evaluation [...] currently sexuall (more content not included)... [facility] Prolactin, Serumon Prolactin [Mass/Vol] 7.2 ug/L 3.0 - 20.0 [facility] Work Phone: Cult, Fungus, yeast onlyon 1 05-28-2020 Yeast Org specific cx Ql (Unsp spec) QU-TJXRE-Tnme [address] Work Phone: Tobacco Screening.on 021 Fall risk assessment a) No falls within the last year EO-UPMMM-FbtaiBuildApp 300 Work Phone: Last menstrual period start date 02Mar2021 TX-IYXBM-Eccq [address] Work Phone: Tobacco use status CPHS b) No LG-AVXEU-Hvca [address] Work Phone: Cult, Fungus, yeast onlyon 1 Yeast Org specific cx Ql (Unsp spec) TD-SFRRR-Pelv [address] Work Phone: Tobacco Screening.on 021 Fall risk assessment a) No falls within the last year EL-OSVXN-Cger [address] Work Phone: Last menstrual period start date [id number] PJ-FLHXQ-Vlei [address] Work Phone: Tobacco use status CP b) No WA-RTSRD-Emde [address] Work Phone: BASIC METABOLIC PANELon 01-26 0-2019 Anion gap [Moles/Vol] 10 mmol/L Normal 10 - 20 [facility] Comment on above: Performed By: #### B MP #### [address] [address] Calcium [Mass/Vol] 9.1 mg/dL Normal 8.6 - 10.3 [facility] Comment on above: Performed By: #### B MP #### [address] [address] Chloride [Moles/Vol] 106 mmol/L Normal 98 - 107 [facility] Comment on above: Performed By: #### B MP #### [address] [address] Creatinine [Mass/Vol] 0.65 mg/dL Normal 0.50 - 1.05 [facility] Comment on above: Performed By: #### B MP #### [address] [address] GFR- AM. >60 Normal >60 [facility] Comment on above: Result Comment: CALC ULATIONS OF ESTIMATED GFR ARE PERFORMED USING THE MDRD STUDY EQUATION FOR THE IDMS-TRACEABLE CREATININE METHODS. CLIN CHEM 2007;53:766-72 Performed By: #### B MP #### [address] [address] GFR-NON AM. >60 Normal >60 [facility] Comment on above: Performed By: #### B MP #### [address] [address] Glucose [Mass/Vol] 89 mg/dL Normal 74 - 99 [facility] Comment on above: Performed By: #### B MP #### [address] [address] HCO3 (Bld) [Moles/Vol] 24 mmol/L Normal 21 - 32 [facility] Comment on above: Performed By: #### B MP #### [address] [address] Potassium [Moles/Vol] 4.3 mmol/L Normal 3.5 - 5.3 [facility] Comment on above: Performed By: #### B MP #### [address] [address] Sodium [Moles/Vol] 136 mmol/L Normal 136 - 145 [facility] Comment on above: Performed By: #### B MP #### [address] [address] Urea nitrogen [Mass/Vol] 12 mg/dL Normal 6 - 23 [facility] Comment on above: Performed By: #### B MP #### [address] [address] CBC AND DIFFERENTIALon 02-13 Basophils (Bld) [#/Vol] 0.10 10*3/uL Normal 0.00 - 0.10 [facility] Comment on above: Performed By: #### C BCDF #### [address] [address] Basophils/100 WBC (Bld) 0.5 % Normal 0.0 - 2.0 [facility] Comment on above: Performed By: #### C BCDF #### [address] [address] Eosinophils (Bld) [#/Vol] 0.10 10*3/uL Normal 0.00 - 0.70 [facility] Comment on above: Performed By: #### C BCDF #### [address] [address] Eosinophils/100 WBC (Bld) 0.5 % Normal 0.0 - 6.0 [facility] Comment on above: Performed By: #### C BCDF #### [address] [address] Erythrocyte distribution width (RBC) [Ratio] 12.8 % Normal 11.5 - 14.5 [facility] Comment on above: Performed By: #### C BCDF #### [address] [address] Hematocrit (Bld) [Volume fraction] 40.7 % Normal 36.0 - 46.0 [facility] Comment on above: Performed By: #### C BCDF #### [address] [address] Hemoglobin (Bld) [Mass/Vol] 13.3 g/dL Normal 12.0 - 16.0 [facility] Comment on above: Performed By: #### C BCDF #### [address] [address] Lymphocytes (Bld) [#/Vol] 1.80 10*3/uL Normal 1.20 - 4.80 [facility] Comment on above: Performed By: #### C BCDF #### [address] [address] Lymphocytes/100 WBC (Bld) 15.6 % Normal 13.0 - 44.0 [facility] Comment on above: Performed By: #### C BCDF #### [address] [address] MCHC (RBC) [Mass/Vol] 32.7 g/dL Normal 32.0 - 36.0 [facility] Comment on above: Performed By: #### C BCDF #### [address] [address] MCV (RBC) [Entitic vol] 88 fL Normal 80 - 100 [facility] Comment on above: Performed By: #### C BCDF #### [address] [address] Monocytes (Bld) [#/Vol] 0.50 10*3/uL Normal 0.10 - 1.00 [facility] Comment on above: Performed By: #### C BCDF #### [address] [address] Monocytes/100 WBC (Bld) 4.0 % Normal 2.0 - 10.0 [facility] Comment on above: Performed By: #### C BCDF #### [address] [address] Neutrophils (Bld) [#/Vol] 9.10 10*3/uL High 1.20 - 7.70 [facility] Comment on above: Result Comment: Perc ent differential counts (%) should be interpreted in the context of the absolute cell counts (cells/L). Performed By: #### C BCDF #### [address] [address] Neutrophils/100 WBC (Bld) 79.4 % Normal 40.0 - 80.0 [facility] Comment on above: Performed By: #### C BCDF #### [address] [address] Nucleated RBC/100 WBC (Bld) [Ratio] 0.1 /100 WBC Normal [facility] Comment on above: Performed By: #### C BCDF #### [address] [address] Platelets (Bld) [#/Vol] 223 10*3/uL Normal 150 - 450 [facility] Comment on above: Performed By: #### C BCDF #### [address] [address] RBC (Bld) [#/Vol] 4.60 x10E12/L Normal 4.00 - 5.20 [facility] Comment on above: Performed By: #### C BCDF #### [address] [address] WBC (Bld) [#/Vol] 11.5 10*3/uL High 4.4 - 11.3 [facility] Comment on above: Performed By: #### C BCDF #### [address] [address] [address] ABDOMEN AND PELVIS W IV C [facility] 02-14-2020 CT ABDOMEN AND PELVIS W IV CONTRAST Patient Name: EVELINA SAM STUDY: CT ABDOMEN AND PELVIS W IV CONTRAST; 02/14/2020 1:48 pm INDICATION: abd pain. COMPARISON: 12/2014 ACCESSION NUMBER(S): [id number] ORDERING CLINICIAN: JESS FRANKLIN TECHNIQUE: CT of [...] Electronically signed by: SHERRI KIRK MD Normal [facility] HCG,URINEon 02-14-2020 Beta HCG ( test) Ql (U) Negative Normal Negative [facility] Comment on above: Performed By: #### H CGU #### [place] [address] HEPATIC FUNCTION PANELon Albumin [Mass/Vol] 4.0 g/dL Normal 3.4 - 5.0 [facility] Comment on above: Performed By: #### H EPFP #### [place] [address] ALP [Catalytic activity/Vol] 46 U/L Normal 33 - 110 [facility] Comment on above: Performed By: #### H EPFP #### [place] [address] ALT [Catalytic activity/Vol] 11 U/L Normal 7 - 45 [facility] Comment on above: Result Comment: Almita ents treated with Sulfasalazine may generate falsely decreased results for ALT. Performed By: #### H EPFP #### [place] [address] AST [Catalytic activity/Vol] 14 U/L Normal 9 - 39 [facility] Comment on above: Performed By: #### H EPFP #### [place] [id number] Bilirubin [Mass/Vol] 1.2 mg/dL Normal 0.0 - 1.2 [facility] Comment on above: Performed By: #### H EPFP #### [address] [address] Bilirubin.direct [Mass/Vol] 0.2 mg/dL Normal 0.0 - 0.3 [facility] Comment on above: Performed By: #### H EPFP #### [address] [address] Protein [Mass/Vol] 7.0 g/dL Normal 6.4 - 8.2 [facility] Comment on above: Performed By: #### H EPFP #### [place] [id number] LACTATEon 02-14-2020 Lactate [Moles/Vol] 1.1 mmol/L Normal 0.4 - 2.0 [facility] Comment on above: Result Comment: Alena puncture immediately after or during the administration of Metamizole may lead to falsely low results. Testing should be performed immediately prior to Metamizole dosing. Performed By: #### L ACT #### [place] [id number] LIPASEon 02-14-2020 Lipase [Catalytic activity/Vol] 18 U/L Normal 9 - 82 [facility] Comment on above: Result Comment: Alena puncture immediately after or during the administration of Metamizole may lead to falsely low results. Testing should be performed immediately prior to Metamizole dosing. S-zlflwe-m-benzoquinone imine (metabolite of Acetaminophen) will generate erroneously low results in samples for patients that have taken toxic doses of acetaminophen. Performed By: #### L IPAS #### [place] [id number] Provider Note - ED v2on 01-26 Provider [...] made to minimize errors. Minor errors in senior ecologist may be present. Please call if questions.. 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) Is : no(1) RESULTS/VITAL SIGNS RESULTS: Recent Lab Results: I have reviewed these laboratory results: Urine Test 14-Feb-2020 11:59:00 ResultValue HCG, Urine NEGATIVE Urinalysis 14-Feb-2020 11:59:00 ResultValue Color, Urine Yellow Reference Range: STRAW,YELLOW Appearance, Urine HAZY Specific [place], Urine 1.027 pH, Urine 6.0 Protein, Urine [...] SIGNS: T PRBP SpO2O2(LPM) %FiO2 Method 14-Feb-2020 13:50:00-7131613/65 96 room air, no respiratory support 14-Feb-2020 12:00:00-4610788/63 99 room air, no respiratory support 14-Feb-2020 10:26:00-36.94138016/78 98 room air, no respiratory support MEDICAL [...] Referenced From Triage - ED 14-Feb-2020 10:26 [facility] Risk Screen - Adult Emergenc yon 02-14-2020 Risk Screen - Adult Emergency Preferred Language: Preferred Language: Preferred Language for Discussing Health Care (patient/designee)Belgian Advanced Directives: Advance Directive/DNRno Family Violence Adult: Abuse Screen: Are you or have you been threatened or abused physically, emotionally, or sexually by anyoneno Learning Assessment (Patient): Learning Assessment (Patient): Patient is Able to be Assessed for Learningyes Factors Influencing Readiness to Learnacuteness of illness Factors that Impact Ability to Learnnone Devices/Methods Used to Communicatenone Learning Preferencesaudio Cultural Considerationsnone Developmental Considerationsnone Yarsani Considerationsnone Learning Assessment (Other Learner): Learning Assessment (Other Learner): Other learner availableno Pressure Injury/TB/Substance: Pressure Injury: Pressure Injury Present on Admissionno Do you have a coughno Admission Risk Screen: Significant IndicatorsComplete CAGE: CAGE: Is this an injured patient at a Trauma Center ([facility]/[place]): no Electronic Signatures: Hannah Briseno (HARJINDER) (Signed 14-Feb-2020 10:29) Authored: Preferred Language, Advanced Directives, Family Violence Adult, Learning Assessment (Patient), Learning Assessment (Other Learner), Pressure Injury/TB/Substance, Pressure Injury, CAGE Last Updated: 14-Feb-2020 10:29 by Hannah Briseno (HARJINDER) [facility] Triage - EDon 02-14-2020 Triage - [...] BMI (kg/m2): 34.163 Calculated BSA (m2) 2.31 [place] Coma Scale: Best Eye Response: (E4) spontaneous [...] 14-Feb-2020 10:28 by Hannah Briseno (RN) Normal [facility] UA MICROSCOPICon 02-14-2020 BACTERIA 1+ /HPF Abnormal [facility] Comment on above: Performed By: #### U AMIC ####[place] [address] MUCUS 2+ /LPF Normal [facility] Comment on above: Performed By: #### U AMIC ####[place] [address] RBC 5 /HPF Normal 0-5 [facility] Comment on above: Performed By: #### U AMIC ####[place] [address] SQUAMOUS EPITH. CELLS 15 /HPF Normal [facility] Comment on above: Performed By: #### U AMIC ####[place] [address] WBC 6 /HPF Abnormal 0-5 [facility] Comment on above: Performed By: #### U AMIC ####[place] [id number] URINALYSISon 02-14-2020 Appearance (U) HAZY Normal CLEAR [facility] Comment on above: Performed By: #### U A #### [address] [address] Bilirubin (U) [Mass/Vol] Negative Normal NEGATIVE [facility] Comment on above: Performed By: #### U A #### [place] [address] BLOOD SMALL(1+) Abnormal NEGATIVE [facility] Comment on above: Performed By: #### U A #### [address] [address] Color (U) Yellow Normal STRAW,YELLO W [facility] Comment on above: Performed By: #### U A #### [place] [address] Glucose [Mass/Vol] Negative Normal NEGATIVE [facility] Comment on above: Performed By: #### U A #### [place] [id number] Ketones Ql (U) Negative Normal NEGATIVE [facility] Comment on above: Performed By: #### U A #### [address] [address] Leukocyte esterase Test strip Ql (U) SMALL(1+) Abnormal NEGATIVE [facility] Comment on above: Performed By: #### U A #### [place] [id number] Nitrite Ql (U) Negative Normal NEGATIVE [facility] Comment on above: Performed By: #### U A #### [place] [address] pH (Bld) 6.0 Normal 5.0 - 8.0 [facility] Comment on above: Performed By: #### U A #### [place] [id number] Protein (U) [Mass/Vol] Negative Normal NEGATIVE [facility] Comment on above: Performed By: #### U A #### [place] [id number] Specific gravity (U) [Rel density] 1.027 Normal 1.005 - 1.035 [facility] Comment on above: Performed By: #### U A #### [place] [id number] Urobilinogen Qn (U) <2.0 Normal 0.0 - 1.9 [facility] Comment on above: Performed By: #### U A #### [place] [id number] US PELVISon 02-14-2020 US PELVIS Patient Name: EVELINA SAM STUDY: US PELVIS; 02/14/2020 11:50 am INDICATION: pelvic pain. COMPARISON: None. ACCESSION NUMBER(S): [id number] ORDERING CLINICIAN: JESS FRANKLIN TECHNIQUE: Multiple multiplanar [...] Electronically signed by: SHERRI KIRK MD Normal [facility] IO Vision Screeningon 2019 IO Vision Screening -[facility] Work Phone: Auto Diffon 07-05-2018 Basophils #/vol (Bld) 0.0 E3/mcL Normal 0.0-0.2 [facility] Comment on above: Order Comment: Order Added by Discern Expert. Performed By: #### 2 [id number] #### [address] [place] [address] Basophils/100 WBC (Bld) 0.3 % Normal 0.0-2.0 [facility] Comment on above: Order Comment: Order Added by Discern Expert. Performed By: #### 2 [id number] #### [address] [place] [address] Eos Absolute 0.1 E3/mcL Normal 0.0-0.7 [facility] Comment on above: Order Comment: Order Added by Discern Expert. Performed By: #### 2 [id number] #### [address] [place] [address] Eosinophils/100 WBC (Bld) 1.2 % Normal 0.0-11.0 [facility] Comment on above: Order Comment: Order Added by Discern Expert. Performed By: #### 2 143217 #### [address] [place] [address] Lymphocytes #/vol (Bld) 3.5 E3/mcL High 1.2-3.4 [facility] Comment on above: Order Comment: Order Added by Discern Expert. Performed By: #### 2 [id number] #### [address] [place] [address] Lymphocytes/100 WBC (Bld) 40.1 % Normal 20.0-55.0 [facility] Comment on above: Order Comment: Order Added by Discern Expert. Performed By: #### 2 [id number] #### [address] [place] [address] [place] Absolute 0.5 E3/mcL Normal 0.0-0.7 [facility] Comment on above: Order Comment: Order Added by Discern Expert. Performed By: #### 2 [id number] #### [address] [place] [address] Monocytes/100 WBC (Bld) 6.2 % Normal 0.0-10.0 [facility] Comment on above: Order Comment: Order Added by Discern Expert. Performed By: #### 2 242499 #### [address] [place] [id number] Neutro Absolute 4.5 E3/mcL Normal 1.4-6.5 [facility] Comment on above: Order Comment: Order Added by Discern Expert. Performed By: #### 2 [id number] #### [address] [place] [address] Neutro Auto 52.2 % Normal 37.0-75.0 [facility] Comment on above: Order Comment: Order Added by Discern Expert. Performed By: #### 2 [id number] #### [address] [place] [address] CBC w/ Auto Diffon 9 Erythrocyte distribution width Ratio (RBC) 13.2 % Normal 11.5-14.5 [facility] Comment on above: Performed By: #### 2 386484 #### [address] [place] [address] Hematocrit Volume Fraction (Bld) 39.3 % Normal 36.0-48.0 [facility] Comment on above: Performed By: #### 2 960153 #### [address] [place] [address] Hemoglobin mass conc (Bld) 12.9 g/dL Normal 12.0-16.0 [facility] Comment on above: Performed By: #### 2 [id number] #### [address] [place] [address] MCH Entitic mass (RBC) 29.1 pg Normal 27.0-31.0 [facility] Comment on above: Performed By: #### 2 952256 #### YUE AlexandraHemo [address] [place] [address] MCHC mass conc (RBC) 32.9 g/dL Low 33.0-37.0 [facility] Comment on above: Performed By: #### 2 697842 #### YUE [address] [place] [address] MCV Entitic volume (RBC) 88.5 fL Normal 78.0-100.0 [facility] Comment on above: Performed By: #### 2 773143 #### YUE [address]Hemo [address] [place] [id number] Platelet mean volume Entitic volume (Bld) 12.0 fL High 7.4-11.0 [facility] Comment on above: Performed By: #### 2 976321 #### YUE AlexandraHemo [facility] [place] [address] Platelets #/vol (Bld) 199 E3/mcL Normal 130-400 [facility] Comment on above: Performed By: #### 2 [id number] #### YUE [address]Hemo [address] [place] [id number] RBC #/vol (Bld) 4.44 E6/mcL Normal 3.90-5.40 [facility] Comment on above: Performed By: #### 2 097089 #### YUE [address]andraHemo [address] [place] [id number] WBC #/vol (Bld) 8.7 E3/mcL Normal 3.6-11.0 [facility] Comment on above: Performed By: #### 2 629689 #### YUE AlexandraHemo [facility] [place] [id number] Vital Signs Date Time Vital Sign Value Performing Clinician Facility 08-08-2024 14:040 Body height 179.1 cm Delroy BENDER Work Phone: [facility] 08-08-2024 14:10-040 Body mass index (BMI) [Ratio] 38.31 kg/m2 Delroy BENDER Work Phone: [facility] 08-08-2024 14:10-040 Body weight 122.83 kg Delroy Gross APRNMALORIE Work Phone: [facility] 08-08-2024 14:10-0400 Diastolic blood pressure 74 mm[Hg] Delroy Gross APRN-[employer]OCIATE Work Phone: [facility] 08-08-2024 14:10-0400 Systolic blood pressure 118 mm[Hg] Delroy Gross SECURITY PUBLIC SAFETY OFFICER-[employer] Work Phone: [facility] 01-14-2024 08:50-0400 Body height 180.3 cm Анна Sheets DO Work Phone: [facility] 01-14-2024 08:50-0400 Body mass index (BMI) [Ratio] 37.94 kg/m2 Анна Sheets DO Work Phone: [facility] 01-14-2024 08:50-0400 Body temperature 97.9 [degF] Анна Sheets DO Work Phone: [facility] 01-14-2024 08:50-0400 Body weight 123.38 kg Анна Sheets DO Work Phone: [facility] 01-14-2024 08:50-0400 Diastolic blood pressure 68 mm[Hg] Анна Sheets DO Work Phone: [facility] 01-14-2024 08:50-0400 Heart rate 81 /min Анна Sheets DO Work Phone: [facility] 01-14-2024 08:50-0400 Respiratory rate 16 /min Анна Sheets DO Work Phone: [facility] 01-14-2024 08:50-0400 SaO2% (BldA) [Mass fraction] 99 % Анна Sheets DO Work Phone: [facility] 01-14-2024 08:50-0400 Systolic blood pressure 110 mm[Hg] Анна Sheets DO Work Phone: [facility] 07-14-2023 08:01-0400 Body height 180.3 cm Анна Sheets DO Work Phone: [facility] 07-14-2023 08:01-0400 Body temperature 97.3 [degF] Анна Sheets DO Work Phone: [facility] 07-14-2023 08:01-0400 Body weight 125.19 kg Анна Sheets DO Work Phone: [facility] 07-14-2023 08:01-0400 Diastolic blood pressure 76 mm[Hg] Анна Sheets DO Work Phone: [facility] 07-14-2023 08:01-0400 Heart rate 77 /min Анна Sheets DO Work Phone: [facility] 07-14-2023 08:01-0400 Respiratory rate 16 /min Анна Sheets DO Work Phone: [facility] 07-14-2023 08:01-0400 SaO2% (BldA) [Mass fraction] 99 % Анна Sheets DO Work Phone: [facility] 07-14-2023 08:01-0400 Systolic blood pressure 114 mm[Hg] Анна Sheets DO Work Phone: [facility] 06-16-2023 08:17-0500 Body height 180.3 cm Анна Sheets DO Work Phone: [facility] 06-16-2023 08:17-0500 Body temperature 97.39 [degF] Анна Sheets DO Work Phone: [facility] 06-16-2023 08:17-0500 Body weight 122.02 kg Анна Sheets DO Work Phone: [facility] 06-16-2023 08:17-0500 Diastolic blood pressure 70 mm[Hg] Анна Sheets DO Work Phone: [facility] 06-16-2023 08:17-0500 Heart rate 67 /min Анна Sheets DO Work Phone: [facility] 06-16-2023 08:17-0500 Respiratory rate 16 /min Анна Sheets DO Work Phone: [facility] 06-16-2023 08:17-0500 SaO2% (BldA) [Mass fraction] 98 % Анна Sheets DO Work Phone: [facility] 06-16-2023 08:17-0500 Systolic blood pressure 108 mm[Hg] Анна Sheets DO Work Phone: [facility] 06-05-2023 11:07-0500 Body height 180.3 cm Delroy BENDER Work Phone: [facility] 06-05-2023 11:07-0500 Body mass index (BMI) [Ratio] 37.24 kg/m2 Delroy BENDER Work Phone: [facility] 06-05-2023 11:07-0500 Body weight 121.11 kg Delroy BENDER Work Phone: [facility] 06-05-2023 11:07-0500 Diastolic blood pressure 82 mm[Hg] Delroy Gross APRN-KRISTIN Work Phone: [facility] 06-05-2023 11:07-0500 Systolic blood pressure 114 mm[Hg] Delroy Gross APRN-KRISTIN Work Phone: [facility] 04-07-2022 16:10-0500 Body height 177.8 cm Faustino WEBBER-[facility] [place] [address] Work Phone: 04-07-2022 16:10-0500 Body mass index (BMI) [Ratio] 39.32 kg/m2 Faustino [facility]ER[facility] [address] Work Phone: 04-07-2022 16:10-0500 Body surface area Derived from formula 2.39 m2 Faustino [facility]ER-[facility] [address] Work Phone: 04-07-2022 16:10-0500 Body weight 124.31 kg Faustino M Rosalinda YI-XGPQS-Dxvhlzs ro ok 300 Work Phone: 04-07-2022 16:10-0500 Diastolic blood pressure 70 mm[Hg] Faustino Tellez VR-ZUBQO-Tvvjpaebd ok 300 Work Phone: 04-07-2022 16:10-0500 Systolic blood pressure 116 mm[Hg] Faustino Tellez FI-QJURZ-Rqfexbzkp ok 300 Work Phone: 04-07-2022 16:10-0500 0 1 Faustino Tellez SQ-QOVOH-Zswaiiw ro ok 300 Work Phone: Comment on above: [employer] 09-10-2021 13:06-0400 Body height 179.07 cm Faustino Tellez Work Phone: NG-REVYZ-Qebvyvcnp ok 300 Work Phone: 09-10-2021 13:06-0400 Body mass index (BMI) [Ratio] 37.06 kg/m2 Faustino Tellez Work Phone: BI-JKPKK-Ojnodedju ok 300 Work Phone: 09-10-2021 13:06-0400 Body surface area Derived from formula 2.35 m2 Faustino Tellez Work Phone: JD-JBRBN-Paxhluldq ok 300 Work Phone: 09-10-2021 13:06-0400 Body weight 118.84 kg Faustino Tellez Work Phone: EB-KACIJ-Cfnrduwcr ok 300 Work Phone: 09-10-2021 13:06-0400 Diastolic blood pressure 62 mm[Hg] Faustino Tellez Work Phone: GD-UCVFV-Zjszjdjqs ok 300 Work Phone: 09-10-2021 13:06-0400 Systolic blood pressure 130 mm[Hg] Faustino Tellez Work Phone: GJ-EIUQS-Uviepobuj ok 300 Work Phone: 09-10-2021 13:06-0400 0 1 Faustino Tellez Work Phone: AX-ORYOL-Ouqbgpvke ok 300 Work Phone: Comment on above: [...] 07-09-2021 12:39-0400 Body weight 118.03 kg Faustino Tellez Work Phone: [facility] [...] height 179.07 cm Faustino Tellez Work Phone: KJ-QHWPN-Abkxumawr ok 300 Work Phone: 05-28-2021 15:20-0500 Body mass index (BMI) [Ratio] 35.93 kg/m2 Faustino Tellez Work Phone: RY-EYAZE-Nxntzcujg ok 300 Work Phone: 05-28-2021 15:20-0500 Body surface area Derived from formula 2.32 m2 Faustino Tellez Work Phone: IZ-UJCBX-Urwmyhqvj ok 300 Work Phone: 05-28-2021 15:20-0500 Body weight 115.21 kg Faustino Tellez Work Phone: AO-KNGBW-Ripdkajbm ok 300 Work Phone: 05-28-2021 15:20-0500 Diastolic blood pressure 70 mm[Hg] Faustino Tellez Work Phone: YA-QABUN-Pjtxwuagi ok 300 Work Phone: 05-28-2021 15:20-0500 Systolic blood pressure 120 mm[Hg] Faustino Tellez Work Phone: JO-ZNYFI-Lmslqymfj ok 300 Work Phone: 05-28-2021 15:20-0500 0 1 Faustino Tellez Work Phone: VU-SDBZN-Ooinxupmf ok 300 Work Phone: Comment on above: [...] height 179.07 cm Faustino Tellez Work Phone: OO-QCXYW-Xxmlardpy ok 300 Work Phone: 03-26-2021 11:43-0500 Body mass index (BMI) [Ratio] 36.41 kg/m2 Faustino Tellez Work Phone: RW-TOYCY-Iydsxihwp ok 300 Work Phone: 03-26-2021 11:43-0500 Body surface area Derived from formula 2.34 m2 Faustino Tellez Work Phone: GT-IOCHP-Piajbkrmq ok 300 Work Phone: 03-26-2021 11:43-0500 Body weight 116.75 kg Faustino Tellez Work Phone: TS-MCKYP-Svlbssput ok 300 Work Phone: 03-26-2021 11:43-0500 Diastolic blood pressure 68 mm[Hg] Faustino Tellez Work Phone: AG-RPRQD-Rhtedvymk ok 300 Work Phone: 03-26-2021 11:43-0500 Systolic blood pressure 120 mm[Hg] Faustino Tellez Work Phone: PC-SMXLC-Igrnkqihg ok 300 Work Phone: 03-26-2021 11:43-0500 0 1 Faustino Tellez Work Phone: WA-XCMTA-Snojzikih ok 300 Work Phone: Comment on above: GRAV PARA [employer] 01-29-2021 14:56-0400 Body height 179.07 cm Faustino Tellez Work Phone: HN-PVNSB-Sriegmtwf ok 300 Work Phone: 01-29-2021 14:56-0400 Body mass index (BMI) [Ratio] 35.01 kg/m2 Faustino Tellez Work Phone: SP-BZCOW-Quhfvftdi ok 300 Work Phone: 01-29-2021 14:56-0400 Body surface area Derived from formula 2.3 m2 Faustino Tellez Work Phone: SP-CJIES-Tcsyikqim ok 300 Work Phone: 01-29-2021 14:56-0400 Body weight 112.27 kg Faustino Tellez Work Phone: FE-JXZJG-Enoqjdteh ok 300 Work Phone: 01-29-2021 14:56-0400 Diastolic blood pressure 62 mm[Hg] Faustino Tellez Work Phone: MP-JSWMT-Mknvqdywr ok 300 Work Phone: 01-29-2021 14:56-0400 Systolic blood pressure 102 mm[Hg] Faustino Tellez Work Phone: TJ-JUHPY-Jtcnqwlvg ok 300 Work Phone: 01-29-2021 14:56-0400 0 1 Faustino Tellez Work Phone: IO-KAOII-Awhmzcfhw ok 300 Work Phone: Comment on above: GRAV PARA [facility] 12-18-2020 09:10-0400 Body height 179.07 cm Faustino Tellez Work Phone: [employer] [address] [place] Work Phone: 12-18-2020 09:10-0400 Body mass index (BMI) [Ratio] 34.55 kg/m2 Faustino [facility]ellez [facility] [address] [place] Work Phone: 12-18-2020 09:10-0400 Body surface area Derived from formula 2.28 m2 aFustino Tellez Work Phone: [place] [address] [place] Work Phone: 12-18-2020 09:10-0400 Body temperature 97.5 [degF] Faustino Tellez Work Phone: [place] [address] [place] Work Phone: 12-18-2020 09:10-0400 Body weight 110.8 kg Faustino Tellez Work Phone: [address] Work Phone: 12-18-2020 09:10-0400 Diastolic blood pressure 82 mm[Hg] Faustino Tellez Work Phone: [address] Work Phone: 12-18-2020 09:10-0400 Systolic blood pressure 120 mm[Hg] Faustino Tellez Work Phone: [address] Work Phone: 07-27-2019 12:11-0400 BMI (Body Mass Index) 35.65 kg/m2 Caty Altamirano [facility] Work Phone: 07-27-2019 12:11-0400 Body Temperature 97.11 [degF] Caty Altamirano [facility] Work Phone: 07-27-2019 12:11-0400 Body weight 114.3 kg Caty Altamirano [facility] Work Phone: 07-27-2019 12:11-0400 BP Diastolic 68 mm[Hg] [facility] Work Phone: Comment on above: Location: E; 07-27-2019 12:11-0400 BP Systolic 122 mm[Hg] [facility] Work Phone: Comment on [...] Facility Start: 01-16-2025 ambulatory Health Risk Assessment Facility:[facility] Start: 12-28-2024 End: 12-28-2024 Refill Анна C Sheets DO [facility] Comment on above: Refill Request Start: 09-21-2024 End: 09-26-2024 Refill Анна C Sheets DO Work Phone: [facility] Comment on above: Refill Request Start: 09-06-2024 End: 09-06-2024 Patient encounter procedure Juan Mcdermott OD Work Phone: Optometry Comment on above: Myopia of both eyes (Primary Dx) Start: 09-06-2024 End: 09-06-2024 ambulatory АННА C SHEETS Facility:[facility] Start: 08-08-2024 End: 08-08-2024 Patient encounter procedure Delroy Gross APRN-SUMMER [employer] ASSOCIATE Work Phone: [facility] Work Phone: Start: 08-08-2024 End: 08-08-2024 Periodic preventive med est patient 18-39 yrs Delroy Gross APRN-[employer]MER [employer] ASSOCIATE Work Phone: [facility] Comment on above: Well woman exam with routine gynecological exam (Primary Dx); Vulvodynia Start: 08-08-2024 End: 08-08-2024 ambulatory [facility] Ambulatory Start: 08-08-2024 End: 08-08-2024 Encounter for gynecological examination (general) (routine) without abnormal findings [facility] Start: 03-23-2024 End: 03-23-2024 Refill Анна C Sheets DO [facility] Phone[facility] Comment on above: Refill Request Start: 01-14-2024 End: 01-14-2024 Patient encounter procedure Анна C Sheets DO Work Phone: [facility] Comment on above: Anxiety with depress ion (Primary Dx); Bacterial sinusitis; Encounter for immunization; Obesity, Class II, BMI 35-39.9 Start: 01-14-2024 End: 01-14-2024 ambulatory АННА C SHEETS Facility:[facility] Start: 12-14-2023 End: 12-14-2023 Refill Анна C Sheets DO Work Phone: [facility] Comment on above: Refill Request Start: 09-22-2023 Telephone encounter Анна C Sheets DO Work Phone: [facility] Comment on above: Lab Orders Start: 09-02-2023 Refill Анна C She ets DO Work Phone: [facility] Comment on above: Refill Request Start: 07-14-2023 End: 07-14-2023 Patient encounter procedure Анна C Sheets DO Work Phone: [facility] Comment on above: Anxiety with depress ion (Primary Dx); Obesity, Class II, BMI 35-39.9 Start: 07-14-2023 End: 07-14-2023 ambulatory АННА C SHEETS Facility:[facility] Start: 06-20-2023 End: 06-20-2023 ambulatory АННА C SHEETS Facility:[facility] Start: 06-18-2023 Telephone encounter Анна C Sheets DO Work Phone: [facility] Comment on above: Lab Orders Start: 06-16-2023 End: 06-16-2023 Patient encounter procedure Анна López DO Work Phone: [facility] Comment on above: Well adult exam ([facility] raven Dx); Other fatigue; Anxiety with depression; Pelvic floor dysfunction; Screening for blood disease; Screening for endocrine, metabolic and immunity disorder; Screening cholesterol level; Obesity, Class II, BMI 35-39.9; Encounter for immunization Start: 06-16-2023 End: 06-16-2023 Patient encounter status Анна López DO Work Phone: [facility] Work Phone: Start: 06-16-2023 End: 06-16-2023 ambulatory АННА LÓPEZ Facility:[facility] Start: 06-16-2023 Encounter for genera l adult medical examination without abnormal findings АННА LÓPEZ [facility] Start: 06-05-2023 End: 06-05-2023 Patient encounter procedure Delroy Gross SECURITY PUBLIC SAFETY OFFICER-[employer]MER [employer] ASSOCIATE Work Phone: [facility] Work Phone: Start: 06-05-2023 End: 06-05-2023 Periodic preventive med est patient 18-39 yrs Delroy Gross SECURITY PUBLIC SAFETY OFFICER-[employer]MER [employer] ASSOCIATE Work Phone: [facility] Comment on above: Well woman exam with routine gynecological exam (Primary Dx); Pelvic pain; Vulvodynia; Lichen sclerosus Start: 12-11-2022 AUDIT Faustino Tellez MG-OBGY N[facility] [address] Work Phone: Start: 08-25-2022 AUDIT Faustino Tellez [facility] Work Phone: Start: 04-08-2022 AUDIT Faustino Tellez MG[facility] Work Phone: Start: 04-07-2022 ambulatory Delroy Kim cility:[id number] Start: 09-10-2021 Office outpatient vi sit 15 minutes Faustino Tellez Work Phone: WL-VVZLU-Ufbtjwfjpmt 300 Work Phone: Start: 09-10-2021 ambulatory Delroy Kim cility:[id number] Start: 07-09-2021 Chart Update Faustino Richard r Work Phone: [facility] DO Work Phone: Start: 07-09-2021 Office outpatient vi sit 15 minutes Faustino Tellez Work Phone: [facility] Work Phone: Start: 07-09-[address] JOSEF Musa acility:[id number] Start: 05-28-2021 Office outpatient vi sit 15 minutes Faustino Tellez Work Phone: VM-YODPK-Bfvchtyeaji 300 Work Phone: Start: 05-28-2021 ambulatory Delroy Gross Fa cility:[id number] Start: 04-16-2021 AUDIT Faustino Flaquita Garayeliza r Work Phone: [facility] Work Phone: Start: 04-14-2021 Chart Update Faustino Richard r Work Phone: [facility] Work Phone: Start: 04-09-2021 Chart Update Faustino Richard r Work Phone: [facility] Work Phone: Start: 04-08-2021 Office consultation new/estab patient 60 min Faustino Tellez Work Phone: [facility] Work Phone: Start: 04-08-[address] JOSEF Musa acility:[id number] Start: 04-01-2021 Chart Update Faustino rubio Work Phone: QW-TVNGO-Ttssosncqik 300 Work Phone: Start: 02-02-2021 Chart Update Faustino rubio Work Phone: BM-AUXUX-Naxsazbindp 300 Work Phone: Start: 01-29-2021 Office outpatient vi sit 25 minutes Faustino Tellez Work Phone: BR-AEYGX-Xagpxajpwho 300 Work Phone: Start: 12-18-2020 Office outpatient vi sit 10 minutes Faustino Tellez Work Phone: [facility] [address] Work Phone: Start: 07-27-2019 Patient encounter procedure Caty Altamirano [facility] Work Phone: Start: 07-05-2018 End: 07-06-2018 Patient encounter procedure Caty Altamirano Facility:[facility] Start: 04-30-2018 End: 05-01-2018 Patient encounter procedure Michael Sanchez Facility:[facility] Procedures Date Procedure Procedure Detail Performing Clinician [...] f 2) Zoster Vaccines (1 of 2) [facility] Start: 09-04-2030 DTaP/Tdap/Td Vaccine s (8 - Td or Tdap) DTaP/Tdap/Td Vaccines (8 - Td or Tdap) [facility] Start: 09-04-2030 Urine microalbumin profile DTaP,Tdap,Td Vaccine (8 - Td or Tdap) [facility] Start: 09-07-2025 End: 09-07-2025 Patient encounter procedure 09/07/2025 8:00 AM EDT Office Visit [facility] [address] [place] [address] Juan Mcdermott, OD [address] [place], [place] [id number] Eye Exam - Contact Lens Exam ( [facility] - exam / [facility] - materials) Optometry Comment on above: Eye Exam - Contact L ens Exam ( [facility] - exam / [facility] - materials) Start: 08-09-2025 Yearly Adult Physical Yearly Adult P [facility] Start: 08-08-2025 End: 08-08-2025 Patient encounter procedure 08/08/2025 2:20 PM EDT Office Visit [facility] [address] [facility] [address] [place] [id number] Delroy Gross, SECURITY PUBLIC SAFETY OFFICER-SUMMER [employer] ASSOCIATE [address] [facility] [address] [place], [place] [id number] [facility] Start: 01-13-2025 Covid-19 Vaccine ( season) Covid-19 Vaccine ( season) [facility] Comment on above: Postponed from 12/26 (Declined at this time) Start: 01-13-2025 Covid-19 Vaccine ( season) Covid-19 Vaccine ( season) [facility] Comment on above: Postponed from 12/26 (Declined at this time) Start: 12-28-2024 End: 03-29-2025 Hepatic function 2000 panel - Serum or Plasma HEPATIC FUNCTION PNL Lab Routine Anxiety with depression Expected: 12/28/2024, Expires: 03/29/2025 [facility] Work Phone: Comment on above: Expected: 12/28/2024 , Expires: 03/29/2025 Start: 12-26-2024 Influenza vaccination Influenza Vacc ine (#1) [facility] Start: 09-23-2024 End: 12-23-2024 CBC panel - Blood by Automated count COMPLETE BLOOD COUNT Lab Routine Anxiety with depression Expected: 09/23/2024, Expires: 12/23/2024 [facility] Work Phone: Comment on above: Expected: 09/23/2024 , Expires: 12/23/2024 Start: 09-23-2024 End: 12-23-2024 Comprehensive metabolic 2000 panel - Serum or Plasma COMPREHENSIVE METABOLIC PANEL Lab Routine Anxiety with depression Expected: 09/23/2024, Expires: 12/23/2024 [facility] Comment on above: Expected: 09/23/2024 , Expires: 12/23/2024 Start: 08-08-2024 End: 08-08-2025 TSH with reflex to Free T4 if abnormal TSH with reflex to Free T4 if abnormal Lab Routine Well woman exam with routine gynecological exam Expected: 08/08/2024 (Approximate), Expires: 08/08/2025 [facility] Service Area Work Phone: Comment on above: Expected: 08/08/2024 (Approximate), Expires: 08/08/2025 Start: 07-13-2024 GC (Gonorrhea) Screening (18-24) GC (Gonorrhea) Screening (18-24) [facility] Comment on above: Postponed from 08/31 (Declined at this time) Start: 07-13-2024 Hepatitis C screening Hepatitis C [place] [facility] Comment on above: Postponed from 08/31 (Declined at this time) Start: 07-13-2024 HIV screening HIV Screening [facility] Comment on above: Postponed from 08/31 (Declined at this time) Start: 07-13-2024 Screening for Chlamy shaina trachomatis Chlamydia Screening (18-24) [facility] Comment on above: Postponed from 08/31 (Declined at this time) Start: 06-16-2024 Covid-19 Vaccine () Covid-19 Vaccine () [facility] Comment on above: Postponed from 12/26 (Declined at this time) Start: 01-14-2024 End: 01-14-2024 Patient encounter procedure 01/14/2024 9:00 AM EDT [facility] [address] [place] [address] Анна López DO [address] [place] [address] 6 month follow up anxiety depression [facility] Comment on above: 6 month follow up an xiety depression Start: 12-27-2023 COVID-19 Vaccine () COVID-19 Vaccine () [facility] Start: 12-27-2023 Influenza vaccination Influenza Vacc ine (#1) [facility] Start: 09-23-2023 End: 12-23-2023 Lipid 1996 panel - Serum or Plasma LIPID PANEL BASIC Lab Routine Hyperlipidemia, mixed Expected: 09/23/2023, Expires: 12/23/2023 [facility] Work Phone: Comment on above: Expected: 09/23/2023 , Expires: 12/23/2023 Start: 06-18-2023 End: 09-17-2023 BLOOD TB SCREEN BLOOD TB SCREEN Lab Routine Screening-pulmonary TB Expected: 06/18/2023, Expires: 09/17/2023 [facility] Work Phone: Comment on above: Expected: 06/18/2023 , Expires: 09/17/2023 Start: 06-18-2023 End: 09-17-2023 TOX SCREEN ROUT UR TOX SCREEN ROUT UR Lab Routine Encounter for drug screening Expected: 06/18/2023, Expires: 09/17/2023 [facility] Work Phone: Comment on above: Expected: 06/18/2023 , Expires: 09/17/2023 Start: 04-07-2023 Patient encounter procedure ANNUAL, Provider: Delroy Gross, Status: Pen, Time: 3:40 PM DJ-REXPJ-Pvzqjtgbllw 300 Work Phone: Start: 12-26-2022 COVID-19 Vaccine ( season) COVID-19 Vaccine ( season) [facility] Start: 12-26-2022 Influenza vaccination Influenza Vacc ine (#1) [facility] Start: 03-14-2022 FUV, Provider: Delroy Gross, Status: Pen, Time: 1:00 PM FUV, Provider: Delroy Gross, Status: Pen, Time: 1:00 PM SC-HNMBT-Fwursauibdh 300 Work Phone: Start: 01-09-2022 FUV, Provider: Josef Plata, Status: Pen, Time: 12:30 PM FUV, Provider: Josef Plata, Status: Pen, Time: 12:30 PM [facility] [facility] Work Phone: Start: 09-10-2021 FUV, Provider: Delroy Gross, Status: Pen, Time: 1:00 PM FUV, Provider: Delroy Gross, Status: Pen, Time: 1:00 PM QG-RXXSI-Rnrmxhgnpgz 300 Work Phone: Start: 07-09-2021 FUV, Provider: [...] Delroy Gross, Status: Pen, Time: 3:20 PM RN-JHESC-Lunjvyaibbq 300 Work Phone: Start: 04-08-2021 NPV, Provider: Josef Plata, Status: Pen, Time: 2:45 PM NPV, Provider: Josef Plata, Status: Pen, Time: 2:45 PM IW-QUCZS-Geqogdgywbe 300 Work Phone: Start: 03-26-2021 FUV, Provider: Delroy Gross, Status: Pen, Time: 11:40 AM FUV, Provider: Delroy Gross, Status: Pen, Time: 11:40 AM WW-CTXAA-Untzeosprer 300 Work Phone: Start: 01-21-2021 [id number], Provider: Thao Tse, Status: Pen, Time: 1:15 PM [id number], Provider: Thao Tse, Status: Pen, Time: 1:15 PM [facility] Work Phone: Start: 08-31-2020 Screening for malign ant neoplasm of cervix [facility] Start: 08-31-2017 GC (Gonorrhea) Screening (18-24) GC (Gonorrhea) Screening (18-24) [facility] Start: 08-31-2017 Hepatitis C screening Hepatitis C [facility] Start: 08-31-2017 HIV screening HIV Screening [facility] Start: 08-31-2017 Screening for Chlamy shaina trachomatis Chlamydia Screening (18-24) [facility] Start: 12-23-2016 Meningococcal B Vaccine: Consider Based On Risk (2 of 2 - Risk Bexsero 2-dose series) Meningococcal B Vaccine: Consider Based On Risk (2 of 2 - Risk Bexsero 2-dose series) [facility] Start: 08-31-2013 Peds To Adult Transition Annual Assessment Peds To Adult Transition Annual Assessment [facility] Start: 2011 Peds To Adult Transition Initial Discussion Peds To Adult Transition Initial Discussion [facility] Start: 1999 HIV screening HIV Screening [facility] Start: 1999 Lipid panel Lipid Panel [facility] Start: 1999 Yearly Adult Physical Yearly Adult P hysical [facility] Im adm prq id subq/i m njxs 1 vaccine IMADM PRQ ID SUBQ/IM NJXS 1 VACC Immunization/Injection Routine Encounter for immunization Ordered: 06/16/2023 [facility] Work Phone: Comment on above: Ordered: 06/16/2023 Im adm prq id subq/i m njxs 1 vaccine IMADM PRQ ID SUBQ/IM NJXS 1 VACC Immunization/Injection Routine Encounter for immunization Ordered: 01/14/2024 [facility] Work Phone: Comment on above: Ordered: 01/14/2024 [facility] Immunizations Immunization Date Immunization Notes Care Provider Fa cili 01-14-2024 influenza, seasonal, injectable Анна Sheets DO Work Phone: [facility] 01-14-2024 meningococcal B vacc ine, recombinant, OMV, adjuvanted Анна Sheets DO Work Phone: [facility] 01-14-2024 influenza virus vacc ine, unspecified formulation Анна Sheets DO Work Phone: [facility] 06-16-2023 influenza, injectabl e, quadrivalent, contains preservative Анна Sheets DO Work Phone: [facility] 06-16-2023 influenza virus vacc ine, unspecified formulation Анна Sheets DO Work Phone: [facility] 09-04-2020 tetanus toxoid, redu mirella diphtheria toxoid, and acellular pertussis vaccine, adsorbed Fuastino Tellez Work Phone: [facility] 07-12-2020 [employer] COVI D-19 Vacc 30 MCG/0.3ML Intramuscular Suspension Faustino Tellez Work Phone: [facility] 01-06-2020 influenza nasal, unspecified formulation Анна Sheets DO Work Phone: [facility] 01-06-2020 influenza, injectabl e, quadrivalent, preservative free Faustino Tellez Work Phone: [facility] 01-06-2020 influenza virus vacc ine, unspecified formulation Delroy BENDER Work Phone: [facility] Work Phone: 02-24-2019 influenza nasal, unspecified formulation Анна Sheets DO Work Phone: [facility] 02-24-2019 influenza virus vacc ine, unspecified formulation Faustino M Rosalinda Work Phone: [address] Work Phone: Comment on above: Series: 02-24-2019 Influenza, injectabl e, [facility]in [place] Can[facility], quadrivalent with preservative Анна Sheets DO Work Phone: [facility] 02-24-2019 influenza, seasonal, injectable [facility] 11-25-2016 meningococcal B vacc ine, recombinant, OMV, adjuvanted [facility] Comment on above: Series: 10-21-2016 meningococcal polysaccharide (groups A, C, Y and W-135) diphtheria toxoid conjugate vaccine (MCV4P) [facility] Comment on above: Series: 10-04-2013 human papilloma viru s vaccine, quadrivalent [facility] Comment on above: Series: 06-01-2013 human papilloma viru s vaccine, quadrivalent [facility] Comment on above: Series: 03-23-2013 human papilloma viru s vaccine, quadrivalent [facility] Comment on above: Series: 03-23-2013 influenza nasal, unspecified formulation Анна Sheets DO Work Phone: [facility] 03-23-2013 influenza virus vacc ine, unspecified formulation Faustino Sams Rosalinda Work Phone: [address] Work Phone: Comment on above: Series: 03-23-2013 influenza, seasonal, injectable [facility] 03-23-2013 influenza, seasonal, injectable, preservative free Анна Sheets DO Work Phone: [facility] 06-23-2011 hepatitis A vaccine, pediatric/adolescent dosage, 2 dose schedule Анна Sheets DO Work Phone: [facility] 06-23-2011 hepatitis A vaccine, unspecified formulation [facility] Comment on above: Series: 11-06-2010 hepatitis A vaccine, pediatric/adolescent dosage, 2 dose schedule Анна López DO Work Phone: [facility] 11-06-2010 hepatitis A vaccine, unspecified formulation [facility] Comment on above: Series: 11-06-2010 meningococcal polysaccharide (groups A, C, Y and W-135) diphtheria toxoid conjugate vaccine (MCV4P) [facility] Comment on above: Series: 11-06-2010 tetanus toxoid, redu mirella diphtheria toxoid, and acellular pertussis vaccine, adsorbed [facility] Comment on above: Series: 11-06-2010 varicella virus vaccine [facility] Comment on above: Series: 09-27-2003 diphtheria, tetanus toxoids and acellular pertussis vaccine [facility] Comment on above: Series: 09-27-2003 measles, mumps and rubella virus vaccine [facility] Comment on above: Series: 09-27-2003 poliovirus vaccine, inactivated [facility] Comment on above: Series: 12-01-2000 diphtheria, tetanus toxoids and acellular pertussis vaccine [facility] Comment on above: Series: 12-01-2000 pneumococcal conjuga te vaccine, 13 valent [facility] Comment on above: Series: 12-01-2000 pneumococcal conjuga te vaccine, 7 valent Анна López DO Work Phone: [facility] 12-01-2000 varicella virus vaccine [facility] Comment on above: Series: 2000 haemophilus influenz ae type b conjugate and Hepatitis B vaccine Faustino Tellez Work Phone: [facility] 2000 haemophilus influenz ae type b vaccine, PRP-OMP conjugate [facility] Comment on above: Series: 2000 hepatitis B vaccine, adult dosage [facility] Comment on above: Series: 2000 measles, mumps and rubella virus vaccine [facility] [facility] Comment on above: Series: 08-29-2000 pneumococcal conjuga te vaccine, 13 valent Faustino Tellez Work Phone: [facility] Comment on above: Series: 08-29-2000 pneumococcal conjuga te vaccine, 7 valent Анна Sheets DO Work Phone: [facility] 08-25-2000 pneumococcal conjuga te vaccine, 13 valent Caty Altamirano [facility] Work Phone: 06-05-2000 pneumococcal conjuga te vaccine, 13 valent Caty Adarsh [facility] Comment on above: Series: 06-05-2000 pneumococcal conjuga te vaccine, 7 valent Анна Sheets DO Work Phone: [facility] 04-08-2000 diphtheria, tetanus toxoids and acellular pertussis vaccine [facility] Comment on above: Series: 04-08-2000 diphtheria, tetanus toxoids and acellular pertussis vaccine, unspecified formulation Анна Sheets DO Work Phone: [facility] 04-08-2000 poliovirus vaccine, inactivated [facility] Comment on above: Series: 03-13-2000 pneumococcal conjuga te vaccine, 13 valent [facility] Comment on above: Series: 03-13-2000 pneumococcal conjuga te vaccine, 7 valent Анна Sheets DO Work Phone: [facility] 01-07-2000 diphtheria, tetanus toxoids and acellular pertussis vaccine [facility] Comment on above: Series: 01-07-2000 haemophilus influenz ae type b vaccine, PRP-OMP conjugate [facility] Comment on above: Series: 01-07-2000 hepatitis B vaccine, adult dosage [facility] Comment on above: Series: 01-07-2000 poliovirus vaccine, inactivated [facility] Comment on above: Series: 1999 diphtheria, tetanus toxoids and acellular pertussis vaccine [facility] Comment on above: Series: 1999 haemophilus influenz ae type b conjugate and Hepatitis B vaccine Faustino Tellez Work Phone: [facility] 1999 haemophilus influenz ae type b vaccine, PRP-OMP conjugate [facility] Comment on above: Series: 1999 hepatitis B vaccine, adult dosage [facility] Comment on above: Series: 1999 poliovirus vaccine, inactivated [facility] Comment on above: Series: Payers Date Payer Category Payer Self-pay 2022 Managed Care (Private) [employer] [facility] [id number] 2022 Private Health Insurance [id number] 2022 Private Health Insurance [id number] 2022 Unknown [id number] 2017 Unknown 1999 Unknown [id number] [id number] 1999 Unknown [id number] [id number] 1999 Unknown [id number]. [id number] 1999 Unknown [id number] [id number] 1999 Unknown [id number] [id number] 1999 Unknown [id number] [id number] 1999 Unknown [id number] [id number] 1969 Unknown [id number] [id number] 1969 Unknown [id number] [id number] Unknown [id number] Unknown [id number] Unknown [id number] [id number] Social History Date Type Detail Facility Start: 06-05-2023 End: 06-16-2023 Never a smoker Never a smoker [facility] Work Phone: Start: 06-05-2023 End: 06-16-2023 Tobacco smoking status NHIS Never smoked tobacco [facility] Work Phone: Start: 06-05-2023 End: 06-16-2023 Tobacco use and exposure Smokeless tobacco non-user [facility] Work Phone: Start: 06-05-2023 End: 09-06-2024 Alcohol intake Current drinker of alcohol (finding) [facility] Work Phone: Start: 06-05-2023 End: 06-16-2023 Tobacco use panel [facility] Work Phone: Start: 06-05-2023 Alcohol Comment rare [facility] Work Phone: Start: 2000 Sex Assigned At Not on file [facility] Work Phone: Start: 05-26-2023 End: 08-08-2024 Exposure to SARS-CoV-2 (event) Not sure [facility] Start: 03-28-2012 Adult Depression Screening Assessment 3 [facility] Work Phone: Start: 06-16-2023 Alcohol Comment socially [facility] NEGATED: Highlighted row - - [facility] Work Phone: Functional Status Date Assessment Result Facility NEGATED: Highlighted row Functional performance Functional status health issues are not documented Disease [facility] Work Phone: Mental Status Date Assessment Result Facility NEGATED: Highlighted row Cognitive function [Interpretation] Cognitive status health issues are not documented Disease [facility] Work Phone: Clinical Notes 01-29-2021 to 12-28-2024 Telephone Encounter - Raven Garcias MA - 12/28/2024 3:33 PM EDTTelephone Encounter - Raven Garcias MA - 12/28/2024 3:33 PM EDTTelephone Encounter - Анна López DO - 12/28/2024 1:01 PM EDT Note Date & Type Note Facility 12-28-2024 Telephone encounter Note Pt. Notified. Raven Garcias MA [facility] 12-28-2024 Miscellaneous Notes Pt. Notified. Raven Garcias [...] Angle Brar MA documented in this encounter [facility] 12-28-2024 Telephone encounter Note Please notify pt they are due for blood work - order attached Анна Sheets, DO [facility] 12-28-2024 Telephone encounter Note Patient's mother phones requesting refills as follows: Last seen 01/14/24 . Last refill 09/23/24 . No future appointments. Requested Prescriptions Pending Prescriptions Disp Refills amitriptyline (ELAVIL) 25 mg tablet 90 tablet 0 Sig: Take 1 tablet by mouth daily at bedtime. Please review and advise. Angle Brar MA [facility] 09-26-2024 Telephone encounter Note Patient notified. Raven Garcias MA [facility] 09-26-2024 Miscellaneous Notes Patient notified. Raven Garcias MA Please notify pt they are due for blood work - order attached Аннаdebra López DO documented in this encounter [facility] 09-23-2024 Telephone encounter Note Please notify pt they are due for blood work - order attached Анна Sheets, DO [facility] 09-06-2024 Note HNO ID: [id number] Author: JUAN MCDERMOTT OD Service: ? Author Type: HOT MILL ROLLER Type: Progress Notes Filed: 09/06/2024 08:24 Note [...] Mcdermott OD September 06, 2024 8:24 AM [facility] 09-06-2024 History of Present illness Narrative ASSESSMENT/PLAN: [...] 2024 8:24 AM documented in this encounter [facility] 08-08-2024 History of Present illness Narrative Subjective [...] she had the HPV vaccine? 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 Last Refill 01/14/24. Requested Prescriptions Pending Prescriptions Disp Refills amitriptyline (ELAVIL) 25 mg tablet 90 tablet 1 Sig: Take 1 tablet by mouth daily at bedtime. Please review and advise. Angelina Martinez MA [facility] 03-23-2024 Miscellaneous Notes Patient's father requesting refills as follows: Last Office Visit 01/14/24 NOV none. Last Refill 01/14/24. Requested Prescriptions Pending Prescriptions Disp Refills amitriptyline (ELAVIL) 25 mg tablet 90 tablet 1 Sig: Take 1 tablet by mouth daily at bedtime. Please review and advise. Angelina Martinez MA documented in this encounter [facility] 01-14-2024 Note HNO ID: [id number] Author: АННА LÓPEZ, DO Service: ? Author [...] Encounter for immunizat (more content not included)... [facility] 01-14-2024 History of Present illness Narrative Subjective [...] Анна López DO documented in this encounter [facility] 09-23-2023 Telephone encounter Note Left message informing patient, phone number to reach the office was left for any questions or concerns. Angelina Martinez MA [facility] 09-23-2023 Miscellaneous Notes Left message informing patient, phone number to reach the office was left for any questions or concerns. Angelina Martinez MA Order attached Анна López DO ----- Message from Angelina Martinez MA sent at 06/23/2023 5:27 PM EST ----- FLPs in 3 months documented in this encounter [facility] 09-23-2023 Telephone encounter Note Order attached Анна López DO [facility] 09-22-2023 Telephone encounter Note ----- Message from Angelina Martinez MA sent at 06/23/2023 5:27 PM EST ----- FLPs in 3 months [facility] 09-02-2023 Telephone encounter Note pharmacy electronically requesting refills as follows: Last seen 07/14/23 . Last refill 06/16/23 . Requested Prescriptions Pending Prescriptions Disp Refills amitriptyline (ELAVIL) 25 mg tablet 90 tablet 0 Sig: Take 1 tablet by mouth daily at bedtime. Please review and advise. Angle Brar MA [facility] 09-02-2023 Miscellaneous Notes pharmacy electronically requesting refills as follows: Last seen 07/14/23 . Last refill 06/16/23 . Requested Prescriptions Pending Prescriptions Disp Refills amitriptyline (ELAVIL) 25 mg tablet 90 tablet 0 Sig: Take 1 tablet by mouth daily at bedtime. Please review and advise. Angle Brar MA documented in this encounter [facility] 07-14-2023 Note HNO ID: [id number] Author: АННА LÓPEZ, DO Service: ? Author [...] E66.9 Lifestyle modification recommended Анна López DO [facility] 07-14-2023 History of Present illness Narrative Subjective [...] Анна López DO documented in this encounter [facility] 06-18-2023 Miscellaneous Notes Patient's dad Angel on [...] Angle Brar MA documented in this encounter [facility] 06-16-2023 Nurse Note Immunizations were given as ordered. Vaccination information sheet(s) given. Angle Brar MA documented in this encounter [facility] 06-16-2023 Note HNO ID: [id number] Author: АННА LÓPEZ DO Service: ? Author Type: Physician Type: Progress Notes Filed: 06/23/2023 17:23 Note Text: SUBJECTIVE: 22 year old female is here with her mother to establish. I have fully reviewed the past medical, surgical, social and family history and updated the Histories section of [facility]. 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 ASSES (more content not included)... [facility] 06-16-2023 History of Present illness Narrative SUBJECTIVE: 22 year old female is here with her mother to establish. I have fully reviewed the past medical, surgical, social and family history and updated the Histories section of [employer]. She has been struggling with anxiety and [...] have trouble staying asleep She saw an CANDY FORMING MACHINE OPERATOR, uses clobetasol and takes amitriptyline for vaginal irritation and nerve pain She will go to a pelvic floor finisher. 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 Other fatigue - [...] Анна López DO documented in this encounter [facility] 06-05-2023 History of Present illness Narrative Images [...] 06/05/23 11:13 AM documented in this encounter [facility] Work Phone: 09-10-2021 History of Present illness Narrative h/o LS and vulvodyniacurrent treatment: compounded estradiol wilth testosterone 3 times/weekclobetasol 2-3 times/[id number] amitriptyline at [facility] discontinued 04/2021h/o PCOS working with endocrinologycurrently has prescription for progesterone if she is amenorrheic for 3 monthsLMP 08/22, 07/10leave for camp at the end of the month for the next 10 weeksno pain with application of creams, ointmentno AEoverall happy with results OV-LJILF-Ipxvfmhysba 300 Work Phone: 05-28-2021 History of Present [...] on clobetasol, has not been applying it HM-SNDTO-Kqsegcpdegv 300 Work Phone: 01-29-2021 History of Present illness Narrative 20yo first pap-pt reports it was very painfulCOC for AUB; since she was 13-13 years oldwas diagnosed with PCOShas never been sexually activewas prescribed clobetasol; daily for the first month, then QOD, currently using it twice a weekno c/o vaginal irritationpain with tampon use and unable to insertvaginal hygiene: water only TL-CWSFP-Ureglqofstw 300 Work Phone: Evaluation note Diagnosis Well woman exam with routine gynecological exam- Primary Routine gynecological examination Pelvic pain Vulvodynia Lichen sclerosus 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 [facility] Work Phone: Evaluation note* Diagnosis Screening-pulmonary TB- Primary Screening examination for pulmonary tuberculosis Encounter for drug screening Other specified examination Response to cell-mediated gamma interferon antigen without active TB Nonspecific reaction to cell mediated immunity measurement of gamma interferon antigen response without active tuberculosis [facility] Well adult exam- Primary Routine [...] single bacterial disease [facility] Diagnosis Anxiety with depression- Primary Obesity, Class II, BMI 35-39.9 Obesity, unspecified [facility] Diagnosis Hyperlipidemia, mixed- Primary Mixed hyperlipidemia [facility] Diagnosis Anxiety with depression- Primary Bacterial sinusitis Unspecified sinusitis (chronic) Encounter for immunization Need for other specified prophylactic vaccination against single bacterial disease Obesity, Class II, BMI 35-39.9 Obesity, unspecified [facility] Diagnosis Well woman exam with routine gynecological exam- Primary Routine gynecological examination Vulvodynia documented in this encounter [facility] Work Phone: Evaluation note* Diagnosis Myopia of both eyes- Primary Myopia [facility] Diagnosis Anxiety with depression- Primary [facility] Diagnosis Anxiety with depression [facility]* Pt. presents for [...] pt. * Pt. tearful about long-term trajectory [address] Work Phone: History of Present illness [...] to insert * vaginal hygiene: water only [id number]-Fjfimjwpcdj 300 Work Phone: History of Present illness [id number]-crcx-hig referred by Dilan Gross CNP for evaluation [...] vomiting, diarrhea, constipation, fevers, or chills MP-MRSA [facility] Work Phone: History of Present illness Omzfptoub74-ltli-zxh referred by Dilan Gross CNP for evaluation [...] nausea, vomiting, diarrhea, constipation, fevers, or chills [facility] Work Phone: History of Present illness Emmpomlrl74-yzxl-gdo here for f/u PCOS. Since last visit doing fine on metformin as far as tolerance but still struggling with weight. Followed low carb plan for several months but had minimal exercise....down 4 lbs. Hopes for beter results when busier this summer. She denies any chest pain, shortness of breath, nausea, vomiting, diarrhea, constipation, fevers, or chillsMP-MRSA [facility] Work Phone: Reason for referral (narrative)* Consultation (Routine) - Pending Review Specialty Diagnoses / Procedures Referred By Gustavo horowitz Referred To Contact Physical Therapy Diagnoses Pelvic pain Delroy Gross, YULIA [address] [facility] [address] [place] [address] Referral ID Status Reason Start Date Expiration Date Visits Requested Visits Authorized [id number] Pending Review Specialty Services Required 06/05/2023 06/04/2024 1 1 [facility] Work Phone: Summary Purpose Family History No [...] gotten better even with the cream * Ethologist declined, DeAndria Funches, CMAII * patient is here for vaginal irritation was prescribed cream to use states it has not gotten better even with the cream * Ethologist declined, Ryan Herrera CMAII patient is here for an endocrine consult for PCOS. Patient was referred by Delroy Gross--fabien bpatient is here for an endocrine consult for PCOS. Patient was referred by Delroy Gross--fabien b* F/U for: vulvodynia * Ethologist declined, Ryan Herrera CMAII patient is here for a follow up to PCOS--cmb* F/U for: vulvodynia & LS * Ethologist declined, Ryan Herrera CMAII Reason for Referral Specialty Diagnoses / Procedures Referred By Gustavo t Referred To Contact Psychology Diagnoses Anxiety with depression Procedures CONSULT TO PSYCHOLOGY OFFICE/OUTPATIENT [facility] 60 MINUTES Анна López DO [address] [place] [address] Referral ID Status Reason Start Date Expiration Date Visits Requested Visits Authorized [id number] Authorized PCP Requested Referral 06/16/2023 06/15/2024 1 1 Additional Source Comments INFORMATION SOURCE (unrecogn ized section and content) DATE CREATED AUTHOR 07/06/2018 Merged with [facility] DATE CREATED AUTHOR AUTHOR'S ORGANIZ ATION 02/17/2020 Merged with [facility] DATE CREATED AUTHOR AUTHOR'S ORGANIZ ATION 04/08/2022 [facility] DATE CREATED AUTHOR AUTHOR'S ORGANIZ ATION 04/08/2022 [facility] DATE CREATED AUTHOR AUTHOR'S ORGANIZ ATION 01/16/2024 [facility] DATE CREATED AUTHOR AUTHOR'S ORGANIZ ATION 08/12/2024 [facility] DATE CREATED AUTHOR AUTHOR'S ORGANIZ ATION 08/12/2024 [facility] DATE CREATED AUTHOR AUTHOR'S ORGANIZ ATION 09/07/2024 [facility] DATE CREATED AUTHOR AUTHOR'S ORGANIZ ATION 01/18/2025 [facility] Reason for Visit (unrecogniz ed section and content) Reason Comments Annual Exam Reason Comments Lab Orders Reason Comments New Patient Establish care previ ous pcp was [facility] Well Adult Reason Comments F/U 1 month [...] Care Teams (unrecognized sec tion and content) 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 Relationship Specialty Start Date End Date Faustino Tellez, SECURITY PUBLIC SAFETY OFFICER-SUMMER LAW ASSOCIATE [address] [facility] [address] [place] [address] PCP - General 08/03/20 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 Relationship Specialty Start Date End Date Анна López DO [address] [place] [id number] PCP - General Family Medicine 06/16/23 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 Relationship Specialty Start Date End Date Анна López DO [address] [place] [id number] PCP - General Family Medicine 06/16/23 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 Relationship Specialty Start Date End Date Анна López DO [address] [place] [id number] PCP - General Family Medicine 06/16/23 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 Relationship Specialty Start Date End Date Анна López DO [address] [place] [id number] PCP - General Family Medicine 06/16/23 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 Relationship Specialty Start Date End Date Анна López DO [address] [facility], [place] [id number] PCP - General Family Medicine 06/16/23 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 Relationship Specialty Start Date End Date Анна López DO [address] [facility] [place] [phone] PCP - General Family Medicine 06/16/23 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 Relationship Specialty Start Date End Date Анна López DO [address] [facility], [place] [id number] PCP - General Family Medicine 06/16/23 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 Relationship Specialty Start Date End Date Анна López DO [address] [facility], [place] [phone] PCP - General Family Medicine 06/16/23 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 Relationship Specialty Start Date End Date Faustino Tellez, SECURITY PUBLIC SAFETY OFFICER-SUMMER LAW ASSOCIATE [facility] [facility], [place] [address] PCP - General 08/03/20 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 Relationship Specialty Start Date End Date Анна López DO [address] [facility], [place] [phone] PCP - General Family Medicine 06/16/23 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 Relationship Specialty Start Date End Date Анна López DO [address] [facility], [place] [phone] PCP - General Family Medicine 06/16/23 Source Comments (unrecognize d section and content) In the event this informatio n is protected by the Federal Confidentiality of Alcohol and Drug Abuse Patient Records regulations: The Federal rules restrict any use of the information to criminally investigate or prosecute any alcohol or drug abuse patient.[facility] the event this information is protected by the Federal Confidentiality of Alcohol and Drug Abuse Patient Records regulations: The Federal rules restrict any use of the information to criminally investigate or prosecute any alcohol or drug abuse patient.[facility] the event this information is protected by the Federal Confidentiality of Alcohol and Drug Abuse Patient Records regulations: The Federal rules restrict any use of the information to criminally investigate or prosecute any alcohol or drug abuse patient.[facility]In the event this information is protected by the Federal Confidentiality of Alcohol and Drug Abuse Patient Records regulations: The Federal rules restrict any use of the information to criminally investigate or prosecute any alcohol or drug abuse patient.[facility] the event this information is protected by the Federal Confidentiality of Alcohol and Drug Abuse Patient Records regulations: The Federal rules restrict any use of the information to criminally investigate or prosecute any alcohol or drug abuse patient.[facility] the event this information is protected by the Federal Confidentiality of Alcohol and Drug Abuse Patient Records regulations: The Federal rules restrict any use of the information to criminally investigate or prosecute any alcohol or drug abuse patient.[facility] Hospital[facility] the event this information is protected by the Federal Confidentiality of Alcohol and Drug Abuse Patient Records regulations: The Federal rules restrict any use of the information to criminally investigate or prosecute any alcohol or drug abuse patient.[facility] HospitalIn the event this information is protected by the Federal Confidentiality of Alcohol and Drug Abuse Patient Records regulations: The Federal rules restrict any use of the information to criminally investigate or prosecute any alcohol or drug abuse patient.[facility] HospitalIn the event this information is protected by the Federal Confidentiality of Alcohol and Drug Abuse Patient Records regulations: The Federal rules restrict any use of the information to criminally investigate or prosecute any alcohol or drug abuse patient.[facility] the event this information is protected by the Federal Confidentiality of Alcohol and Drug Abuse Patient Records regulations: The Federal rules restrict any use of the information to criminally investigate or prosecute any alcohol or drug abuse patient.[facility] HospitalIn the event this information is protected by the Federal Confidentiality of Alcohol and Drug Abuse Patient Records regulations: The Federal rules restrict any use of the information to criminally investigate or prosecute any alcohol or drug abuse patient.[facility] FOR RECORDS PERTAINING TO PATIENTS WHO ARE [...] BE BASED ON THE PRIMARY CLINICAL RECORDS. [facility] [employer] [facility]. provides no warranty or guarantee of the accuracy or completeness of information in this document.
== END | disposition home or self-care (01) ==
PROVIDERS: PCP Family Medicine; Referring Provider Nurse Practitioner Women's Health; Visit Provider Nurse Practitioner Women's Health
DX: N63.12 Unspecified lump in the right breast, upper inner quadrant (principal)
CPT/HCPCS: 77062; 77066; G0279

== ENCOUNTER → 2025-04-24 | Outpatient (CLI) | payer OTHER, SELFPAY ==
--- NOTE | 2025-04-24 17:52 | US_ITS ---
PROCEDURE: PELVIC (NON ) 04/24/2025 REASON FOR EXAM: OLIGOMENORHIA TECHNIQUE: Procedure Code: USPEL Modality: US Procedure: PELVIC (NON ) Transabdominal only, patient refused transvaginal probe COMPARISON: None. FINDINGS: Measurements: Uterus measures 9 x 7 x 4.2 cm. No evidence of fibroid, normal echotexture of the uterus. Endometrium measures 11 mm in thickness and is normally hyperechoic. No fluid within the endometrium. Right ovary measures 3.8 x 3.5 x 1.8 cm. Left ovary measures 3.8 x 3.2 x 4 cm Neither ovary shows suspicious solid or cystic mass Bladder distends normally DOPPLER: Color Doppler: Normal color flow doppler signal at both ovaries. Spectral Doppler: Normal arterial inflow and venous outflow signal at both ovaries. US/Pelvic (Non ) IMPRESSION: Sonographically normal pelvis Reading Location: [id number]
== END | disposition home or self-care (01) ==
LOC: US 17:51
PROVIDERS: PCP Family Medicine; Referring Provider Nurse Practitioner Women's Health; Visit Provider Nurse Practitioner Women's Health
DX: N91.5 Oligomenorrhea, unspecified (principal)
CPT/HCPCS: 76856